=== PATIENT | female | born 1945 | race Caucasian/White ===

== ENCOUNTER 2019-10-16 11:33 | Outpatient (CLI) | payer MEDICARE, MEDICAID, SELFPAY ==
--- NOTE | 2019-10-16 11:46 | XR_ITS ---
WS: [id number] SHOULDER RIGHT TECHNIQUE: 3 views of the right shoulder CLINICAL INFORMATION: chronic right shoulder pain COMPARISON: None. FINDINGS: Mild hypertrophic changes acromioclavicular joint. Normal glenohumeral joint. Acromion is normal in a ppearance. Normal glenoid. No evidence of acute fracture dislocation. Calcified granulomas. Calcified hilar nodes. XR/XR shoulder RT min 2V* [id number] IMPRESSION: No acute right shoulder findings
== END 2019-10-16 11:34 | disposition home or self-care (01) ==
LOC: RADWPI 11:40
PROVIDERS: Family Provider Family Medicine; PCP Family Medicine; Visit Provider Family Medicine
DX: M25.511 Pain in right shoulder (principal); G89.29 Other chronic pain
CPT/HCPCS: 73030

== ENCOUNTER → 2019-11-12 14:59 | Outpatient (BNVA) | payer MEDICARE, MEDICAID, SELFPAY | PROVIDERS: Family Provider Family Medicine; PCP Family Medicine; Visit Provider Family Medicine | DX: I10 Essential (primary) hypertension (principal); E78.5 Hyperlipidemia, unspecified | CPT/HCPCS: 80053; 80061; 82043; 85025 ==

== ENCOUNTER → 2020-01-24 14:21 | Outpatient (BNVA) | payer MEDICARE, MEDICAID, SELFPAY | PROVIDERS: Family Provider Family Medicine; PCP Family Medicine Adult Medicine; Visit Provider Internal Medicine | DX: M81.0 Age-related osteoporosis without current pathological fracture (principal); Z79.899 Other long term (current) drug therapy; D86.9 Sarcoidosis, unspecified; M19.90 Unspecified osteoarthritis, unspecified site; Z86.73 Personal history of transient ischemic attack (TIA), and cerebral infarction without residual deficits | CPT/HCPCS: 36415; 99204 ==

== ENCOUNTER 2020-01-24 15:24 | Outpatient (CLI) | payer MEDICARE, MEDICAID, SELFPAY ==
--- NOTE | 2020-01-24 15:40 | XR_ITS ---
WS: [id number] TECHNIQUE: 2 views of the left hand CLINICAL INFORMATION: hand pain COMPARISON: None. FINDINGS: Osteopenia. Mild narrowing of the radiocarpal joint. Degenerative arthritis at the first CMC and STT. PIP and DIP joint narrowing worse involving the second through fifth digits. Normal metacarpals. No acute fractures. XR/XR hand LT 2V [id number] IMPRESSION: 1. Osteopenia with degenerative arthritis worse at the first CMC and IP joints
--- NOTE | 2020-01-24 15:40 | XR_ITS ---
WS: [id number] TECHNIQUE: 2 views of the right hand CLINICAL INFORMATION: hand pain COMPARISON: None. FINDINGS: Mild narrowing of the radiocarpal joint. Degenerative arthritis worse first CMC. Mild PIP and DIP javier nt narrowing. Normal metacarpals. No acute fractures. XR/XR hand RT 2V [id number] IMPRESSION: 1. Osteopenia. 2. Mild narrowing of the radiocarpal joint. 3. Degenerative arthritis worse at the first CMC and IP joints
--- NOTE | 2020-01-24 15:40 | XR_ITS ---
WS: [id number] LUMBAR SPINE TECHNIQUE: 3 views of the lumbar spine CLINICAL INFORMATION: lower back pain COMPARISON: None. FINDINGS: Suggestion of partially calcified lobulated infrarenal abdominal aortic aneurysm. This is d ifficult to visualize but measures approximately 4 cm in AP dimension. Recommend further evaluation C TA abdomen pelvis. Five [id number] lumbar vertebral bodies. Mild lumbar curve convex left. Vascular calcification. Osteopenia. Mild disc space narrowing L4-5 and L5-S1. Aortic calcification. Moderate facet arthropathy lower lumbar spine. XR/XR lumbar spine 2-3V* [id number] IMPRESSION: 1. Suggestion of lobulated calcified infrarenal abdominal aortic aneurysm. Rec ommend further evaluation with CTA abdomen pelvis. This is difficult to visuali ze but appears to measure approximately 4 cm in AP dimension 2. Mild spondylitic changes lumbar spine. Osteopenia. 3. Disc space narrowing worse at L4-L5 and L5-S1. 4. Moderate facet arthropathy lower lumbar spine.
--- NOTE | 2020-01-24 15:40 | XR_ITS ---
WS: [id number] KNEE RIGHT TECHNIQUE: 2 views of the right knee CLINICAL INFORMATION: knee pain COMPARISON: None. FINDINGS: Normal anatomic alignment. Osteopenia. Mild narrowing in the medial and lateral joint compartments. M oderate narrowing at the patellofemoral articulation. No significant effusion. Vascular calcification . XR/XR knee RT 1-2V [id number] IMPRESSION: Mild to moderate tricompartmental arthritis.
--- NOTE | 2020-01-24 15:40 | XR_ITS ---
WS: [id number] KNEE LEFT TECHNIQUE: 2 views of the left knee CLINICAL INFORMATION: knee pain COMPARISON: None. FINDINGS: Mild degenerative arthritis. No evidence of acute fracture dislocation. No significant effusion. Justin lla is normal. Vascular calcification. XR/XR knee LT 1-2V [id number] IMPRESSION: Mild degenerative arthritis. No acute fractures.
--- NOTE | 2020-01-24 15:40 | XR_ITS ---
WS: [id number] CERVICAL SPINE FLEXION EXTENSION TECHNIQUE: 3 views of the cervical spine: lateral neutral, flexion and extension views. CLINICAL INFORMATION: neck pain COMPARISON: None. FINDINGS: Exaggeration of the normal cervical lordosis. 1.5 mm anterolisthesis C4 on C5. Slight retrolisthesis C5 on C6 and C6 on C7. Normal prevertebral soft tissues. Normal C1-2 articulation. Anterolisthesis C4 on C5 in flexion measures 2 mm. This decreases to nearly neutral in extension. Disc space narrowing worse at C5-C6. XR/XR cervical spine fl/ex [id number] IMPRESSION: 1. Mild spondylitic changes. 2. Mild flexion instability C4-5 described above. 3. Disc space narrowing worse at C5-6.
== END 2020-01-24 15:25 | disposition home or self-care (01) ==
PROVIDERS: Family Provider Family Medicine; PCP Family Medicine Adult Medicine; Visit Provider Internal Medicine
DX: M54.2 Cervicalgia (principal); M54.5 Low back pain; M53.2X2 Spinal instabilities, cervical region; M47.816 Spondylosis without myelopathy or radiculopathy, lumbar region; M85.88 Other specified disorders of bone density and structure, other site; M17.0 Bilateral primary osteoarthritis of knee; M19.042 Primary osteoarthritis, left hand; M19.041 Primary osteoarthritis, right hand; M85.89 Other specified disorders of bone density and structure, multiple sites
CPT/HCPCS: 72040; 72100; 73120; 73560; 80053; 82306; 84100; 85025; 85651; 86431

== ENCOUNTER → 2020-02-25 14:13 | Outpatient (BNVA) | payer OTHER, BC, MEDICAID, SELFPAY | PROVIDERS: Family Provider Family Medicine; PCP Family Medicine Adult Medicine; Visit Provider Internal Medicine | DX: M19.90 Unspecified osteoarthritis, unspecified site (principal); M81.0 Age-related osteoporosis without current pathological fracture; Z79.899 Other long term (current) drug therapy; R70.0 Elevated erythrocyte sedimentation rate; M54.2 Cervicalgia; F17.210 Nicotine dependence, cigarettes, uncomplicated | CPT/HCPCS: 36415; 99214 ==

== ENCOUNTER 2020-02-25 15:01 | Outpatient (CLI) | payer BC, MEDICAID, SELFPAY ==
--- NOTE | 2020-02-25 15:13 | XR_ITS ---
WS: [id number] Exam: XR chest 2V* [id number] Date/Time of Exam: 02/25/2020 3:13 PM Reason For Exam: M81.0 - Age-related osteoporosis without current pathological fracture No priors. The lungs are hyperinflated and clear. Normal cardiomediastinal structures and bony elements. No pleu ral effusions. XR/XR chest 2V* [id number] IMPRESSION: 1. Pulmonary hyperinflation which may indicate obstructive lung disease. No acu te process.
== END 2020-02-25 15:02 | disposition home or self-care (01) ==
LOC: RAD 15:31 → RADWPI 15:55
PROVIDERS: PCP Family Medicine Adult Medicine; Visit Provider Internal Medicine
DX: M81.0 Age-related osteoporosis without current pathological fracture (principal)
CPT/HCPCS: 71046; 81001; 81003; 85025; 85651; 86140

== ENCOUNTER 2020-03-21 15:14 | Outpatient (CLI) | payer MEDICARE, MEDICAID, SELFPAY ==
--- NOTE | 2020-03-21 15:20 | XR_ITS ---
WS: [id number] SCREENING DEXA SCAN [facility] CLINICAL INFORMATION: M81.0 - Age-related osteoporosis without current pathological fracture COMPARISON: None. FINDINGS: The L1-L4 bone mineral density measures 0.962 g/cm2. This corresponds to a T score score of -1.8 and Z score of -0.6. Left femoral neck bone mineral density measures 0.713 g/cm2. This corresponds to a T score of -2.3 an d Z score of -1.1. Right femoral neck bone mineral density measures 0.708 g/cm2. This corresponds to a T score -2.4of an d Z score of -1.1. Mean femoral neck bone mineral density measures 0.711 g/cm2. This corresponds to a T score of -2.4 an d Z score of -1.1. XR/XR DEXA axial skeleton* [id number] IMPRESSION: Osteopenia lumbar spine. Osteopenia approaching osteoporosis in the femoral nec ks. Patient's FRAX calculated 10 year probability for major osteoporotic fracture i s 30.8 % and osteoporotic hip fracture is 13.1%.
== END 2020-03-21 15:15 | disposition home or self-care (01) ==
LOC: RADWPI 15:20
PROVIDERS: PCP Family Medicine Adult Medicine; Visit Provider Internal Medicine
DX: M81.0 Age-related osteoporosis without current pathological fracture (principal); M85.88 Other specified disorders of bone density and structure, other site
CPT/HCPCS: 77080

== ENCOUNTER 2020-05-04 22:36 | Inpatient (IN) | payer MEDICARE, MEDICAID, SELFPAY ==
--- NOTE | 2020-05-04 22:42 | XR_ITS ---
WS: [id number] Exam: XR hip RT 2-3V wo/w pel* [id number] Date/Time of Exam: 05/04/2020 10:50 PM Reason For Exam: fall There is an intertrochanteric fracture of the right hip with coxa vera deformity. The lesser trochant er is fractured. Moderate DJD of the joint compartment. Large amount of stool in the rectosigmoid col on. XR/XR hip RT 2-3V wo/w pel* [id number] IMPRESSION: 1. Intertrochanteric fracture of the right hip with coxa vera deformity.
--- NOTE | 2020-05-04 22:42 | XR_ITS ---
WS: [id number] Exam: XR knee RT 3V* [id number] Date/Time of Exam: 05/04/2020 10:50 PM Reason For Exam: fall Comparison 01/24/2020. No obvious fracture or dislocation noted. Soft tissues are unremarkable. XR/XR knee RT 3V* [id number] IMPRESSION: 1. No acute fracture or dislocation from images presented.
--- NOTE | 2020-05-04 22:42 | XR_ITS ---
WS: [id number] Exam: XR chest 1V portable [id number] Date/Time of Exam: 05/04/2020 10:50 PM Reason For Exam: cp Comparison 02/25/2020. Findings: The lungs are clear and fully expanded. Costophrenic angles are sharp. No infiltrates. Bronchovascula r relief appears normal. Cardiac silhouette is unremarkable. Bony elements are intact. XR/XR chest 1V portable [id number] IMPRESSION: Unremarkable chest radiograph.
--- NOTE | 2020-05-04 22:44 | ED_ITS ---
HPI - Fall General: Chief Complaint: Fall Stated Complaint: FALL Time Seen by Provider: 05/04/20 22:40 Source: patient and EMS Mode of arrival: EMS Limitations: no limitations History of Present Illness: HPI Narrative: 74-year-old female who is here after a ground-level fall. She states she tripped and fell roughly 30 minutes ago. She landed on her right leg and has severe hip and knee pain. She does have deformity to her leg. States the pain is sharp in nature and rates it a 9 out of 10. She is unable to bear any weight. complaint: fall Associated symptoms-after fall: Denies abdominal pain, chest pain or headache(s) Review of Systems Const: Denies: fever(s), chills, body aches or change in appetite Eyes: Denies: blurry vision or eye discomfort ENMT: Denies: throat pain or dental pain Card: Denies: chest pain Resp: Denies: dyspnea GI: Denies: abdominal pain, nausea, vomiting or diarrhea : Denies: dysuria Musc: Reports: joint pain Skin/Breast: Denies: rash Neuro: Denies: headache(s) Psych: Denies: depression Parrish/Lymph: Denies: easy bruising All/Imm: Denies: urticaria PFSH ED PFSH: Medical History Depression with anxiety Dyslipidemia Essential hypertension Fibromyalgia IBS (irritable bowel syndrome) Incontinence Obesity (BMI 30-39.9) Osteoporosis TIA (transient ischemic attack) Surgical History H/O hemorrhoidectomy H/O: hysterectomy History of appendectomy History of cholecystectomy History of tonsillectomy Family History Other CAD (coronary artery disease) Cancer Hypertension Social History Smoking and tobacco status: current every day smoker cigarettes Packs smoked per day: 1.5 Years cigarettes smoked: 60 Second hand smoke exposure: Yes Smoking risk assessment/counseling performed?: Yes Alcohol intake: current Alcohol intake frequency: holidays/special occasions only Alcohol type: beer Desire information about alcohol rehabilitation?: No Counseling given: No Desire information about substance/drug rehabilitation?: No Counseling given: No Lives independently: Yes Household members: none Marital status: Current occupational status: retired History of recent travel: No Current gender identity: Female Physical Exam Const: COMMON NORMALS: no acute distress, patient oriented x3 and healthy appearing HENMT: COMMON NORMALS: normocephalic and atraumatic HEAD & SCALP: normocephalic and atraumatic Eye: COMMON NORMALS: Equal, round and reactive pupils present and EOMs intact bilaterally PUPIL: Yes Equal, round and reactive pupils present Neck/C-Spine: COMMON NORMALS: full ROM and supple Chest: COMMONS NORMALS: normal inspection of the chest and normal palpation of entire chest wall Resp: COMMON NORMALS: normal respiratory effort, No retractions, No use of accessory muscles and clear to auscultation bilaterally AUSCULTATION: clear to auscultation bilaterally Cardio: COMMON NORMALS: regular rate, regular rhythm and No murmurs present (Cardio) RATE: regular rate RHYTHM: regular rhythm GI: COMMON NORMALS: Normal to inspection, nondistended, normoactive bowel sounds present, Soft to palpation, non-tender and no masses PALPATION: Yes Soft to palpation Extremity: NARRATIVE EXTREMITY EXAM: Tenderness over right hip femur and knee. Distal pulses are intact distal sensations are intact as well. Neuro: COMMON NORMALS: patient oriented x3, moves all extremities and no focal motor deficits Psych: COMMON NORMALS: mental status grossly normal, Normal thought process present and cooperative THOUGHT PROCESS: Normal thought process present Skin: COMMON NORMALS: no rashes or lesions noted and no wounds GENERAL SKIN EXAM: no rashes or lesions noted Course Vital Signs: Vital signs: Vital Signs Pulse Rate 71 05/04/20 22:47 Respiratory Rate 22 H 05/04/20 22:58 Blood Pressure 171/81 05/04/20 22:47 Pulse Oximetry 94 05/04/20 22:58 MDM - Fall MDM Narrative: Medical decision making narrative: Patient presents with a right hip fracture from a fall. She has no signs of head injury. I spoke to hospitalist and will admit. I also spoke to Dr. De La Fuente of orthopedics who is consulted. Imaging Data^: xr r hip: Attestation: I personally reviewed and interpreted this imaging study as follows: My impression: Displaced intertrochanteric fracture of the right hip EKG Data^: EKG 1: Attestation: I personally reviewed and interpreted this EKG as follows: EKG interpretation date: 05/04/20 EKG interpretation time: 23:06 Interpretation: nsr hr [address] or t wave abnormalities qrs 88 qtc 413 Discharge Plan Discharge Patient Disposition: Admitted As Inpatient Clinical Impression: Fall Qualifiers: Encounter type: initial encounter Qualified Code(s): W19.XXXA - Unspecified fall, initial encounter Closed right hip fracture Qualifiers: Encounter type: initial encounter Qualified Code(s): S72.001A - Fracture of unspecified part of neck of right femur, initial encounter for closed fracture Condition: Stable Coding Level of Care Code ED Fly Rail Operator for Chg Fwd Exam Comprehensive
[2020-05-04 22:47] VITALS: BP 171/81; PULSE 71; RESP 14; O2SAT 92; BMI 29.9
[2020-05-04 22:58] VITALS: RESP 22; O2SAT 94
[2020-05-04] MEDS: HYDROmorphone 1 mg/mL INJ 1 mL IVP (22:58)
--- NOTE | 2020-05-04 23:01 | ECG_ITS ---
[facility] Test Date: 2020-05-04 Pat Name: Bryce Schmidt Department: Room: Gender: Female Retail Event Assistant: : 1945 Requested By: Fabi Langford Order Number: [id number] Reading MD: SHARMILA HUNTER Measurements Intervals [place] Rate: 66 P: 50 TX: 176 QRS: -12 QRSD: 88 T: 47 QT: 400 QTc: 420 Interpretive Statements SINUS RHYTHM No previous ECG available for comparison Electronically Signed On 05-05-2020 18:35:56 MOBILE CRANE OPERATOR by SHARMILA HUNTER [email or web address]
--- NOTE | 2020-05-04 23:43 | P.HP_ITS ---
Providers/Chief Complaint Primary Care Provider: Jose Rossi MD Chief Complaint: FALL History of Present Illness Bryce Schmidt is a 74 year old female who carries history of TIA which was 2 years ago for which she takes aspirin & atorvastatin, presented today after sustaining a fall at home. Patient is stating that today she fell on her patio after twisting her ankle. She was in excruciating pain, was not able to bear any weight hence EMS was called. She did not endorse any chest pain shortness of breath seizure-like activity or syncopal event. No recent TIA or neurological changes. Diagnostics in the ER revealed right intertrochanteric hip fracture, Dr. Dykes has been consulted. At the time of my evaluation patient was complaining of muscle cramps and pain 10 she had received 2 mg of Dilaudid, I have requested fentanyl 25 mg IV push along tizanidine, there is no vascular compromise, EKG shows sinus rhythm Review of Systems Const: Denies: fever(s), chills or body aches Eyes: Denies: change in vision ENMT: Denies: throat pain Card: Denies: chest pain Resp: Denies: dyspnea GI: Denies: abdominal pain : Denies: flank pain Musc: Reports: extremity pain, joint pain, joint stiffness and muscle cramps; Denies: joint warmth Skin/Breast: Denies: lesions Neuro: Denies: headache(s) or lack of coordination Psych: Denies: anxiety Endo: Denies: polyuria Parrish/Lymph: Denies: easy bruising All/Imm: Denies: urticaria Medications/Allergies Home Medications Medication Instructions Recorded Confirmed Last Taken Type denosumab 60 mg/mL subcutaneous 60 mg SUBCUT .every 6 months ml 10/10/19 04/16/20 Unknown History syringe ascorbate calcium (vitamin C) 500 500 mg PO DAILY 12/26/19 04/16/20 Unknown His tory mg tablet cranberry extract 250 mg capsule 250 mg PO DAILY 12/26/19 04/16/20 Unknown History diphenhydramine 25 1 tab PO Q6H PRN 12/26/19 04/16/20 Unknown History mg-acetaminophen 500 mg tablet vitamin E 200 unit capsule 200 unit PO DAILY 12/26/19 04/16/20 Unknown History cholecalciferol (vitamin D3) 1,250 50,000 unit PO .qweek #14 cap 11/16/20 01/06/21 Unknown Rx mcg (50,000 unit) capsule fenofibrate micronized 200 mg 200 mg PO DAILY #30 cap 02/25/20 04/16/20 Unknown Rx capsule Nexium 40 mg capsule,delayed 40 mg PO DAILY 30 Days #30 cap NS 04/01/20 04/16/20 Unknown Rx release acetaminophen 500 mg tablet 500 mg PO DAILY PRN tab 04/16/20 04/16/20 Unknown History albuterol sulfate 90 mcg/actuation 2 puff INHALATION QID PRN 30 Days 04/16/20 04/16/20 Unknown Rx aerosol inhaler #18 g ibuprofen 200 mg capsule 600 mg PO Q6H PRN cap 04/16/20 04/16/20 Unknown History potassium 99 mg tablet 99 mg PO DAILY tab 04/16/20 04/16/20 Unknown History umeclidinium 62.5 mcg-vilanterol 1 inh INHALATION DAILY 30 Days #60 04/16/20 04/16/20 Unknown Rx 25 mcg/actuation powdr for ea inhalation cholecalciferol (vitamin D3) 1,250 50,000 unit PO .qweek #14 cap 04/17/20 Unknown Rx mcg (50,000 unit) capsule amlodipine 10 mg tablet 10 mg PO DAILY #30 tab 04/21/20 04/21/20 Unknown Rx atorvastatin 80 mg tablet 80 mg PO DAILY #30 tab 04/21/20 04/21/20 Unknown Rx clopidogrel 75 mg tablet 75 mg PO DAILY #90 tab 04/21/20 04/21/20 Unknown Rx fluticasone propionate 50 1 spray INTRANASAL BID #15.8 ml 04/21/20 04/21/20 Unkn own Rx mcg/actuation nasal spray,suspension multivitamin,sy-sfbc-wekkkjpo 1 tab PO DAILY 30 Days #30 tab 04/21/20 04/21/20 Unknown Rx nebivolol 20 mg tablet 20 mg PO DAILY #30 tab 04/21/20 04/21/20 Unknown Rx venlafaxine 75 mg capsule,extended 75 mg PO DAILY #30 cap 04/21/20 04/21/20 Unknown Rx release 24 hr Allergies Allergy/AdvReac Type Severity Reaction Status Date / Time alprazolam [From Xanax] AdvReac Mild i pass Verified 04/16/20 16:18 out clonidine AdvReac Mild memory loss Verified 04/16/20 16:18 codeine AdvReac Mild unknown Verified 04/16/20 16:18 duloxetine [From Cymbalta] AdvReac Mild insomnia Verified 04/16/20 16:18 levetiracetam AdvReac Mild depression Verified 04/16/20 16:18 metformin AdvReac Mild diarrhea Verified 04/16/20 16:18 valsartan [From Diovan] AdvReac Mild unknown Verified 04/16/20 16:18 PFSH Acute PFSH: Medical History Depression with anxiety Dyslipidemia Essential hypertension Fibromyalgia IBS (irritable bowel syndrome) Incontinence Obesity (BMI 30-39.9) Osteoporosis TIA (transient ischemic attack) Surgical History H/O hemorrhoidectomy H/O: hysterectomy History of appendectomy History of cholecystectomy History of tonsillectomy Family History Other CAD (coronary artery disease) Cancer Hypertension Social History Smoking and tobacco status: current every day smoker cigarettes Packs smoked per day: 1.5 Years cigarettes smoked: 60 Second hand smoke exposure: Yes Smoking risk assessment/counseling performed?: Yes Alcohol intake: current Alcohol intake frequency: holidays/special occasions only Alcohol type: beer Desire information about alcohol rehabilitation?: No Counseling given: No Desire information about substance/drug rehabilitation?: No Counseling given: No Lives independently: Yes Household members: none Marital status: Current occupational status: retired History of recent travel: No Current gender identity: Female Vitals/I&O/Wt Last Vital Signs Pulse 71 05/04/20 22:47 Resp 22 H 05/04/20 22:58 BP 171/81 05/04/20 22:47 Pulse Ox 94 05/04/20 22:58 Weight last 48 hrs Weight 81.647 kg Physical Exam Narrative: EXAM NARRATIVE: Elderly female Who appears to be in distress complaining of 10/10 right hip pain S1, S2 sinus rhythm no signs of heart failure No neurological deficit EOMI, PERRLA Awake alert oriented x3 Bilateral breath sounds without adventitious rhonchi or crackles Abdomen soft nontender bowel sound present No extremity no edema gangrene or ulcer No vascular compromise of lower extremity No hematoma noted around right hip area A&P Assessment and plan (1) Fall: Status: Acute Qualifiers: Encounter type: initial encounter Qualified Code(s): W19.XXXA - Unspecified fall, initial encounter (2) Closed right hip fracture: Status: Acute Qualifiers: Encounter type: initial encounter Qualified Code(s): S72.001A - Fracture of unspecified part of neck of right femur, initial encounter for closed fracture Additional A&P Information Right intertrochanteric hip fracture No vascular compromise Analgesia with fentanyl and Dilaudid along bowel regimen N.p.o. D5 half-normal saline maintenance rate to be initiated Dr. De La Fuente has been consulted Patient is attributing her fall to losing her balance and twisting her right ankle no signs of syncope, EKG sinus rhythm History of TIA: No acute neurological deficit, I would only continue aspirin along with atorvastatin discontinue Plavix Perioperative evaluation: Patient has decent functional status at home, I would continue her nebivolol aspirin and atorvastatin, no acute cardiology work-up Considering urgency of right hip fracture repair, RCRI class I risk, patient does not take lisinopril DVT prophylaxis SCDs, will need anticoagulating agent for discharge N.p.o. Full code Attestations Medical Necessity Statement*: Anticipating stay in the hospital course more than 2 midnights currently need management for right hip fracture Time Spent in Patient Care: Greater than 35 minutes (>than 50% of time spent in counselling and/or direct pt care on unit) . 50mins Coding Level of Care Code Acute Sort Supervisor for Chg Fwd Diagnoses Fall W19.XXXA Encounter type: initial encounter Closed right hip fracture S72.001A Encounter type: initial encounter
[2020-05-05] VITALS (32 sets, daily range): BP systolic 100–195; BP diastolic 68–103; PULSE 20–91; RESP 13–85; TEMP 36.6–37.6; O2SAT 90–96
--- NOTE | 2020-05-05 | SCC_ITS ---
Procedure Done: Open reduction internal fixation right hip with intramedullary device 75.5 seconds of fluoroscopic guidance, for a cumulative dose of 9.55 mGy, was provided to Dr. De La Fuente by the radiology department. C-arm images of the RIGHT hip were saved for the patient's permanent record. [facility]
[2020-05-05] MEDS: HYDROmorphone 1 mg/mL INJ 1 mL IVP (00:45)
[2020-05-05 01:03] LABS: Basophils # 0.1 10^3/uL (0.0-0.1); Basophils % 0.3 %; Eosinophils # 0.1 10^3/uL (0.0-0.8); Eosinophils % 0.4 %; Hematocrit 40.3 % (37.0-47.0); Hemoglobin 13.2 g/dL (11.5-15.3); Lymphocytes # 1.8 10^3/uL (0.8-4.8); Lymphocytes % 9.4 %; Mean Corpuscular HGB Conc 32.8 g/dL (30.0-36.0); Mean Corpuscular Hemoglobin 30.4 pg (28.0-34.0); Mean Corpuscular Volume 92.9 fL (81-99); Mean Platelet Volume 9.9 fL (7.4-10.4); Monocytes # 0.8 10^3/uL (0.2-0.9); Monocytes % 4.2 %; Neutrophils # 16.29 10^3/uL (1.8-7.7); Neutrophils % 85.1 %; Nucleated Red Blood Cells % 0 %; Platelet Count 457 10^3/cmm (130-400); Red Blood Count 4.34 10^6/uL (4.1-5.3); Red Cell Distribution Width 13.2 % (12.1-15.1); White Blood Count 19.1 10^3/uL (4.0-10.0)
[2020-05-05 01:09] LABS: INR 1.08 (0.8-1.2)
[2020-05-05 01:17] LABS: Alanine Aminotransferase 18 U/L (0-33); Albumin Level 3.8 g/dL (3.5-5.2); Alkaline Phosphatase 81 IU/L (35-105); Anion Gap 15.5 (5-19); Aspartate Amino Transferase 18 U/L (0-32); Blood Urea Nitrogen 21 mg/dL (8-23); Calcium 9.4 mg/dL (8.5-10.5); Carbon Dioxide 22 mmol/L (22-29); Chloride 101 mmol/L (98-107); Globulin 3.2 g/dL (1.3-4.6); Glucose 172 mg/dL (65-115); Osmolality Calculated 285 mOsm/kg (285-295); Potassium 4.5 mmol/L (3.5-5.1); Sodium 134 mmol/L (136-145); Total Bilirubin 0.3 mg/dL (0.15-1.2)
[2020-05-05] MEDS: dextrose 5%-sod chloride 0.45% 1,000 ML 30 ML IV (02:40)
[2020-05-05] MEDS: HYDROmorphone 1 mg/mL INJ 1 mL 0.5 MG IVP ×3 (05:17→15:17)
[2020-05-05 05:31] LABS: Basophils # 0.1 10^3/uL (0.0-0.1); Basophils % 0.2 %; Hematocrit 39.7 % (37.0-47.0); Hemoglobin 12.9 g/dL (11.5-15.3); Lymphocytes # 1.3 10^3/uL (0.8-4.8); Lymphocytes % 6.4 %; Mean Corpuscular HGB Conc 32.5 g/dL (30.0-36.0); Mean Corpuscular Hemoglobin 30.5 pg (28.0-34.0); Mean Corpuscular Volume 93.9 fL (81-99); Mean Platelet Volume 10.1 fL (7.4-10.4); Monocytes # 0.8 10^3/uL (0.2-0.9); Monocytes % 4.1 %; Neutrophils # 17.84 10^3/uL (1.8-7.7); Neutrophils % 88.8 %; Nucleated Red Blood Cells % 0 %; Platelet Count 407 10^3/cmm (130-400); Red Blood Count 4.23 10^6/uL (4.1-5.3); Red Cell Distribution Width 13.2 % (12.1-15.1); White Blood Count 20.1 10^3/uL (4.0-10.0)
[2020-05-05 06:39] LABS: Anion Gap 19.7 (5-19); Blood Urea Nitrogen 21 mg/dL (8-23); Calcium 9.7 mg/dL (8.5-10.5); Carbon Dioxide 21 mmol/L (22-29); Chloride 104 mmol/L (98-107); Glucose 148 mg/dL (65-115); Osmolality Calculated 296 mOsm/kg (285-295); Potassium 4.7 mmol/L (3.5-5.1); Sodium 140 mmol/L (136-145)
[2020-05-05 06:41] LABS: Creatinine Clr Calc Pharmacy 44.7273
--- NOTE | 2020-05-05 09:27 | PC.CHAP ---
Pastoral Care Encounter/Spiritual Assessment Type of Contact [] Declined supervisor patching visit [] Patient/Family/Request visit [] Outpatient visit [] Follow-up visit [] Physician referral [] Code/Alert [x] Routine visit [] Staff referral [] Actively dying [x] Patient sleeping [] Family support [] [] Out of room [] Palliative care [] [] Receiving care in room [] Pre-surgical visit [] Trauma [] Long length of stay [] ICU visit [] Other: Relational/Emotional Strength [] Patient feels connected with others/family/visitors/staff [] Distress [] Loneliness/isolation [] Abandonment Spirituality of Patient [] Person of Katerina [] Attends Orthodoxy of their Katerina [] Believes in Prayer [] Reads Bible or Latter Day materials [] There are Spiritual issues to be addressed Admitting Office Escort Interventions [] Prayer [] Active listening [] Non-anxious presence [] Spiritual/emotional support [] Crisis/trauma care [] Spiritual counseling [] Bereavement support [] Provided bereavement packet [] Provided Bible/devotional materials [] Provided toy/stuffed animal, coloring book to patient or family member [] Provided Communion [] Anointing/[place] [] Salvation [] Completed spiritual assessment [] Other: Impact on Illness or Injury [] Angry [] Fearful [] Anxious [] Often cries [] Exhaustion [] Unable to work [] Unable to attend congregation [] Unable to walk/stand [] Unable to read [] Unable to drive [] Unable to eat/drink [] Unable to sleep [] Unable to be with family [] Patient intubated [] Other: Summary Time spent with patient
[2020-05-05 10:49] LABS: SARS Covid-2 Antigen Negative (Negative)
--- NOTE | 2020-05-05 11:42 | P.PN_ITS ---
Subjective Subjective: Interval history: Noted overnight. On examination patient lying comfortably in bed. Complaining of extreme pain in the hip. Denies any nausea, vomiting, headache. States that this is the worst pain she has had in her life. Patient is due for OR at around 3 PM with orthopedics. Vitals/I&O/Wt Last Vital Signs Temp 98.7 F 05/05/20 11:35 Pulse 77 05/05/20 11:35 Resp 19 H 05/05/20 11:35 BP 175/79 05/05/20 11:35 Pulse Ox 92 05/05/20 11:35 Weight last 48 hrs Weight 81.647 kg Physical Exam Narrative: EXAM NARRATIVE: Elderly female Who appears to be in distress complaining of 10/10 right hip pain S1, S2 sinus rhythm no signs of heart failure No neurological deficit EOMI, PERRLA Awake alert oriented x3 Bilateral breath sounds without adventitious rhonchi or crackles Abdomen soft nontender bowel sound present No extremity no edema gangrene or ulcer No vascular compromise of lower extremity No hematoma noted around right hip area Urinary Catheter Management^: Klein Latex: Cath Placed During This Visit: yes Reason for Continuing Indwelling Catheter: Perioperative Use in Selected Surgeries Urinary Catheter Date of Insertion: 05/05/20 Urinary Catheter Time of Insertion: 01:30 Data : 05/05/20 04:47 05/05/20 04:47 A&P Assessment and plan (1) Intertrochanteric fracture of right hip: Status: Acute (2) Fall: Status: Acute Qualifiers: Encounter type: initial encounter Qualified Code(s): W19.XXXA - Unspecified fall, initial encounter (3) Leukocytosis: Status: Acute (4) COPD (chronic obstructive pulmonary disease): Status: Acute (5) Essential hypertension: Status: Chronic (6) MARY BETH (acute kidney injury): Status: Acute Additional A&P Information Right intertrochanteric hip fracture: Orthopedics has been consulted and plan for OR today. Dilaudid 0.5 IV every 4 hours, Tylenol 1 g every 8 hours for pain control. Anticoagulation, physical therapy, perioperative antibiotics as per orthopedics. Will continue to monitor hemoglobin postoperatively. Continue D5 half NS at 50 cc/h. Leukocytosis: Most likely secondary to stress response but cannot rule out possible sepsis. Check blood culture, procalcitonin, MRSA swab. Urine analysis negative for any signs of UTI, chest x-ray negative for any signs of consolidations. For now start patient on Zosyn as patient is going to the OR today. If patient continues to remain afebrile we will discontinue antibiotics in next 48 hours. MARY BETH: Most likely secondary dehydration. Continue to monitor renal functions daily. Medical reconciliation done for nephrotoxic drugs. Increase fluid as above to 50 cc/h. COPD: Start patient on DuoNebs every 6 hours. Oxygen supplementation keeping saturation over 92%. Hypertension: Goal blood pressure less than 140/90 mmHg Restart home medications. Continue other chronic home medications. Check iron panel, TSH. DVT prophylaxis SCDs, will need anticoagulating agent for discharge N.p.o. Full code Attestations Medical Necessity Statement*: Requires further hospitalization for management of right intertrochanteric hip fracture post fall, MARY BETH, leukocytosis under evaluation Time Spent in Patient Care: Greater than 35 minutes (>than 50% of time spent in counselling and/or direct pt care on unit) . Coding Level of Care Code Acute Speech Pathology Supervisor for Colton Lee Diagnoses Intertrochanteric fracture of right hip S72.141A Fall W19.XXXA Encounter type: initial encounter Leukocytosis D72.829 COPD (chronic obstructive pulmonary disease) J44.9 Essential hypertension I10 MARY BETH (acute kidney injury) N17.9
[2020-05-05] MEDS: amlodipine 10 mg Tablet PO (11:47)
[2020-05-05] MEDS: piperacillin-tazobactam 3.375 GM in sodium chloride 0.9% (plus) 50 ML IV (11:52)
[2020-05-05 13:07] LABS: Procalcitonin 0.07 ng/mL (0-0.5)
[2020-05-05 13:13] LABS: Thyroid Stimulating Hormone 3.07 uIU/mL (0.27-4.20)
[2020-05-05 13:28] LABS: Iron 50 ug/dL (37-145); Percent Saturation 12.5 % (20-50); Total Iron Binding Capacity 397 mcg/dl; Unsaturated Iron Binding 347 ug/dL (112-347)
[2020-05-05] MEDS: ipratropium-albuterol 3 mL Neb INHALATION (14:47)
--- NOTE | 2020-05-05 16:02 | PM.CONSULT ---
Providers/Reason For Consult Consulting Physican/Specialty*: Radha De La Fuente MD Reason for Consult*: Right intratrochanteric hip fracture Attending Physician: Michael Deleon MD History of Present Illness History of Present Illness Bryce Schmidt is a 74 year old female who fell at home in her backyard. She states she has some problems with dizziness but actually was doing well today. She states she stepped off the corner of a informatics physician liaison in her yard falling hard in the grass with a pop and immediate pain in her right hip. She is unable to bear weight and called EMS. She was transferred here where radiographs revealed a right intertrochanteric hip fracture. She states she uses a walker on occasion but most relies on a cane for gait. She lives alone. Meds/Allergies Home Medications and Allergies Home Medications Medication Instructions Recorded Confirmed Last Taken Type ascorbate calcium (vitamin C) 500 500 mg PO DAILY 12/26/19 05/05/20 05/04/20 History mg tablet cranberry extract 250 mg capsule 250 mg PO DAILY 12/26/19 05/05/20 05/04/20 History vitamin E 200 unit capsule 400 unit PO DAILY 12/26/19 05/05/20 05/04/20 History fenofibrate micronized 200 mg 200 mg PO DAILY #30 cap 02/25/20 05/05/20 05/04/20 Rx capsule Nexium 40 mg capsule,delayed 40 mg PO DAILY 30 Days #30 cap NS 04/01/20 05/05/20 05/04/20 Rx release acetaminophen 500 mg tablet 500 mg PO DAILY PRN tab 04/16/20 05/05/20 Unknown History albuterol sulfate 90 mcg/actuation 2 puff INHALATION QID PRN 30 Days 04/16/20 05/05/20 Unknown Rx aerosol inhaler #18 g ibuprofen 200 mg capsule 600 mg PO Q6H PRN cap 04/16/20 05/05/20 Unknown History potassium 99 mg tablet 99 mg PO DAILY tab 04/16/20 05/05/20 05/04/20 History umeclidinium 62.5 mcg-vilanterol 1 inh INHALATION DAILY 30 Days #60 04/16/20 05/05/20 05/04/20 Rx 25 mcg/actuation powdr for ea inhalation amlodipine 10 mg tablet 10 mg PO DAILY #30 tab 01/03/0105/05/20 05/04/20 Rx atorvastatin 80 mg tablet 80 mg PO DAILY #30 tab 04/21/20 05/05/20 05/04/20 Rx clopidogrel 75 mg tablet 75 mg PO DAILY #90 tab 04/21/20 05/05/20 05/04/20 Rx fluticasone propionate 50 1 spray INTRANASAL BID #15.8 ml 04/21/20 05/05/20 Unknown Rx mcg/actuation nasal spray,suspension multivitamin,[id number] 1 tab PO DAILY 30 Days #30 tab 04/21/20 05/05/20 05/04/20 Rx nebivolol 20 mg tablet 20 mg PO DAILY #30 tab 04/21/20 05/05/20 05/04/20 Rx venlafaxine 75 mg capsule,extended 75 mg PO DAILY #30 cap 04/21/20 05/05/20 05/04/20 Rx release 24 hr cholecalciferol (vitamin D3) 25 mcg PO DAILY 05/05/20 05/05/20 05/04/20 History [Vitamin D3] Allergies Allergy/AdvReac Type Severity Reaction Status Date / Time alprazolam [From Xanax] AdvReac Mild i pass Verified 04/16/20 16:18 out clonidine AdvReac Mild memory loss Verified 04/16/20 16:18 codeine AdvReac Mild unknown Verified 04/16/20 16:18 duloxetine [From Cymbalta] AdvReac Mild insomnia Verified 04/16/20 16:18 levetiracetam AdvReac Mild depression Verified 04/16/20 16:18 metformin AdvReac Mild diarrhea Verified 04/16/20 16:18 valsartan [From Diovan] AdvReac Mild unknown Verified 04/16/20 16:18 Current Medications Current Medications Generic Name Dose Route Start Last Admin Trade Name Freq PRN Reason Stop Dose Admin Albuterol/Ipratropium 3 ml 05/05/20 15:00 05/05/20 14:47 Ipratropium-Albuterol 3 Ml Neb INHALATION 3 ml Q6H.RESPIRATORY ANN Administration Amlodipine Besylate 10 mg 05/05/20 09:00 05/05/20 11:47 Amlodipine 10 Mg Tablet PO 10 mg DAILY ANN Administration Atorvastatin Calcium 80 mg 05/05/20 09:00 05/05/20 09:12 Atorvastatin 40 Mg Tablet PO Not Given DAILY ANN Hydromorphone HCl 0.5 mg 05/05/20 01:23 05/05/20 15:17 Hydromorphone 1 Mg/Ml Inj 1 Ml IVP 0.5 mg Q4H PRN Administration AGITATION Dextrose/Sodium Chloride 1,000 mls @ 50 mls/hr 05/05/20 01:23 05/05/20 02:40 Dextrose 5%-Sod Chloride 0.45% IV 30 mls/hr .Q20H ANN Administration Piperacillin Sod/Tazobactam 50 mls @ 12.5 mls/hr 05/05/20 12:30 05/05/20 11:52 Sod 3.375 gm/ Sodium Chloride IV 12.5 mls/hr Q8H ANN Administration Protocol Acetaminophen 1,000 mg in 100 mls @ 400 mls/hr 05/05/20 12:30 05/05/20 12:30 Ofirmev IV 400 mls/hr Q8H ANN Administration Nebivolol 20 mg 05/05/20 09:00 05/05/20 11:47 Nebivolol 5 Mg Tablet PO 20 mg DAILY ANN Administration Pantoprazole Sodium 40 mg 05/05/20 09:00 05/05/20 09:[address] 40 Mg Tablet PO Not Given DAILY ANN Senna/Docusate Sodium 1 tab 05/05/20 09:00 05/05/20 09:13 Sennosides-Docusate Tablet PO Not Given DAILY ANN PFSH Acute PFSH: Medical History (Updated 05/05/20 @ 16:06 by Siddhartha De La Fuente MD) Depression with anxiety Dyslipidemia Essential hypertension Fibromyalgia GERD (gastroesophageal reflux disease) IBS (irritable bowel syndrome) Incontinence Obesity (BMI 30-39.9) Osteoporosis TIA (transient ischemic attack) Surgical History H/O hemorrhoidectomy H/O: hysterectomy History of appendectomy History of cholecystectomy History of tonsillectomy Family History Other CAD (coronary artery disease) Cancer Hypertension Social History Smoking and tobacco status: current every day smoker cigarettes Packs smoked per day: 1.5 Years cigarettes smoked: 60 Second hand smoke exposure: Yes Smoking risk assessment/counseling performed?: Yes Alcohol intake: current Alcohol intake frequency: holidays/special occasions only Alcohol type: beer Desire information about alcohol rehabilitation?: No Counseling given: No Desire information about substance/drug rehabilitation?: No Counseling given: No Lives independently: Yes Household members: none Marital status: Current occupational status: retired History of recent travel: No Current gender identity: Female Vitals/I&O/Wt Last Vital Signs Temp 98.5 F 05/05/20 15:47 Pulse 83 05/05/20 15:47 Resp 17 05/05/20 15:47 BP 151/88 05/05/20 15:47 Pulse Ox 96 05/05/20 15:47 Weight last 48 hrs Weight 180 lb Physical Exam Narrative: EXAM NARRATIVE: Patient is a pleasant female supine in stretcher in no obvious distress. She answers questions appropriately and is a good historian. She has shortening and external rotation of the right hip. There is exquisite pain with motion of the right hip. Will flex and extend the right toes and ankle. She has a palpable Trevino pedis pulse. Her sensation is intact to light touch. Urinary Catheter Management^: Klein Latex: Cath Placed During This Visit: yes Reason for Continuing Indwelling Catheter: Perioperative Use in Selected Surgeries Urinary Catheter Date of Insertion: 05/05/20 Urinary Catheter Time of Insertion: 01:30 Data Micro: Micro: Microbiology 05/05/20 12:55 Blood Culture - Pr eliminary Blood SPECIMEN [facility] 05/05/20 12:55 Blood Culture - Pr eliminary Blood SPECIMEN [facility] Imaging^: Xray Ortho: My impression: Patient has a intratrochanteric fracture of the right hip consisting of 2 predominant fragments. She has generalized ostial pi?a of her bones. No degenerative changes are seen of the right hip. A&P Assessment and plan (1) Intertrochanteric fracture of right hip: I discussed options with the patient.. I told the patient we could treat this nonoperatively but certainly they would be at risk for medical problems without surgery. Theywould have problems with pain that would require narcotics for pain control. They would require a long period of bedrest spa assistant manager risk for pneumonia and skin breakdown. I discussed surgical intervention with the patient. I told them with open reduction internal fixation they should be able to be mobilized and resume ambulatory status. We can eliminate the problems associated with prolonged bed rest and would have better control of pain. Certainly there would be inherent risk with surgery. These would would include the risk of cardiac complications, stroke, infection, and even . I discussed risk of any orthopedic implant including nonunion, malunion, a component failure. I discussed the possible need for component removal. I discussed risk of deep venous thromboses and pulmonary emboli that are present with any treatment and the importance of DVT prophylaxis. The patient expressed good understanding of alternative treatments, seem to comprehend, and agrees to surgical intervention. The patient lives alone and will need correction placement. Status: Acute Coding Level of Care Code Acute Gardening Supervisor for Colton Lee Diagnoses Intertrochanteric fracture of right hip S72.141A
--- NOTE | 2020-05-05 16:35 | P.ANESASSM_ITS ---
Pre-Anesthetic Assessment Pre-Anesthetic Assessment: Height/Weight: Height 1.65 m Weight 81.647 kg Temp Pulse Resp BP Pulse Ox 98.5 F 83 17 151/88 96 05/05/20 15:47 05/05/20 15:47 05/05/20 15:47 05/05/20 15:47 05/05/20 15:47 Preop Diagnosis: Right intratrochanteric hip fracture Proposed Procedure: Operation Date: 05/05/20 15:00 Proposed Procedures p Trochanteric Femoral Nail(Right) - Siddhartha De La Fuente MD Was Beta Abhilash taken within 24 hours: Yes Last intake: Intake Last Liquid Date 05/04/20 Last Liquid Time 18:00 Last Solid Date 05/04/20 Last Solid Time 18:00 Social: Social History: Tobacco and No alcohol Exam: Pre-Anes Outpt Exam: alert, oriented x 3 and regular rate & rhythm Airway: Submandibular: WNL Cervical ROM: WNL MP: 2 Dentition: False Pulmonary: Pulmonary: COPD CV/HEM: CV/HEM: HTN Metabolic: Metabolic: Morbid obesity Neuropsych: Neuropsych: CVA Anesthetic Plan: ASA status: 3 Anesthesia: General Risk of > 500 ml blood loss (7ml/kg in children): Yes, adequate IV access and fluids planned Meds/Allergies Current Medications: Current Medications Generic Name Dose Route Start Last Admin Trade Name Freq PRN Reason Stop Dose Admin Albuterol/Ipratrop ium 3 ml 05/05/20 15:00 05/05/20 14:47 Ipratropium-Albu terol 3 Ml Neb INHALATION 3 ml Q6H.RESPIRATORY S CH Administration Amlodipine Besylat e 10 mg 05/05/20 09:00 05/05/20 11:47 Amlodipine 10 Mg Tablet PO 10 mg DAILY ANN Administration Atorvastatin Calci um 80 mg 05/05/20 09:00 05/05/20 09:12 Atorvastatin 40 Mg Tablet PO Not Given DAILY ANN Hydromorphone HCl 0.5 mg 05/05/20 01:23 05/05/20 15:17 Hydromorphone 1 Mg/Ml Inj 1 Ml IVP 0.5 mg Q4H PRN Administration AGITATION Dextrose/Sodium Ch loride 1,000 mls @ 50 ml s/hr 05/05/20 01:23 05/05/20 02:40 Dextrose 5%-Sod Chloride 0.45% IV 30 mls/hr .Q20H ANN Administration Piperacillin Sod/T azobactam 50 mls @ 12.5 mls /hr 05/05/20 12:30 05/05/20 11:52 Sod 3.375 gm/ So dium Chloride IV 12.5 mls/hr Q8H ANN Administration Protocol Acetaminophen 1,000 mg in 100 m ls @ 400 mls/hr 05/05/20 12:30 05/05/20 12:30 Ofirmev IV 400 mls/hr Q8H ANN Administration Nebivolol 20 mg 05/05/20 09:00 05/05/20 11:47 Nebivolol 5 Mg T ablet PO 20 mg DAILY ANN Administration Pantoprazole Sodiu m 40 mg 05/05/20 09:00 05/05/20 09:[address] 40 Mg Tablet PO Not Given DAILY ANN Senna/Docusate Sod ium 1 tab 05/05/20 09:00 05/05/20 09:13 Sennosides-Docus ate Tablet PO Not Given DAILY ANN PFSH Anesthesia PFSH: Medical History (Updated 05/05/20 @ 16:06 by Siddhartha De La Fuente MD) Depression with anxiety Dyslipidemia Essential hypertension Fibromyalgia GERD (gastroesophageal reflux disease) IBS (irritable bowel syndrome) Incontinence Obesity (BMI 30-39.9) Osteoporosis TIA (transient ischemic attack) Surgical History H/O hemorrhoidectomy H/O: hysterectomy History of appendectomy History of cholecystectomy History of tonsillectomy Family History Other CAD (coronary artery disease) Cancer Hypertension Social History Smoking and tobacco status: current every day smoker cigarettes Packs smoked per day: 1.5 Years cigarettes smoked: 60 Second hand smoke exposure: Yes Smoking risk assessment/counseling performed?: Yes Alcohol intake: current Alcohol intake frequency: holidays/special occasions only Alcohol type: beer Desire information about alcohol rehabilitation?: No Counseling given: No Desire information about substance/drug rehabilitation?: No Counseling given: No Lives independently: Yes Household members: none Marital status: Current occupational status: retired History of recent travel: No Current gender identity: Female Data Anesthesia CBC & Chem 7: 05/05/20 04:47 05/05/20 04:47 Other Labs: Laboratory Results - last 48 hr 05/05/20 05/05/20 05/05/20 00:48 00:48 00:48 WBC 19.1 H RBC 4.34 Hgb 13.2 Hct 40.3 MCV 92.9 MCH 30.4 MCHC 32.8 RDW 13.2 Plt Count 457 H MPV 9.9 Neut % (Auto) 85.1 Lymph % (Auto) 9.4 [place] % (Auto) 4.2 Eos % (Auto) 0.4 Baso % (Auto) 0.3 Neut # (Auto) 16.29 H Lymph # (Auto) 1.8 [place] # (Auto) 0.8 Eos # (Auto) 0.1 Baso # (Auto) 0.1 Nucleated RBC % (auto) 0 Nucleated RBCs # 0.0 PT 14.30 INR 1.08 Sodium 134 L Potassium 4.5 Chloride 101 Carbon Dioxide 22 Anion Gap 15.5 BUN 21 Creatinine 1.1 H GFR Calculation Not Reportable Glucose 172 H Calculated Osmolality 285 Calcium 9.4 Iron TIBC % Saturation Unsat Iron Binding Total Bilirubin 0.3 AST 18 ALT 18 Alkaline Phosphatase 81 Total Protein 7.0 Albumin 3.8 Globulin 3.2 Procalcitonin TSH SARS-CoV-2 Ag (Rapid) 05/05/20 05/05/20 05/05/20 04:47 04:47 04:47 WBC 20.1 H RBC 4.23 Hgb 12.9 Hct 39.7 MCV 93.9 MCH 30.5 MCHC 32.5 RDW 13.2 Plt Count 407 H MPV 10.1 Neut % (Auto) 88.8 Lymph % (Auto) 6.4 [place] % (Auto) 4.1 Eos % (Auto) 0.0 Baso % (Auto) 0.2 Neut # (Auto) 17.84 H Lymph # (Auto) 1.3 [place] # (Auto) 0.8 Eos # (Auto) 0.0 Baso # (Auto) 0.1 Nucleated RBC % (auto) 0 Nucleated RBCs # 0.0 PT INR Sodium 140 Potassium 4.7 Chloride 104 Carbon Dioxide 21 L Anion Gap 19.7 H BUN 21 Creatinine 1.2 H GFR Calculation Not Reportable Glucose 148 H Calculated Osmolality 296 H Calcium 9.7 Iron 50 TIBC 397 % Saturation 12.5 L Unsat Iron Binding 347 Total Bilirubin AST ALT Alkaline Phosphatase Total Protein Albumin Globulin Procalcitonin 0.07 TSH SARS-CoV-2 Ag (Rapid) 05/05/20 05/05/20 04:47 09:58 WBC RBC Hgb Hct MCV MCH MCHC RDW Plt Count MPV Neut % (Auto) Lymph % (Auto) [place] % (Auto) Eos % (Auto) Baso % (Auto) Neut # (Auto) Lymph # (Auto) [place] # (Auto) Eos # (Auto) Baso # (Auto) Nucleated RBC % (auto) Nucleated RBCs # PT INR Sodium Potassium Chloride Carbon Dioxide Anion Gap BUN Creatinine GFR Calculation Glucose Calculated Osmolality Calcium Iron TIBC % Saturation Unsat Iron Binding Total Bilirubin AST ALT Alkaline Phosphatase Total Protein Albumin Globulin Procalcitonin TSH 3.07 SARS-CoV-2 Ag (Rapid) Negative Micro: Microbiology 05/05/20 12:55 Blood Culture - Preliminary Blood SPECIMEN COLLECTED 05/05/20 12:55 Blood Culture - Preliminary Blood SPECIMEN COLLECTED Cardiac Studies: No Data to Display
--- NOTE | 2020-05-05 16:47 | PC.RESP ---
Smoking Cessation and Pulmonary Rehab information sent to patient.
[2020-05-05] MEDS: sodium chloride 0.9% 1,000 ML 30 ML IV (17:30)
[2020-05-05] MEDS: fentaNYL 50 mcg/mL INJ 2mL IVP ×3 (17:45→20:51)
--- NOTE | 2020-05-05 20:11 | PM.OP ---
Operative Report Date of procedure: May 05, 2020 Pre-op Diagnosis: Right intratrochanteric hip fracture Post-op diagnosis: same Post-op Findings: Same Procedure Done: Open reduction internal fixation right hip with intramedullary device Implants: Vandana gamma nail 10 x 300 mm 105 mm lag screw Pathology: none sent Surgeon: Siddhartha De La Fuente Anesthesia: General Estimated blood loss (mL): 200 Findings: The patient had a varus two-part right intratrochanteric hip fracture. Procedure: The patient was taken to the operating room. They were given 1 g of Ancef. They were positioned on the fracture table with the right lower extremity in gentle traction. A timeout was performed. A 2 cm long incision was made proximal to the greater trochanter scalpel blade. Dissection was carried down to tip the greater trochanter. A guidepin was passed manually from the tip of the trochanter down the shaft. The proximal reamer was utilized to open up the proximal canal. An 10 mm 300 mm Vandana gamma nail was passed down the canal without difficulty. Under visualization of fluoroscopy a guidepin was driven up into the head and neck at 125? angle. It was measured at 105 mm in length and a lag screw similar length was then placed and locked into place with the proximal locking screw. As the screw engaged the lateral cortex of the distal femur and rotational stability was obtained no distal locking screw was placed. Intraoperative imaging was obtained verifying satisfactory position of the hardware and reduction of the fracture. Deep tissues were closed with 0 Vicryl as were subcutaneous tissues. The skin was closed with skin pito. Sterile dressings were applied. The patient was extubated and taken to recovery room in stable condition.
--- NOTE | 2020-05-05 20:22 | XR_ITS ---
WS: [id number] Exam: XR hip RT 2-3V wo/w pel* [id number] Date/Time of Exam: 05/05/2020 8:22 PM Reason For Exam: RT. HIP PAIN Intraoperative C-arm images in the AP and lateral projection are submitted for evaluation. Previously noted intertrochanteric fracture of the right hip has been stabilized with a long intramed ullary checo and femoral neck screw in excellent position for healing. Postoperative changes in the adj acent soft tissues. XR/XR hip RT 2-3V wo/w pel* [id number] IMPRESSION: 1. Internal orthopedic fixation involving an intertrochanteric fracture of the right hip in excellent position for healing.
--- NOTE | 2020-05-05 20:26 | P.ANESPOST_ITS ---
Inpatient post-anesthesia follow up: Airway intact: Yes Vital signs: Temperature 99.7 F Pulse Rate [Left] 71 Pulse Rate 90 Respiratory Rate 14 Blood Pressure [Le ft Arm] 171/81 Blood Pressure 124/83 Pulse Oximetry 94 Oxygen Delivery Me thod Simple Mask Oxygen Flow Rate 8 Fraction of Inspir ed Oxygen Hydration adequate: Yes Nausea and vomiting: No Pain level: 2 William tional Comments: Sedate
[2020-05-05 22:28] LABS: Glucose Point of Care 125 mg/dL (70-110)
[2020-05-05] MEDS: sodium chloride 0.9% 1,000 ML 100 ML IV (22:28)
[2020-05-05] MEDS: chlorhexidine gluconate 0.12% Btl 473 mL 30 ML MUCOUS MEM (22:29)
[2020-05-06] VITALS (13 sets, daily range): BP systolic 125–175; BP diastolic 68–110; PULSE 67–94; RESP 17–22; TEMP 37.2–37.7; O2SAT 91–95
[2020-05-06] MEDS: HYDROmorphone 1 mg/mL INJ 1 mL 0.5 MG IVP (00:30)
[2020-05-06] MEDS: morphine 4 mg/mL SDV 1 mL 2 MG IVP (02:07)
[2020-05-06] MEDS: ipratropium-albuterol 3 mL Neb INHALATION ×4 (02:34→20:51)
[2020-05-06 02:40] LABS: Basophils % 0.2 %; Eosinophils % 0.1 %; Hematocrit 33.8 % (37.0-47.0); Hemoglobin 10.8 g/dL (11.5-15.3); Lymphocytes # 1.4 10^3/uL (0.8-4.8); Lymphocytes % 8.5 %; Mean Corpuscular Hemoglobin 30.3 pg (28.0-34.0); Mean Corpuscular Volume 94.9 fL (81-99); Mean Platelet Volume 10.3 fL (7.4-10.4); Monocytes # 1.1 10^3/uL (0.2-0.9); Monocytes % 6.9 %; Neutrophils # 13.77 10^3/uL (1.8-7.7); Neutrophils % 83.8 %; Nucleated Red Blood Cells % 0 %; Platelet Count 367 10^3/cmm (130-400); Red Blood Count 3.56 10^6/uL (4.1-5.3); Red Cell Distribution Width 13.5 % (12.1-15.1); White Blood Count 16.4 10^3/uL (4.0-10.0)
[2020-05-06 03:00] LABS: Alanine Aminotransferase 16 U/L (0-33); Albumin Level 3.4 g/dL (3.5-5.2); Alkaline Phosphatase 73 IU/L (35-105); Anion Gap 15.3 (5-19); Aspartate Amino Transferase 28 U/L (0-32); Blood Urea Nitrogen 20 mg/dL (8-23); Calcium 8.5 mg/dL (8.5-10.5); Carbon Dioxide 22 mmol/L (22-29); Chloride 107 mmol/L (98-107); Creatinine Clr Calc Pharmacy 53.6728; Globulin 2.9 g/dL (1.3-4.6); Glucose 131 mg/dL (65-115); Osmolality Calculated 294 mOsm/kg (285-295); Potassium 4.3 mmol/L (3.5-5.1); Sodium 140 mmol/L (136-145); Total Bilirubin 0.3 mg/dL (0.15-1.2); Total Protein 6.3 g/dL (6.6-8.7)
[2020-05-06] MEDS: piperacillin-tazobactam 3.375 GM in sodium chloride 0.9% (plus) 50 ML IV ×3 (03:38→21:02)
--- NOTE | 2020-05-06 04:33 | PC.NURSE ---
Shift Summary Patient c/o pain throughout shift. Dilaudid and morphine given per orders. Abduction pillow remained in place. At one point, patient awoke and pulled off her lower dressing, stated that it was pulling. Replaced dressing with what was in place, xeroform, 4x4 and biocclusive. Patient encouraged not to pick and pull at dressing to prevent infection to surgical incision.
[2020-05-06] MEDS: HYDROcodone-acetaminophen 5-325 mg Tablet 1 TAB PO ×4 (06:23→21:01)
[2020-05-06] MEDS: sodium chloride 0.9% 1,000 ML 100 ML IV (06:24)
[2020-05-06 06:25] LABS: Glucose Point of Care 114 mg/dL (70-110)
[2020-05-06] MEDS: cholecalciferol (vitamin D3) 1,000 unit Tablet 1000 UNIT PO (08:24)
[2020-05-06] MEDS: atorvastatin 40 mg Tablet 80 MG PO (08:25)
[2020-05-06] MEDS: sennosides-docusate Tablet 2 TAB PO ×2 (08:26→17:35)
[2020-05-06] MEDS: amlodipine 10 mg Tablet PO (08:26)
[2020-05-06] MEDS: venlafaxine ER (24HR) 75 mg Capsule PO (08:26)
[2020-05-06] MEDS: clopidogrel 75 mg Tablet PO (08:26)
[2020-05-06] MEDS: fluticasone nasal spray 16gm Btl 1 SPRAY INTRANASAL ×2 (08:26→17:35)
[2020-05-06] MEDS: pantoprazole DR 40 mg Tablet PO (08:26)
[2020-05-06] MEDS: ascorbic acid 500 mg Tablet PO (08:26)
[2020-05-06] MEDS: chlorhexidine gluconate 0.12% Btl 473 mL 30 ML MUCOUS MEM ×4 (08:27→21:01)
--- NOTE | 2020-05-06 09:40 | PC.CHAP ---
Pastoral Care Encounter/Spiritual Assessment Type of Contact [] Declined feather edger visit [] Patient/Family/Request visit [] Outpatient visit [] Follow-up visit [] Physician referral [] Code/Alert [x] Routine visit [] Staff referral [] Actively dying [] Patient sleeping [] Family support [] [] Out of room [] Palliative care [] [] Receiving care in room [] Pre-surgical visit [] Trauma [] Long length of stay [] ICU visit [] Other: Relational/Emotional Strength [x]x Patient feels connected with others/family/visitors/staff [] Distress [] Loneliness/isolation [] Abandonment Spirituality of Patient x[x] Person of Katerina [] Attends Hindu of their Katerina [x] Believes in Prayer [] Reads Bible or Jain materials [] There are Spiritual issues to be addressed Ammonia Refrigeration Technician Interventions [x] Prayer [] Active listening [] Non-anxious presence [] Spiritual/emotional support [] Crisis/trauma care [] Spiritual counseling [] Bereavement support [] Provided bereavement packet [x] Provided Bible/devotional materials [] Provided toy/stuffed animal, coloring book to patient or family member [] Provided Communion [] Anointing/[place] [] Salvation [x] Completed spiritual assessment [] Other: Impact on Illness or Injury [] Angry [] Fearful [] Anxious [] Often cries [] Exhaustion [] Unable to work [] Unable to attend islam [] Unable to walk/stand [] Unable to read [] Unable to drive [] Unable to eat/drink [] Unable to sleep [] Unable to be with family [] Patient intubated [] Other: Summary patient feeling much better little pain Time spent with patient 15 min
--- NOTE | 2020-05-06 12:47 | P.PN_ITS ---
Subjective Subjective: Interval history: Pain well controlled. Slow with therapy this morning. Vitals/I&O/Wt Last Vital Signs Temp 99.2 F 05/06/20 07:39 Pulse 80 05/06/20 08:19 Resp 18 05/06/20 08:19 BP 153/68 05/06/20 07:39 Pulse Ox 91 05/06/20 08:19 05/05/20 05/06/20 05/06/20 22:59 06:59 14:59 Intake Total 1220 / 1320 843.333 / 2163.333 120 / 120 Output Total 40 / 40 450 / 490 Balance 1180 / 1280 393.333 / 1673.333 120 / 120 Weight last 48 hrs Weight 180 lb Physical Exam Narrative: EXAM NARRATIVE: Right hip incisions clean. Minimal swelling right thigh. Urinary Catheter Management^: Klein Latex: Cath Placed During This Visit: yes, but has since been removed by the nurse Reason for Continuing Indwelling Catheter: Decision to DC Catheter Urinary Catheter Date of Insertion: 05/05/20 Urinary Catheter Time of Insertion: 01:30 Date Urinary Catheter Removed: 05/06/20 Time Urinary Catheter Discontinued: 06:15 Data : 05/06/20 01:50 05/06/20 01:50 Micro: Microbiology 05/05/20 12:55 Blood Culture - Preliminary Blood SPECIMEN COLLECTED 05/05/20 12:55 Blood Culture - Preliminary Blood SPECIMEN COLLECTED A&P Assessment and plan (1) Intertrochanteric fracture of right hip: Status: Acute (2) Postoperative state: Continue with physical therapy. Patient without much support at home and will need custodial. Status: Acute Attestations Medical Necessity Statement*: Needs continued therapy and likely skilled placement. Coding Level of Care Code Acute Roofing Foreman for Colton Lee Diagnoses Intertrochanteric fracture of right hip S72.141A Postoperative state Z98.890
[2020-05-06 14:15] LABS: Bilirubin Urine Neg (Negative); Blood Urine Neg (Negative); Glucose Urine UA Norm (Normal); Ketones Urine Negative (Negative); Leukocyte Esterase Urine Negative (Negative); Nitrate Urine Negative (Negative); Protein Urine Neg (Negative); Specific Gravity, Urine 1.015 (1.005-1.030); Urine Appearance Clear (CLEAR); Urine Color Yellow (Yellow); Urobilinogen Urine Norm (Negative); pH Urine 5 (5-7)
[2020-05-06 14:17] LABS: Add Urine Culture? No; Bacteria Urine 1+ /hpf; Squamous Epithelial Cell Urine 15-25 /hpf (0-5); WBC Urine 0-4 /hpf (0-5)
--- NOTE | 2020-05-06 15:17 | PM.PN ---
Subjective Subjective: Interval history: No acute events overnight. Denies any nausea vomiting vomiting, headache, dizziness. On examination states pain is a lot better. Worked appropriate in physical therapy today and sat in the chair as well. Diet is appropriate. Vitals/I&O/Wt Last Vital Signs Temp 99.2 F 05/06/20 07:39 Pulse 83 05/06/20 14:05 Resp 18 05/06/20 14:05 BP 153/68 05/06/20 07:39 Pulse Ox 92 05/06/20 14:05 05/06/20 05/06/20 05/06/20 06:59 14:59 22:59 Intake Total 943.333 / 2263.333 170 / 170 Output Total 450 / 490 400 / 400 Balance 493.333 / 1773.333 -230 / -230 Weight last 48 hrs Weight 81.647 kg Physical Exam Narrative: EXAM NARRATIVE: Elderly female Who appears to be in distress complaining of 10/10 right hip pain S1, S2 sinus rhythm no signs of heart failure No neurological deficit EOMI, PERRLA Awake alert oriented x3 Bilateral breath sounds without adventitious rhonchi or crackles Abdomen soft nontender bowel sound present Extremities have bilateral nonpitting edema, pulses bilaterally palpable with clear surgical clean bandage. Urinary Catheter Management^: Klein Latex: Cath Placed During This Visit: yes, but has since been removed by the nurse Reason for Continuing Indwelling Catheter: Decision to DC Catheter Urinary Catheter Date of Insertion: 05/05/20 Urinary Catheter Time of Insertion: 01:30 Date Urinary Catheter Removed: 05/06/20 Time Urinary Catheter Discontinued: 06:15 Data : 05/06/20 01:50 05/06/20 01:50 Micro: Microbiology 05/05/20 12:55 Blood Culture - Preliminary Blood NEGATIVE TO DATE 05/05/20 12:55 Blood Culture - Preliminary Blood NEGATIVE TO DATE A&P Assessment and plan (1) Intertrochanteric fracture of right hip: Status: Acute (2) Fall: Status: Acute Qualifiers: Encounter type: initial encounter Qualified Code(s): W19.XXXA - Unspecified fall, initial encounter (3) Leukocytosis: Status: Acute (4) COPD (chronic obstructive pulmonary disease): Status: Acute (5) Essential hypertension: Status: Chronic (6) MARY BETH (acute kidney injury): Status: Acute Additional A&P Information Right intertrochanteric hip fracture: Postop day 1 Oral [place] 1 tab every 4 hours. Continue physical therapy. Start on Lovenox 40 mg daily. Will continue to monitor hemoglobin postoperatively. Patient is taking oral diet well so we will stop IV fluids. Leukocytosis: Most likely secondary to stress response but cannot rule out possible sepsis. Procalcitonin negative, MRSA swab, blood cultures preliminary negative. Urinalysis negative for any signs of infection at present. Continue Zosyn for 24 more hours and if patient remains afebrile and leukocytosis improving will discontinue. MARY BETH: Resolved. Most likely secondary dehydration. Continue to monitor renal functions daily. Medical reconciliation done for nephrotoxic drugs. COPD: Start patient on DuoNebs every 6 hours. Oxygen supplementation keeping saturation over 92%. Hypertension: Goal blood pressure less than 140/90 mmHg Restart home medications. Continue other chronic home medications. Iron panel associated with mild iron deficiency anemia. Will start on oral iron supplementation. DVT: Lovenox 40 mg daily. N.p.o. Full code Discharge planning: Most likely patient will be needing SNF as an outpatient for rehabitation of postoperative care. Coordination working on the same. Awaiting prior authorization. Attestations Medical Necessity Statement*: Requires further hospitalization for postoperative care of right intertrochanteric hip fracture. Time Spent in Patient Care: Greater than 35 minutes (>than 50% of time spent in counselling and/or direct pt care on unit). Coding Level of Care Code Acute Credit Risk Modeler for Colton Lee Diagnoses Intertrochanteric fracture of right hip S72.141A Fall W19.XXXA Encounter type: initial encounter Leukocytosis D72.829 COPD (chronic obstructive pulmonary disease) J44.9 Essential hypertension I10 MARY BETH (acute kidney injury) N17.9
[2020-05-06] MEDS: enoxaparin 40 mg/0.4 mL Syringe SUBCUT (15:50)
[2020-05-06] MEDS: ferrous gluconate 324 mg Tablet PO (17:35)
--- NOTE | 2020-05-06 18:27 | PC.NURSE ---
SHIFT SUMMARY PATIENT HAS DONE WELL TODAY. PAIN CONTROLLED WITH ORAL PAIN MEDICATIONS. GOOD URINE OUTPUT AFTER MACE CATHETER REMOVAL. LOWER DRESSING CAME OFF. THIS NURSE APPLIED SMALL COVADERM OVER SURGICAL INCISION. PATIENT REQUIRES LOTS OF ASSISTANCE WITH TRANSFERRING. CONTINUE TO MONITOR.
[2020-05-06 21:18] LABS: Glucose Point of Care 131 mg/dL (70-110)
[2020-05-07] VITALS (10 sets, daily range): BP systolic 138; BP diastolic 65; PULSE 70–91; RESP 16–18; TEMP 36.7; O2SAT 85–94
[2020-05-07 03:04] LABS: Basophils % 0.3 %; Eosinophils # 0.1 10^3/uL (0.0-0.8); Eosinophils % 1.1 %; Hematocrit 30.5 % (37.0-47.0); Hemoglobin 9.8 g/dL (11.5-15.3); Lymphocytes % 16.8 %; Mean Corpuscular HGB Conc 32.1 g/dL (30.0-36.0); Mean Corpuscular Hemoglobin 30.1 pg (28.0-34.0); Mean Corpuscular Volume 93.6 fL (81-99); Mean Platelet Volume 10.1 fL (7.4-10.4); Monocytes % 8.2 %; Neutrophils # 8.51 10^3/uL (1.8-7.7); Neutrophils % 73.2 %; Nucleated Red Blood Cells % 0 %; Platelet Count 292 10^3/cmm (130-400); Red Blood Count 3.26 10^6/uL (4.1-5.3); Red Cell Distribution Width 13.5 % (12.1-15.1); White Blood Count 11.6 10^3/uL (4.0-10.0)
[2020-05-07] MEDS: ipratropium-albuterol 3 mL Neb INHALATION ×2 (03:09→08:30)
[2020-05-07 03:30] LABS: Alanine Aminotransferase 13 U/L (0-33); Albumin Level 3.2 g/dL (3.5-5.2); Alkaline Phosphatase 68 IU/L (35-105); Anion Gap 14.4 (5-19); Aspartate Amino Transferase 28 U/L (0-32); Blood Urea Nitrogen 15 mg/dL (8-23); Calcium 9.1 mg/dL (8.5-10.5); Carbon Dioxide 22 mmol/L (22-29); Chloride 107 mmol/L (98-107); Creatinine Clr Calc Pharmacy 67.0909; Globulin 2.9 g/dL (1.3-4.6); Glucose 133 mg/dL (65-115); Osmolality Calculated 293 mOsm/kg (285-295); Potassium 3.4 mmol/L (3.5-5.1); Sodium 140 mmol/L (136-145); Total Bilirubin 0.2 mg/dL (0.15-1.2); Total Protein 6.1 g/dL (6.6-8.7)
[2020-05-07] MEDS: morphine 4 mg/mL SDV 1 mL 2 MG IVP (03:35)
[2020-05-07] MEDS: piperacillin-tazobactam 3.375 GM in sodium chloride 0.9% (plus) 50 ML IV ×3 (04:53→20:44)
[2020-05-07] MEDS: HYDROcodone-acetaminophen 5-325 mg Tablet 1 TAB PO ×3 (06:09→17:39)
--- NOTE | 2020-05-07 08:02 | P.PN_ITS ---
Subjective Subjective: Interval history: States pain is controlled with pain medications. Slow progress with therapy. Vitals/I&O/Wt Last Vital Signs Temp 98.9 F 05/06/20 15:37 Pulse 91 05/07/20 05:30 Resp 16 05/07/20 03:35 BP 125/79 05/06/20 15:37 Pulse Ox 94 05/07/20 03:09 05/06/20 05/07/20 05/07/20 22:59 06:59 14:59 Intake Total 290 / 460 50 / 510 Output Total 700 / 1100 400 / 1500 Balance -410 / -640 -350 / -990 Physical Exam Narrative: EXAM NARRATIVE: Right hip dressing clean and dry. Larger leg but minimal swelling thigh. Urinary Catheter Management^: Klein Latex: Cath Placed During This Visit: yes, but has since been removed by the nurse Reason for Continuing Indwelling Catheter: Decision to DC Catheter Urinary Catheter Date of Insertion: 05/05/20 Urinary Catheter Time of Insertion: 01:30 Date Urinary Catheter Removed: 05/06/20 Time Urinary Catheter Discontinued: 06:15 Data : 05/07/20 02:46 05/07/20 02:46 Micro: Microbiology 05/05/20 12:55 Blood Culture - Preliminary Blood NEGATIVE TO DATE 05/05/20 12:55 Blood Culture - Preliminary Blood NEGATIVE TO DATE A&P Assessment and plan (1) Intertrochanteric fracture of right hip: Status: Acute (2) Postoperative state: Patient slow to progress with therapy. Will need fci. Status: Acute Attestations Medical Necessity Statement*: Awaiting SNF placement. Okay for discharge per Ortho Coding Level of Care Code Acute Radiology Supervisor for Colton Lee Diagnoses Intertrochanteric fracture of right hip S72.141A Postoperative state Z98.890
[2020-05-07] MEDS: amlodipine 10 mg Tablet PO (08:25)
[2020-05-07] MEDS: tizanidine 4 mg Tablet PO (08:25)
[2020-05-07] MEDS: ferrous gluconate 324 mg Tablet PO ×2 (08:25→17:40)
[2020-05-07] MEDS: cholecalciferol (vitamin D3) 1,000 unit Tablet 1000 UNIT PO (08:25)
[2020-05-07] MEDS: sennosides-docusate Tablet 2 TAB PO ×2 (08:25→17:39)
[2020-05-07] MEDS: clopidogrel 75 mg Tablet PO (08:25)
[2020-05-07] MEDS: fluticasone nasal spray 16gm Btl 1 SPRAY INTRANASAL ×2 (08:25→17:39)
[2020-05-07] MEDS: atorvastatin 40 mg Tablet 80 MG PO (08:25)
[2020-05-07] MEDS: pantoprazole DR 40 mg Tablet PO (08:26)
[2020-05-07] MEDS: chlorhexidine gluconate 0.12% Btl 473 mL 30 ML MUCOUS MEM ×4 (08:32→20:44)
[2020-05-07] MEDS: venlafaxine ER (24HR) 75 mg Capsule PO ×2 (08:33→08:38)
[2020-05-07] MEDS: ondansetron 2 mg/ML SDV 2 mL 4 MG IVP ×2 (09:51→17:44)
--- NOTE | 2020-05-07 10:11 | P.PN_ITS ---
Subjective Subjective: Interval history: Documents overnight. Postoperative day 2. Denies any nausea, vomiting, headache. States had a restless night because was being woken up again again with nursing staff. Today morning on examination sitting up in chair. She worked appropriately with physical therapy. As per physical therapy she has been doing better since yesterday. Complaining of mild nausea because of pain. States she is having muscle spasms. Appetite is normal. Has remained afebrile and hemodynamically stable in last 24 hours. Saturating well on room air. Vitals/I&O/Wt Last Vital Signs Temp 98.9 F 05/06/20 15:37 Pulse 91 05/07/20 08:36 Resp 16 05/07/20 08:34 BP 125/79 05/06/20 15:37 Pulse Ox 94 05/07/20 08:34 05/06/20 05/07/20 05/07/20 22:59 06:59 14:59 Intake Total 290 / 460 50 / 510 530 / 530 Output Total 700 / 1100 400 / 1500 Balance -410 / -640 -350 / -990 530 / 530 Physical Exam Narrative: EXAM NARRATIVE: Elderly female Who appears to be in distress complaining of 10/10 right hip pain S1, S2 sinus rhythm no signs of heart failure No neurological deficit EOMI, PERRLA Awake alert oriented x3 Bilateral breath sounds without adventitious rhonchi or crackles Abdomen soft nontender bowel sound present Extremities have bilateral nonpitting edema, pulses bilaterally palpable with clear surgical clean bandage. Urinary Catheter Management^: Klein Latex: Cath Placed During This Visit: yes, but has since been removed by the nurse Reason for Continuing Indwelling Catheter: Decision to DC Catheter Urinary Catheter Date of Insertion: 05/05/20 Urinary Catheter Time of Insertion: 01:30 Date Urinary Catheter Removed: 05/06/20 Time Urinary Catheter Discontinued: 06:15 Data : 05/07/20 02:46 05/07/20 02:46 Micro: Microbiology 05/05/20 12:55 Blood Culture - Preliminary Blood NEGATIVE TO DATE 05/05/20 12:55 Blood Culture - Preliminary Blood NEGATIVE TO DATE A&P Assessment and plan (1) Intertrochanteric fracture of right hip: Status: Acute (2) Fall: Status: Acute Qualifiers: Encounter type: initial encounter Qualified Code(s): W19.XXXA - Unspeci fied fall, initial encounter (3) Leukocytosis: Status: Acute (4) COPD (chronic obstructive pulmonary disease): Status: Acute (5) Essential hypertension: Status: Chronic (6) MARY BETH (acute kidney injury): Status: Acute Additional A&P Information Right intertrochanteric hip fracture: Postop day2. Pain well controlled. Continue with oral [place] 1 tab every 4 hours. Continue with tizanidine as needed at home dose for muscle spasms. Continue physical therapy. Continue with Lovenox 40 mg daily. Will continue to monitor hemoglobin postoperatively. Hemoglobin 9.8 today most likely stabilizing postoperatively. Will repeat hemoglobin in the evening to confirm. Leukocytosis: Resolving. Has remained afebrile. Most likely secondary to stress response but cannot rule out possible sepsis. Procalcitonin negative, MRSA swab, blood cultures preliminary negative. Urinalysis negative for any signs of infection at present. Continue Zosyn for 24 more hours and if patient remains afebrile and rufina kocytosis improving will discontinue. MARY BETH: Resolved. Most likely secondary dehydration. Continue to monitor renal functions daily. Medical reconciliation done for nephrotoxic drugs. COPD: Continue with DuoNebs as needed. Oxygen supplementation keeping saturation over 92%. Hypertension: Goal blood pressure less than 140/90 mmHg Continue with home medications. Continue other chronic home medications. Anemia: Labs continue consistent with iron deficiency anemia. Continue with oral supplementation. Repeat hemoglobin in evening discussed. No active signs of bleeding. For now continue with Lovenox for DVT prophylaxis. DVT: Lovenox 40 mg daily. Cardiac diet. Full code Discharge planning: Plan to discharge to SNF for further rehabitation postoperative care. Awaiting prior authorization. Attestations Medical Necessity Statement*: Requires further hospitalization for postoperative care for right intertrochanteric hip fracture while safe discharge planning is sought. Time Spent in Patient Care: Greater than 35 minutes (>than 50% of time spent in counselling and/or direct pt care on unit) . Coding Level of Care Code Acute Pharmaceutical Sales Specialist for Colton Lee Diagnoses Intertrochanteric fracture of right hip S72.141A Fall W19.XXXA Encounter type: initial encounter Leukocytosis D72.829 COPD (chronic obstructive pulmonary disease) J44.9 Essential hypertension I10 MARY BETH (acute kidney injury) N17.9
[2020-05-07] MEDS: ascorbic acid 500 mg Tablet PO (12:02)
[2020-05-07] MEDS: enoxaparin 40 mg/0.4 mL Syringe SUBCUT (14:47)
[2020-05-07 19:44] LABS: Hematocrit 29.5 % (37.0-47.0); Hemoglobin 9.5 g/dL (11.5-15.3)
[2020-05-08] VITALS (9 sets, daily range): BP systolic 129–165; BP diastolic 70–85; PULSE 67–87; RESP 16–20; TEMP 36.6–36.9; O2SAT 93–98
[2020-05-08] MEDS: tizanidine 4 mg Tablet PO (00:26)
[2020-05-08] MEDS: HYDROcodone-acetaminophen 5-325 mg Tablet 1 TAB PO ×3 (00:26→13:16)
[2020-05-08 02:38] LABS: Basophils % 0.3 %; Eosinophils # 0.2 10^3/uL (0.0-0.8); Eosinophils % 2.3 %; Hematocrit 28.3 % (37.0-47.0); Hemoglobin 8.9 g/dL (11.5-15.3); Lymphocytes # 1.8 10^3/uL (0.8-4.8); Lymphocytes % 17.1 %; Mean Corpuscular HGB Conc 31.4 g/dL (30.0-36.0); Mean Corpuscular Hemoglobin 29.7 pg (28.0-34.0); Mean Corpuscular Volume 94.3 fL (81-99); Mean Platelet Volume 10.4 fL (7.4-10.4); Monocytes # 0.9 10^3/uL (0.2-0.9); Monocytes % 8.3 %; Neutrophils # 7.36 10^3/uL (1.8-7.7); Neutrophils % 71.5 %; Nucleated Red Blood Cells % 0 %; Platelet Count 272 10^3/cmm (130-400); Red Cell Distribution Width 13.6 % (12.1-15.1); White Blood Count 10.3 10^3/uL (4.0-10.0)
[2020-05-08 03:07] LABS: Alanine Aminotransferase 11 U/L (0-33); Albumin Level 2.9 g/dL (3.5-5.2); Alkaline Phosphatase 67 IU/L (35-105); Anion Gap 12.5 (5-19); Aspartate Amino Transferase 21 U/L (0-32); Blood Urea Nitrogen 19 mg/dL (8-23); Carbon Dioxide 23 mmol/L (22-29); Chloride 107 mmol/L (98-107); Glucose 107 mg/dL (65-115); Osmolality Calculated 291 mOsm/kg (285-295); Potassium 3.5 mmol/L (3.5-5.1); Sodium 139 mmol/L (136-145); Total Bilirubin 0.3 mg/dL (0.15-1.2); Total Protein 5.9 g/dL (6.6-8.7)
[2020-05-08] MEDS: fluticasone nasal spray 16gm Btl 1 SPRAY INTRANASAL ×2 (08:13→17:16)
[2020-05-08] MEDS: piperacillin-tazobactam 3.375 GM in sodium chloride 0.9% (plus) 50 ML IV (08:14)
[2020-05-08] MEDS: venlafaxine ER (24HR) 75 mg Capsule PO (08:14)
[2020-05-08] MEDS: cholecalciferol (vitamin D3) 1,000 unit Tablet 1000 UNIT PO (08:14)
[2020-05-08] MEDS: pantoprazole DR 40 mg Tablet PO (08:15)
[2020-05-08] MEDS: ferrous gluconate 324 mg Tablet PO ×2 (08:15→17:15)
[2020-05-08] MEDS: clopidogrel 75 mg Tablet PO (08:15)
[2020-05-08] MEDS: atorvastatin 40 mg Tablet 80 MG PO (08:15)
[2020-05-08] MEDS: amlodipine 10 mg Tablet PO (08:15)
[2020-05-08] MEDS: ascorbic acid 500 mg Tablet PO (08:15)
[2020-05-08] MEDS: sennosides-docusate Tablet 2 TAB PO ×2 (08:15→17:15)
[2020-05-08] MEDS: chlorhexidine gluconate 0.12% Btl 473 mL 30 ML MUCOUS MEM ×3 (08:16→17:15)
--- NOTE | 2020-05-08 10:15 | PC.SOCIAL ---
IMM Update Pg. 2 of IMM updated and reviewed with patient who verbalized understanding. Copy provided.
--- NOTE | 2020-05-08 12:02 | PM.DCS ---
Discharge Providers Date of Admission: 05/05/20 01:23 Date of Discharge: May 08, 2020 Attending Provider at Admission: Roel Del Rio MD Attending Provider at Discharge: Michael Deleon MD Diagnoses at Discharge Discharge Diagnosis (1) Intertrochanteric fracture of right hip: Status: Acute (2) Fall: Status: Acute Qualifiers: Encounter type: initial encounter Qualified Code(s): W19.XXXA - Unspecified fall, initial encounter (3) Leukocytosis: Status: Acute (4) COPD (chronic obstructive pulmonary disease): Status: Acute (5) Essential hypertension: Status: Chronic (6) MARY BETH (acute kidney injury): Status: Acute Reason for Visit Reason for Visit: FALL Hospital Course Hospital Course Bryce Schmidt is a 74 year old female who carries history of TIA which was 2 years ago for which she takes aspirin & atorvastatin, presented today after sustaining a fall at home. Patient is stating that today she fell on her patio after twisting her ankle. She was in excruciating pain, was not able to bear any weight hence EMS was called. She did not endorse any chest pain shortness of breath seizure-like activity or syncopal event. No recent TIA or neurological changes. Patient came to the hospital for management of intertrochanteric fracture. Orthopedics was consulted. On admission patient was found to have leukocytosis for which she was started on broad-spectrum antibiotics at first and sepsis work-up was done which came out negative. Patient underwent ORIF on May 05 which she tolerated well. Postoperative time was noncomplicated. She was appropriately with physical therapy. Because of the need of physical therapy and rehabitation patient was advised to be discharged to SNF which she agreed. Patient is been discharged hemodynamically stable condition on oral Augmentin levofloxacin for 3 more days to finish a course of 5 days to SNF for further rehabitation. Physical Exam Narrative: EXAM NARRATIVE: Elderly female Who appears to be in distress complaining of 10/10 right hip pain S1, S2 sinus rhythm no signs of heart failure No neurological deficit EOMI, PERRLA Awake alert oriented x3 Bilateral breath sounds without adventitious rhonchi or crackles Abdomen soft nontender bowel sound present Extremities have bilateral nonpitting edema, pulses bilaterally palpable with clear surgical clean bandage. Urinary Catheter Management^: Klein Latex: Cath Placed During This Visit: yes, but has since been removed by the nurse Reason for Continuing Indwelling Catheter: Decision to DC Catheter Urinary Catheter Date of Insertion: 05/05/20 Urinary Catheter Time of Insertion: 01:30 Date Urinary Catheter Removed: 05/06/20 Time Urinary Catheter Discontinued: 06:15 Discharge Data Data Completed and Pending: Completed Studies During Hospitalization Category Date Time Status XR chest 1V mer[place] ble [id number] Stat Exams 05/04/20 22:42 Completed XR hip RT 2-3V wo /w pel* [id number] Rout ine Exams 05/05/20 20:22 Completed XR hip RT 2-3V wo /w pel* [id number] Stat Exams 05/04/20 22:42 Completed XR knee RT 3V* 73 [id number] Stat Exams 05/04/20 22:42 Completed Pending at discharge Category Date Time Status Blood Culture Sta t Lab 05/05/20 12:55 Results Miscellaneous Josephine t Routine Lab 05/08/20 03:45 Received Labs from last 24 hours 05/08/20 05/08/20 05/08/20 03:45 01:48 01:48 WBC 10.3 H RBC 3.00 L Hgb 8.9 L Hct 28.3 L MCV 94.3 MCH 29.7 MCHC 31.4 RDW 13.6 Plt Count 272 MPV 10.4 Neut % (Auto) 71.5 Lymph % (Auto) 17.1 [place] % (Auto) 8.3 Eos % (Auto) 2.3 Baso % (Auto) 0.3 Neut # (Auto) 7.36 Lymph # (Auto) 1.8 [place] # (Auto) 0.9 Eos # (Auto) 0.2 Baso # (Auto) 0.0 Nucleated RBC % (a uto) 0 Nucleated RBCs # 0.0 Sodium 139 Potassium 3.5 Chloride 107 Carbon Dioxide 23 Anion Gap 12.5 BUN 19 Creatinine 0.9 GFR Calculation Not Reportable Glucose 107 Calculated Osmolal ity 291 Calcium 9.0 Total Bilirubin 0.3 AST 21 ALT 11 Alkaline Phosphata se 67 Total Protein 5.9 L Albumin 2.9 L Globulin 3.0 Misc Test Referenc e Pending 05/07/20 19:21 WBC RBC Hgb 9.5 L Hct 29.5 L MCV MCH MCHC RDW Plt Count MPV Neut % (Auto) Lymph % (Auto) [place] % (Auto) Eos % (Auto) Baso % (Auto) Neut # (Auto) Lymph # (Auto) [place] # (Auto) Eos # (Auto) Baso # (Auto) Nucleated RBC % (a uto) Nucleated RBCs # Sodium Potassium Chloride Carbon Dioxide Anion Gap BUN Creatinine GFR Calculation Glucose Calculated Osmolal ity Calcium Total Bilirubin AST ALT Alkaline Phosphata se Total Protein Albumin Globulin Misc Test Referenc e Vitals: Last Vital Signs Temp 98.1 F 05/08/20 11:45 Pulse 70 05/08/20 11:45 Resp 18 05/08/20 11:45 BP 131/70 05/08/20 11:45 Pulse Ox 93 05/08/20 11:45 Discharge Plan Discharge Patient Disposition: Xfer SNF Condition: Stable Prescriptions: New hydrocodone-acetaminophen 5-325 mg Tablet 1 tab PO Q4H PRN (Reason: Moderate Pain) Qty: 30 RF: 0 enoxaparin 40 mg/0.4 mL syringe 40 mg SUBCUT DAILY Qty: 4 RF: 0 Augmentin 875-125 mg tablet 1 tab PO BID 3 Days Qty: 6 RF: 0 levofloxacin 500 mg tablet 500 mg PO DAILY 3 Days RF: 0 Continued cranberry extract 250 mg capsule 250 mg PO DAILY RF: 0 vitamin E 200 unit capsule 400 unit PO DAILY RF: 0 ascorbate calcium (vitamin C) 500 mg tablet 500 mg PO DAILY RF: 0 potassium 99 mg tablet 99 mg PO DAILY RF: 0 acetaminophen [Tylenol Extra Strength] 500 mg tablet 500 mg PO DAILY PRN (Reason: Pain) RF: 0 Anoro Ellipta 62.5-25 mcg/actuation blister with device 1 inh inhalation DAILY 30 Days Qty: 60 RF: 3 albuterol sulfate 90 mcg/actuation HFA aerosol inhaler 2 puff inhalation QID PRN (Reason: shortness of breath or wheezing) 30 Days Qty: 18 RF: 3 venlafaxine 75 mg capsule,extended release 24hr 75 mg PO DAILY Qty: 30 RF: 4 Bystolic 20 mg tablet 20 mg PO DAILY Qty: 30 RF: 2 Complete Multivitamin Tablet 1 tab PO DAILY 30 Days Qty: 30 RF: 11 fluticasone propionate [Flonase Allergy Relief] 50 mcg/actuation spray,suspension 1 spray INTRANASAL BID Qty: 15.8 RF: 5 atorvastatin 80 mg tablet 80 mg PO DAILY Qty: 30 RF: 2 amlodipine 10 mg tablet 10 mg PO DAILY Qty: 30 RF: 2 clopidogrel [Plavix] 75 mg tablet 75 mg PO DAILY Qty: 90 RF: 2 fenofibrate micronized 200 mg capsule 200 mg PO DAILY Qty: 30 RF: 5 esomeprazole magnesium [Nexium] 40 mg capsule,delayed release(DR/EC) 40 mg PO DAILY 30 Days Qty: 30 RF: 1 Vitamin D3 25 mcg (1,000 unit) Capsule 25 mcg PO DAILY RF: 0 Discontinued ibuprofen 200 mg capsule 600 mg PO Q6H PRN (Reason: Pain) RF: 0 Discharge Orders: Discharge Order (Routine); Ordered 05/08/20 Ordered By: Michael Deleon Referrals: Jose Rossi MD [Physician] - 07/30/20 10:30 am Siddhartha De La Fuente MD [Physician] - 7-10 days ([facility] will call you with an appointment to follow up with Dr. De La Fuente in 7-10 days. If you don't hear from them please call [phone].) Discharge Diet: Usual diet Discharge Activity: Resume usual activity and Increase activity as tolerated Activity Restrictions/Additional Instructions: Change dressing as needed for drainage May discontinue pito on 06/16/2020 Okay to sponge bathe and showers while pito in place, may bathe once pito discontinued Full weightbearing on operative hip Discharge Attestations Time Spent in Discharge Care*: greater than 30 min Specific Discharge Activities: educating patient, discussing with pcp/other providers, discussing with leather case finisher/social workers/dc planners, documenting/other paperwork and evaluating patient/reviewing data Status at Discharge: Cognitive status at discharge: cognitively intact, Behavioral status at discharge: cooperative, Functional status at discharge: uses cane/walker Overall status at discharge: patient is progressing back to baseline Quality Metrics Clinical Quality Measures During this hospital stay, did patient experience: None Coding Level of Care Code Acute Carpenters Helper for [facility] Diagnoses Intertrochanteric fracture of right hip S72.141A Fall W19.XXXA Encounter type: initial encounter Leukocytosis D72.829 COPD (chronic obstructive pulmonary disease) J44.9 Essential hypertension I10 MARY BETH (acute kidney injury) N17.9
--- NOTE | 2020-05-08 12:33 | PM.PN ---
Subjective Subjective: Interval history: Doing better. Less pain. better with therapy Vitals/I&O/Wt Last Vital Signs Temp 98.1 F 05/08/20 11:45 Pulse 70 05/08/20 11:45 Resp 18 05/08/20 11:45 BP 131/70 05/08/20 11:45 Pulse Ox 93 05/08/20 11:45 05/07/20 05/08/20 05/08/20 22:59 06:59 14:59 Intake Total 530 / 1540 450 / 1990 480 / 480 Output Total 350 / 350 Balance 530 / 1540 100 / 1640 480 / 480 Physical Exam Narrative: EXAM NARRATIVE: Right hip dressing clean and dry. Minimal swelling thigh but larger leg Urinary Catheter Management^: Klein Latex: Cath Placed During This Visit: yes, but has since been removed by the nurse Reason for Continuing Indwelling Catheter: Decision to DC Catheter Urinary Catheter Date of Insertion: 05/05/20 Urinary Catheter Time of Insertion: 01:30 Date Urinary Catheter Removed: 05/06/20 Time Urinary Catheter Discontinued: 06:15 Data : 05/08/20 01:48 05/08/20 01:48 A&P Assessment and plan (1) Intertrochanteric fracture of right hip: Status: Acute (2) Postoperative state: Awaiting SNF bed. Pain script on chart. FU plans done. Status: Acute Attestations Medical Necessity Statement*: OK for discharge per ortho Coding Level of Care Code Acute Cardiology Rn for Colton Lee Diagnoses Intertrochanteric fracture of right hip S72.141A Postoperative state Z98.890
--- NOTE | 2020-05-08 13:51 | PC.NURSE ---
Discharge summary Patient's IV was removed from left AC space. Tip of catheter intact and patient tolerated well. Report called to Dustin QUINONES at [facility]. coordinator of rehabilitation services to set up ride.
[2020-05-08] MEDS: acetaminophen 500 mg Tablet PO (15:07)
[2020-05-08] MEDS: enoxaparin 40 mg/0.4 mL Syringe SUBCUT (15:07)
== END 2020-05-08 18:28 | disposition skilled nursing facility (03) | DRG 481 ==
LOC: ER 23:42 → MEDSURG 05-05 00:16
PROVIDERS: Orthopaedic Surgery; Admitting Provider Internal Medicine; Emergency Provider Emergency Medicine; Visit Provider Student in an Organized Health Care Education/Training Program
PROC: 0QS606Z Reposition Right Upper Femur with Intramedullary Internal Fixation Device, Open Approach (ICD-10-PCS; CPT 27245; principal; 2020-05-05 15:00)
DX: S72.141A Displaced intertrochanteric fracture of right femur, initial encounter for closed fracture (principal); N17.9 Acute kidney failure, unspecified; W01.0XXA Fall on same level from slipping, tripping and stumbling without subsequent striking against object, initial encounter; Z86.73 Personal history of transient ischemic attack (TIA), and cerebral infarction without residual deficits; Z79.82 Long term (current) use of aspirin; F41.8 Other specified anxiety disorders; E78.5 Hyperlipidemia, unspecified; I10 Essential (primary) hypertension; M79.7 Fibromyalgia; K58.9 Irritable bowel syndrome, unspecified; E66.9 Obesity, unspecified; Z68.30 Body mass index [BMI] 30.0-30.9, adult; M81.0 Age-related osteoporosis without current pathological fracture; F17.210 Nicotine dependence, cigarettes, uncomplicated; J44.9 Chronic obstructive pulmonary disease, unspecified; E86.0 Dehydration; K21.9 Gastro-esophageal reflux disease without esophagitis; D50.9 Iron deficiency anemia, unspecified; Z79.51 Long term (current) use of inhaled steroids; Z79.02 Long term (current) use of antithrombotics/antiplatelets
CPT/HCPCS: 12345; 36415; 36416; 51702; 71045; 73502; 73562; 76000; 80048; 80053; 81001; 82962; 83540; 83550; 84145; 84443; 85014; 85018; 85025; 85610; 87040; 87426; 87641; 93005; 94640; 96372; 97116; 97161; 97167; 97530; 97535; 99282; C1713; J0131; J0690; J1170; J1650; J2250; J2270; J2405; J2543; J2704; J3010; J3490; J7030; J7799

== ENCOUNTER → 2020-06-10 14:46 | Outpatient (BNVA) | payer BC, MEDICAID, SELFPAY | PROVIDERS: PCP Family Medicine Adult Medicine; Visit Provider Orthopaedic Surgery | DX: S72.141D Displaced intertrochanteric fracture of right femur, subsequent encounter for closed fracture with routine healing (principal); Z98.890 Other specified postprocedural states; W01.0XXD Fall on same level from slipping, tripping and stumbling without subsequent striking against object, subsequent encounter | CPT/HCPCS: 73502 ==

== ENCOUNTER → 2020-11-13 14:45 | Outpatient (BNVA) | payer MEDICARE, MEDICAID, SELFPAY | PROVIDERS: PCP Family Medicine Adult Medicine; Visit Provider Family Medicine Adult Medicine | DX: R30.0 Dysuria (principal); R73.9 Hyperglycemia, unspecified; I10 Essential (primary) hypertension; K58.9 Irritable bowel syndrome, unspecified; E66.9 Obesity, unspecified; M81.0 Age-related osteoporosis without current pathological fracture; J44.9 Chronic obstructive pulmonary disease, unspecified; R94.4 Abnormal results of kidney function studies | CPT/HCPCS: 80053; 81000; 83036; 85025 ==

== ENCOUNTER → 2021-03-16 15:04 | Outpatient (BNVA) | payer MEDICARE, MEDICAID, SELFPAY | PROVIDERS: PCP Family Medicine Adult Medicine; Referring Provider Family Medicine Adult Medicine; Visit Provider Orthopaedic Surgery | DX: M25.561 Pain in right knee (principal); M17.11 Unilateral primary osteoarthritis, right knee | CPT/HCPCS: 73560; 73565 ==

== ENCOUNTER → 2021-05-05 15:31 | Outpatient (BNVA) | payer MEDICARE, MEDICAID, SELFPAY | PROVIDERS: PCP Family Medicine Adult Medicine; Visit Provider Family Medicine Adult Medicine | DX: N18.2 Chronic kidney disease, stage 2 (mild) (principal); E78.5 Hyperlipidemia, unspecified; I10 Essential (primary) hypertension | CPT/HCPCS: 80053; 80061; 83721; 85025 ==

== ENCOUNTER 2021-05-18 19:58 | Observation (INO) | payer MEDICARE, MEDICAID, SELFPAY ==
[2021-05-18 20:16] VITALS: BP 165/115; RESP 18; TEMP 36.7; O2SAT 93; BMI 29.9
--- NOTE | 2021-05-18 20:28 | CTR_ITS ---
PROCEDURE INFORMATION: Exam: CT Head Without Contrast Exam date and time: 05/18/2021 8:28 PM Age: 75 years old Clinical indication: Altered mental status/memory loss; Prior surgery; Surgery date: 6+ months; Surgery type: Craniotomy; Patient HX: C/O ams/forgetfullness TECHNIQUE: Imaging protocol: Computed tomography of the head without contrast. Radiation optimization: All CT scans at this facility use at least one of these dose optimization techniques: automated exposure control; mA and/or kV adjustment per patient size (includes targeted exams where dose is matched to clinical indication); or iterative reconstruction. COMPARISON: CR XR knees AP WB w RT lmt ORTH 03/16/2021 3:13 PM RADIATION DOSE METRICS: Total DLP (mGy-cm): 741.67 FINDINGS: Brain: No hemorrhage. Moderate diffuse cerebral atrophy and sequela of chronic small vessel ischemic disease. Old lacunar infarcts within the basal ganglia and ninfa. Coil embolization material within the left supraclinoid region. No mass effect. Cerebral ventricles: No ventriculomegaly. Paranasal sinuses: Visualized sinuses are unremarkable. No fluid levels. Mastoid air cells: Visualized mastoid air cells are well aerated. Bones/joints: Small metallic plates noted within the left frontal calvarium. No acute fracture. Soft tissues: Unremarkable. CT/CT head wo con* [id number] IMPRESSION: 1. No acute intracranial abnormality. 2. Moderate diffuse cerebral atrophy and sequela of chronic small vessel ischemic disease. Old lacunar infarcts within the basal ganglia and ninfa.
--- NOTE | 2021-05-18 20:28 | XRR_ITS ---
PROCEDURE INFORMATION: Exam: XR Chest Exam date and time: 05/18/2021 8:28 PM Age: 75 years old Clinical indication: Shortness of breath; Patient HX: AMS; Additional info: Eval pna TECHNIQUE: Imaging protocol: XR of the chest. Views: 1 view. COMPARISON: CR XR knees AP WB w RT lmt ORTH 03/16/2021 3:13 PM FINDINGS: Lungs: There is hazy airspace opacities at the lung bases, which may represent atelectasis or pneumonia in the adequate clinical setting. A tiny granuloma is seen in the right upper lobe. Pleural spaces: Unremarkable. No pleural effusion. No pneumothorax. Heart/Mediastinum: Stable cardiomediastinal silhouette. Stable cardiomediastinal silhouette. Bones/joints: Unremarkable. XR/XR chest 1V portable [id number] IMPRESSION: Bibasilar atelectasis versus pneumonia. Clinical correlation is recommended.
--- NOTE | 2021-05-18 20:29 | ECG_ITS ---
[facility] Test Date: 2021-05-18 Pat Name: Bryce Stone Department: Room: Gender: Female Drafting Clerk: : 1945 Requested By: Tamra Bhatia Order Number: [id number] Del MD: Yulisa Lam M.D. Measurements Intervals [place] Rate: 69 P: 25 GA: 193 QRS: -26 QRSD: 85 T: 60 QT: 374 QTc: 401 Interpretive Statements SINUS RHYTHM BORDERLINE LEFT AXIS DEVIATION [QRS AXIS < -20] NONSPECIFIC ST & T-WAVE ABNORMALITY Compared to ECG 05/04/2020 23:06:29 T-wave abnormality now present Electronically Signed On 05-19-2021 5:06:28 DIRECTOR SPEECH AND HEARING by Yulisa Lam M.D. [id number]
--- NOTE | 2021-05-18 20:40 | ED_ITS ---
HPI - Altered Mental Status General: Chief Complaint: Altered Mental Status Stated Complaint: AMS Time Seen by Provider: 05/18/21 20:20 [facility] PFSH: Medical History (Updated 05/05/21 @ 15:26 by Jose Rossi MD) Chronic right shoulder pain Chronic tension headaches CKD (chronic kidney disease) stage 2, GFR 60-89 ml/min COPD (chronic obstructive pulmonary disease) Depression with anxiety Dizziness and giddiness Dyslipidemia Dysuria Essential hypertension Fall Fibromyalgia GERD (gastroesophageal reflux disease) HTN (hypertension), benign IBS (irritable bowel syndrome) Incontinence Obesity (BMI 30-39.9) Osteoporosis TIA (transient ischemic attack) Surgical History H/O hemorrhoidectomy H/O: hysterectomy History of appendectomy History of cholecystectomy History of repair of hip fracture History of tonsillectomy Family History Other CAD (coronary artery disease) Cancer Hypertension Social History Smoking and tobacco status: current every day smoker cigarettes Packs smoked per day: 1.5 Years cigarettes smoked: 60 Second hand smoke exposure: Yes Smoking risk assessment/counseling performed?: Yes Alcohol intake: current Alcohol intake frequency: holidays/special occasions only Alcohol type: beer Desire information about alcohol rehabilitation?: No Counseling given: No Desire information about substance/drug rehabilitation?: No Counseling given: No Lives independently: Yes Household members: none Marital status: Current occupational status: retired History of recent travel: No Current gender identity: Female Course Vital Signs: Vital signs: Vital Signs Temperature 98.1 F 05/18/21 20:16 Respiratory Rate 18 05/18/21 20:16 Blood Pressure 165/115 05/18/21 20:16 Pulse Oximetry 93 05/18/21 20:16 Discharge Plan Discharge Condition: Stable Prescriptions: No Action vitamin E 200 unit capsule 400 unit PO DAILY 0RF ascorbate calcium (vitamin C) 500 mg tablet 500 mg PO DAILY 0RF potassium 99 mg tablet 99 mg PO DAILY 0RF (DME) DME: Walker Unit See Rx Instructions .Route Qty: 1 0RF Rx Instructions: Walker with seat and wheels amlodipine 10 mg tablet 5 mg PO DAILY Qty: 90 3RF denosumab 60 mg/mL syringe 60 mg SUBCUT ONCE 180 Days Qty: 1 2RF Rx Instructions: One injection every 6 months for 3 injections, bring to office for each injection. 340 B amitriptyline 25 mg tablet 25 mg PO DAILY Qty: 30 3RF Rx Instructions: 1/2 or 1 tablet 60 minutes before bed time. albuterol sulfate 90 mcg/actuation HFA aerosol inhaler 2 inh inhalation Q6H Qty: 18 2RF atorvastatin 80 mg tablet 80 mg PO DAILY Qty: 90 3RF clopidogrel [Plavix] 75 mg tablet 75 mg PO DAILY Qty: 90 2RF fenofibrate micronized 200 mg capsule 200 mg PO DAILY Qty: 90 3RF Rx Instructions: take 1 capsule, by mouth, daily. meclizine 12.5 mg tablet 12.5 mg PO TID PRN (Reason: dizziness) Qty: 60 1RF venlafaxine 75 mg capsule,extended release 24hr 75 mg PO DAILY Qty: 90 3RF Anoro Ellipta 62.5-25 mcg/actuation blister with device 1 inh inhalation DAILY 30 Days Qty: 60 5RF Rx Instructions: 340 B meds fluticasone propionate 50 mcg/actuation spray,suspension See Rx Instructions .ROUTE .COMPLEX Qty: 16 2RF Dose Instruction: SHAKE LIQUID AND USE 1 SPRAY IN EACH NOSTRIL TWICE DAILY Rx Instructions: SHAKE LIQUID AND USE 1 SPRAY IN EACH NOSTRIL TWICE DAILY Bystolic 20 mg tablet 20 mg PO DAILY Qty: 90 3RF Rx Instructions: 340 B meds esomeprazole magnesium [Nexium] 40 mg capsule,delayed release(DR/EC) See Rx Instructions .ROUTE .COMPLEX 90 Days Qty: 90 1RF Dose Instruction: TAKE 1 CAPSULE BY MOUTH DAILY Rx Instructions: TAKE 1 CAPSULE BY MOUTH DAILY Vitamin D3 25 mcg (1,000 unit) Capsule 25 mcg PO DAILY 0RF Referrals: Jose Rossi MD [Primary Care Provider] - Coding Level of Care Code ED Medical Billing Assistant for Colton Lee
--- NOTE | 2021-05-18 20:49 | W.ED.GENADLT ---
HPI - General Adult General: Chief complaint: Altered Mental Status Stated complaint: AMS Time Seen by Provider: 05/18/21 20:20 History of Present Illness: Patient is a 75-year-old female with a history of cerebral aneurysm s/p clipping and craniotomy, hypertension, chronic headache, CKD, COPD who presents the emergency room for evaluation of new onset of altered mental status. Per patient's son, patient lives at home by herself at baseline is fully ambulatory. Over the last 2 days, patient has become increasingly more confused. Earlier today, patient is on checked on the patient noticed the patient has not fed her dog, has not been taking her medicine, was covered with feces and urine. Patient son called EMS and patient was brought to the emergency room. Patient son tells me that he is not able to take care of his mother at home since he is currently disabled himself. On arrival, patient does not remember exactly what happened. Patient reports right knee pain patient reports falling 2 days ago and landing on her right knee. Patient denies hitting her head. Patient not on any anticoagulation. No complaints of chest, short of breath, rotation or lightheadedness or abdominal complaints, complaints, no new hematochezia currently. Onset: unknown Duration:ongoing Location: home Severity:moderate/severe Associated symptoms: Deny chest pain, dyspnea, nausea, rash, palpitations or vomiting Review of Systems Const: Denies: fever(s) or chills Eyes: Denies: change in vision ENMT: Denies: mouth pain Card: Denies: chest pain or palpitations Resp: Denies: dyspnea or non-productive cough GI: Denies: abdominal pain, nausea, vomiting or diarrhea : Denies: dysuria Musc: Reports: other (+ R knee pain); Denies: extremity pain Skin/Breast: Denies: rash or new lesions Neuro: Reports: other (+altered mental status); Denies: weakness in extremities Psych: Reports: other (Normal mood) Parrish/Lymph: Denies: easy bruising PFS ED PFSH: Medical History Chronic right shoulder pain Chronic tension headaches CKD (chronic kidney disease) stage 2, GFR 60-89 ml/min COPD (chronic obstructive pulmonary disease) Depression with anxiety Dizziness and giddiness Dyslipidemia Dysuria Essential hypertension Fall Fibromyalgia GERD (gastroesophageal reflux disease) HTN (hypertension), benign IBS (irritable bowel syndrome) Incontinence Obesity (BMI 30-39.9) Osteoporosis TIA (transient ischemic attack) Surgical History H/O hemorrhoidectomy H/O: hysterectomy History of appendectomy History of cholecystectomy History of repair of hip fracture History of tonsillectomy Family History Other CAD (coronary artery disease) Cancer Hypertension Social History Smoking and tobacco status: current every day smoker cigarettes Packs smoked per day: 1.5 Years cigarettes smoked: 60 Second hand smoke exposure: Yes Smoking risk assessment/counseling performed?: Yes Alcohol intake: current Alcohol intake frequency: holidays/special occasions only Alcohol type: beer Desire information about alcohol rehabilitation?: No Counseling given: No Desire information about substance/drug rehabilitation?: No Counseling given: No Lives independently: Yes Household members: none Marital status: Current occupational status: retired History of recent travel: No Current gender identity: Female Physical Exam Const: COMMON NORMALS: alert HENMT: COMMON NORMALS: atraumatic HEAD & SCALP: atraumatic MOUTH: moist mucous membranes not abnormal Eye: COMMON NORMALS: EOMs intact bilaterally and conjunctivae normal CONJUNCTIVA: Yes conjunctivae normal Neck/C-Spine: COMMON NORMALS: full ROM and supple Resp: COMMON NORMALS: normal respiratory effort and clear to auscultation bilaterally AUSCULTATION: clear to auscultation bilaterally Cardio: COMMON NORMALS: regular rate RATE: regular rate GI: COMMON NORMALS: Soft to palpation and non-tender PALPATION: Yes Soft to palpation Extremity: COMMON NORMALS: full ROM Neuro: SENSORIUM/ORIENTATION: Yes alert MOTOR EXAM: No Abnormal motor strength present OTHER: Moving all extremities, sensations intact in the extremities, cranial nerves II -XII grossly intact, patient is able to follow commands, GCS 14, AAO x2. Psych: COMMON NORMALS: speech normal SPEECH: Yes normal speech MOOD & AFFECT: Yes euthymic mood Course Vital Signs: Vital signs: Vital Signs Temperature 98.1 F 05/18/21 20:16 Respiratory Rate 18 05/18/21 20:16 Blood Pressure 165/115 05/18/21 20:16 Pulse Oximetry 93 05/18/21 20:16 [facility] - General Adult Medical Decision Making Patient is 75-year-old female with a history of cerebral aneurysms, CKD, hypertension, hyperlipidemia, COPD who presents emergency room for acute onset of altered mental status. On exam, patient is afebrile, no other focal findings today. Patient's neurological exam is grossly normal however exam is limited by by cognitive status. CT imaging is negative for any acute findings. WBC of 11.6. Pending urine at this time. X-rays consistent with possible atelectasis versus pneumonia. Given the fact that patient is afebrile, has no respiratory complaints with similar WBC compared prior, this is unlikely to be pneumonia. I have discussed case with patient's son Farrukh who tells me that he is currently disabled and unable to take care of her mother. Farrukh recommended keeping his mother in the hospital for 1 night so that there can be a discussion on placement tomorrow morning. Disposition: Admission for placement and evaluation for altered mental status. Lab Data : 05/18/21 20:47 05/18/21 20:47 Radiology Impressions Chest X-Ray 05/18/21 20:28 IMPRESSION: Bibasilar atelectasis versus pneumonia. Clinical correlation is recommended. Head CT 05/18/21 20:28 IMPRESSION: 1. No acute intracranial abnormality. 2. Moderate diffuse cerebral atrophy and sequela of chronic small vessel ischemic disease. Old lacunar infarcts within the basal ganglia and ninfa. Knee X-Ray 05/18/21 21:00 IMPRESSION: No acute injury. Laboratory Results WBC 11.6 10^3/uL (4.0-10.0) H 05/18/21 20:47 RBC 4.68 10^6/uL (4.1-5.3) 05/18/21 20:47 Hgb 14.6 g/dL (11.5-15.3) 05/18/21 20:47 Hct 42.8 % (37.0-47.0) 05/18/21 20:47 MCV 91.5 fl (81-99) 05/18/21 20:47 MCH 31.2 pg (28.0-34.0) 05/18/21 20:47 MCHC 34.1 g/dL (30.0-36.0) 05/18/21 20:47 RDW 12.8 % (12.1-15.1) 05/18/21 20:47 Plt Count 329 10^3/cmm (130-400) 05/18/21 20:47 MPV 9.9 fL (7.4-10.4) 05/18/21 20:47 Neut % (Auto) 66.1 % 05/18/21 20:47 Lymph % (Auto) 23.9 % 05/18/21 20:47 [place] % (Auto) 7.8 % 05/18/21 20:47 Eos % (Auto) 1.5 % 05/18/21 20:47 Baso % (Auto) 0.4 % 05/18/21 20:47 Neut # (Auto) 7.66 10^3/uL (1.8-7.7) 05/18/21 20:47 Lymph # (Auto) 2.8 10^3/uL (0.8-4.8) 05/18/21 20:47 [place] # (Auto) 0.9 10^3/uL (0.2-0.9) 05/18/21 20:47 Eos # (Auto) 0.2 10^3/uL (0.0-0.8) 05/18/21 20:47 Baso # (Auto) 0.1 10^3/uL (0.0-0.1) 05/18/21 20:47 Nucleated RBC % (auto) 0 % 05/18/21 20:47 Nucleated RBCs # 0.0 /100WBC 05/18/21 20:47 Sodium 140 mmol/L (136-145) 05/18/21 20:47 Potassium 3.8 mmol/L (3.5-5.1) 05/18/21 20:47 Chloride 103 mmol/L (98-107) 05/18/21 20:47 Carbon Dioxide 21 mmol/L (22-29) L 05/18/21 20:47 Anion Gap 19.8 (5-19) H 05/18/21 20:47 BUN 13 mg/dL (8-23) 05/18/21 20:47 Creatinine 0.9 mg/dL (0.5-0.9) 05/18/21 20:47 GFR Calculation Not Reportable 05/18/21 20:47 Glucose 82 mg/dL (65-115) 05/18/21 20:47 Calculated Osmolality 289 mOsm/kg (285-295) 05/18/21 20:47 Calcium 10.1 mg/dL (8.5-10.5) 05/18/21 20:47 Total Bilirubin 0.3 mg/dL (0.15-1.2) 05/18/21 20:47 AST 15 U/L (0-32) 05/18/21 20:47 ALT 16 U/L (0-33) 05/18/21 20:47 Alkaline Phosphatase 131 IU/L (35-105) H 05/18/21 20:47 Troponin T Baseline 10 ng/L (0-10) 05/18/21 20:47 Total Protein 6.8 g/dL (6.6-8.7) 05/18/21 20:47 Albumin 3.9 g/dL (3.5-5.2) 05/18/21 20:47 Globulin 2.9 g/dL (1.3-4.6) 05/18/21 20:47 Lipase 22 U/L (13-60) 05/18/21 20:47 TSH 2.83 uIU/mL (0.27-4.20) 05/18/21 20:47 Salicylates < 0.3 mg/dL (3-10) L 05/18/21 20:47 Acetaminophen < 5.0 ug/mL (10-30) L 05/18/21 20:47 Imaging Data Other Imaging: Radiologist's impression: [address] [address] XRay Report Signed Patient: Bryce Schmidt Unit #: [id number] : 1945 Age/Sex: 75 / F ADM Date: 05/18/21 Loc: ER Room/Bed: Attending Dr: Ordering Provider/Ordering MD: Tamra Bhatia MD Date of Service: 05/18/21 Procedure(s): XR knee RT 3V* [id number] Accession Number(s): [id number] Report Number: [id number] PROCEDURE INFORMATION: Exam: XR Right Knee Exam date and time: 05/18/2021 9:00 PM Age: 75 years old Clinical indication: Pain; Knee; Right; Additional info: Fall TECHNIQUE: Imaging protocol: XR Right knee. Views: 3 views. COMPARISON: CR XR knees AP WB w RT lmt ORTH 03/16/2021 3:13 PM FINDINGS: Bones/joints: Right femur intramedullary checo noted. No fracture or dislocation. Joint spaces are well maintained. Soft tissues: Normal. XR/XR knee RT 3V* [id number] IMPRESSION: No acute injury. ? Dictated By: Lakhwinder Singleton Signed By: Lakhwinder Singleton Signed Date/Time: 05/18/212199 DD/ [email or web address] [address] [address] Scan Report Signed Patient: Bryce Schmidt Unit #: [id number] : 1945 Age/Sex: 75 / F ADM Date: 05/18/21 Loc: ER Room/Bed: Attending Dr: Ordering Provider/Ordering MD: Tamra Bhatia MD Date of Service: 05/18/21 Procedure(s): CT head wo con* [id number] Accession Number(s): [id number] Report Number: [id number] PROCEDURE INFORMATION: Exam: CT Head Without Contrast Exam date and time: 05/18/2021 8:28 PM Age: 75 years old Clinical indication: Altered mental status/memory loss; Prior surgery; Surgery date: 6+ months; Surgery type: Craniotomy; Patient HX: C/O ams/forgetfullness TECHNIQUE: Imaging protocol: Computed tomography of the head without contrast. Radiation optimization: All CT scans at this facility use at least one of these dose optimization techniques: automated exposure control; mA and/or kV adjustment per patient size (includes targeted exams where dose is matched to clinical indication); or iterative reconstruction. COMPARISON: CR XR knees AP WB w RT lmt ORTH 03/16/2021 3:13 PM RADIATION DOSE METRICS: Total DLP (mGy-cm): 741.67 FINDINGS: Brain: No hemorrhage. Moderate diffuse cerebral atrophy and sequela of chronic small vessel ischemic disease. Old lacunar infarcts within the basal ganglia and ninfa. Coil embolization material within the left supraclinoid region. No mass effect. Cerebral ventricles: No ventriculomegaly. Paranasal sinuses: Visualized sinuses are unremarkable. No fluid levels. Mastoid air cells: Visualized mastoid air cells are well aerated. Bones/joints: Small metallic plates noted within the left frontal calvarium. No acute fracture. Soft tissues: Unremarkable. CT/CT head wo con* [id number] IMPRESSION: 1. No acute intracranial abnormality. 2. Moderate diffuse cerebral atrophy and sequela of chronic small vessel ischemic disease. Old lacunar infarcts within the basal ganglia and ninfa. ? Dictated By: Braeden Cuenca DO Signed By: Braeden Cuenca DO Signed Date/Time: 05/18/212141 DD/ [address] [address] XRay Report Signed Patient: Bryce Schmidt Unit #: [id number] : 1945 Age/Sex: 75 / F ADM Date: 05/18/21 Loc: ER Room/Bed: Attending Dr: Ordering Provider/Ordering MD: Tamra Bhatia MD Date of Service: 05/18/21 Procedure(s): XR chest 1V portable [id number] Accession Number(s): [id number] Report Number: [id number] PROCEDURE INFORMATION: Exam: XR Chest Exam date and time: 05/18/2021 8:28 PM Age: 75 years old Clinical indication: Shortness of breath; Patient HX: AMS; Additional info: Eval pna TECHNIQUE: Imaging protocol: XR of the chest. Views: 1 view. COMPARISON: CR XR knees AP WB w RT lmt ORTH 03/16/2021 3:13 PM FINDINGS: Lungs: There is hazy airspace opacities at the lung bases, which may represent atelectasis or pneumonia in the adequate clinical setting. A tiny granuloma is seen in the right upper lobe. Pleural spaces: Unremarkable. No pleural effusion. No pneumothorax. Heart/Mediastinum: Stable cardiomediastinal silhouette. Stable cardiomediastinal silhouette. Bones/joints: Unremarkable. XR/XR chest 1V portable [id number] IMPRESSION: Bibasilar atelectasis versus pneumonia. Clinical correlation is recommended. ? Dictated By: Lakhwinder Singleton Signed By: Lakhwinder Singleton Signed Date/Time: 05/18/212158 DD/ 27 [facility] [address] [place] [address] XRay Report Signed Patient: Bryce Schmidt Unit #: [id number] : 1945 Age/Sex: 75 / F ADM Date: 03/16/21 Loc: ORTHO Room/Bed: Attending Dr: Siddhartha De La Fuente MD Ordering Provider/Ordering MD: Siddhartha De La Fuente MD Date of Service: 03/16/21 Procedure(s): XR knees AP WB w RT lmt ORTH Accession Number(s): [id number] Report Number: [id number] WS: [id number] Exam: XR knees AP WB w RT lmt ORTH Date/Time of Exam: 03/16/2021 3:04 PM Reason For Exam: M25.561 - Pain in right knee No fracture or dislocation. 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 Probable effusion in the suprapatellar bursa. Intramedullary checo is partially visualized in the lower femur. AP view the left knee shows mild degenerative changes. XR/XR knees AP WB w RT lmt ORTH IMPRESSION: 1. Mild tricompartmental DJD. No fracture. 2. Probable effusion in the suprapatellar bursa. ? Dictated By: Basilio Oliva DO Signed By: Basilio Oliva DO Signed Date/Time: 03/16/21 1520 DD/ 1516 Discharge Plan Discharge Patient Disposition: Admitted As Inpatient Clinical Impression: Altered mental status Condition: Stable Coding Level of Care Code ED Process Description Writer for Chg Fwd Exam Comprehensive
[2021-05-18 20:57] LABS: Basophils # 0.1 10^3/uL (0.0-0.1); Basophils % 0.4 %; Eosinophils # 0.2 10^3/uL (0.0-0.8); Eosinophils % 1.5 %; Hematocrit 42.8 % (37.0-47.0); Hemoglobin 14.6 g/dL (11.5-15.3); Lymphocytes # 2.8 10^3/uL (0.8-4.8); Lymphocytes % 23.9 %; Mean Corpuscular HGB Conc 34.1 g/dL (30.0-36.0); Mean Corpuscular Hemoglobin 31.2 pg (28.0-34.0); Mean Corpuscular Volume 91.5 fl (81-99); Mean Platelet Volume 9.9 fL (7.4-10.4); Monocytes # 0.9 10^3/uL (0.2-0.9); Monocytes % 7.8 %; Neutrophils # 7.66 10^3/uL (1.8-7.7); Neutrophils % 66.1 %; Nucleated Red Blood Cells % 0 %; Platelet Count 329 10^3/cmm (130-400); Red Blood Count 4.68 10^6/uL (4.1-5.3); Red Cell Distribution Width 12.8 % (12.1-15.1); White Blood Count 11.6 10^3/uL (4.0-10.0)
--- NOTE | 2021-05-18 21:00 | XRR_ITS ---
PROCEDURE INFORMATION: Exam: XR Right Knee Exam date and time: 05/18/2021 9:00 PM Age: 75 years old Clinical indication: Pain; Knee; Right; Additional info: Fall TECHNIQUE: Imaging protocol: XR Right knee. Views: 3 views. COMPARISON: CR XR knees AP WB w RT lmt ORTH 03/16/2021 3:13 PM FINDINGS: Bones/joints: Right femur intramedullary checo noted. No fracture or dislocation. Joint spaces are well maintained. Soft tissues: Normal. XR/XR knee RT 3V* [id number] IMPRESSION: No acute injury.
--- NOTE | 2021-05-18 21:05 | CTR_ITS ---
PROCEDURE INFORMATION: Exam: CT Angiography Head With Contrast, Arteriography Exam date and time: 05/18/2021 9:05 PM Age: 75 years old Clinical indication: Memory loss; Type not specified; Prior surgery; Surgery date: 6+ months; Surgery type: Craniotomy, aneurysm; Patient HX: C/O forgetfullness; Additional info: Eval for aneuryms given HX of aneurysm TECHNIQUE: Imaging protocol: Computed tomography angiography of the head with contrast. Exam focused on the arteries. 3D rendering (Not supervised by radiologist): MIP and/or 3D reconstructed images were created by the technologist. Radiation optimization: All CT scans at this facility use at least one of these dose optimization techniques: automated exposure control; mA and/or kV adjustment per patient size (includes targeted exams where dose is matched to clinical indication); or iterative reconstruction. Contrast material: OMNI 350; Contrast volume: 95 ml; Contrast route: INTRAVENOUS (IV); COMPARISON: CT head wo con* [id number] 05/18/2021 9:08 PM RADIATION DOSE METRICS: Total DLP (mGy-cm): 1839.15 FINDINGS: ANTERIOR CIRCULATION: Right internal carotid artery: Unremarkable. Intracranial segment is patent with no significant stenosis. No aneurysm. Right middle cerebral artery: Unremarkable. No occlusion or significant stenosis. No aneurysm. Right anterior cerebral artery: Hypoplastic A1 segment of the right anterior cerebral artery. The A2 segment is mainly perfused through the patent anterior communicating artery. No aneurysm. Left internal carotid artery: Aneurysm clip noted in the left supraclinoid region. Left middle cerebral artery: Unremarkable. No occlusion or significant stenosis. No aneurysm. Left anterior cerebral artery: Unremarkable. No occlusion or significant stenosis. No aneurysm. POSTERIOR CIRCULATION: Right vertebral artery: Unremarkable. No occlusion or significant stenosis. No aneurysm. Left vertebral artery: Unremarkable. No occlusion or significant stenosis. No aneurysm. Basilar artery: Unremarkable. No occlusion or significant stenosis. No aneurysm. Right posterior cerebral artery: Unremarkable. No occlusion or significant stenosis. No aneurysm. Left posterior cerebral artery: Unremarkable. No occlusion or significant stenosis. No aneurysm. Brain: No hemorrhage, mass effect or midline shift. No acute, major vascular distribution infarction identified. There is a patchy area of encephalomalacia in the anterior left temporal lobe. Old lacunar infarcts are again noted in the basal ganglia and ninfa. There is foci of decreased attenuation in the periventricular and subcortical white matter, likely representing chronic small vessel ischemic changes. Mild cerebral volume loss is present. No intra-axial or extra-axial fluid collection seen. Cerebral ventricles: No ventriculomegaly. Bones/joints: Left pterional craniotomy changes noted. Mastoid air cells: Visualized mastoid air cells are well aerated. Soft tissues: Unremarkable. Paranasal sinuses: Visualized sinuses are unremarkable. No fluid levels. PROCEDURE INFORMATION: Exam: CT Angiography Neck With Contrast Exam date and time: 05/18/2021 9:05 PM Age: 75 years old Clinical indication: Memory loss; Type not specified; Prior surgery; Surgery date: 6+ months; Surgery type: Craniotomy, aneurysm; Patient HX: C/O forgetfullness; Additional info: Eval for aneuryms given HX of aneurysm TECHNIQUE: Imaging protocol: Computed tomography angiography of the neck with contrast. 3D rendering (Not supervised by radiologist): MIP and/or 3D reconstructed images were created by the technologist. Radiation optimization: All CT scans at this facility use at least one of these dose optimization techniques: automated exposure control; mA and/or kV adjustment per patient size (includes targeted exams where dose is matched to clinical indication); or iterative reconstruction. Contrast material: OMNI 350; Contrast volume: 95 ml; Contrast route: INTRAVENOUS (IV); COMPARISON: CT head wo con* [id number] 05/18/2021 9:08 PM RADIATION DOSE METRICS: Total DLP (mGy-cm): 1839.15 FINDINGS: Right common carotid artery: No stenosis. No dissection or occlusion. Right internal carotid artery: No stenosis of the extracranial segment. No dissection or occlusion. Right external carotid artery: No occlusion or stenosis of the origin. Left common carotid artery: No stenosis. No dissection or occlusion. Left internal carotid artery: No stenosis of the extracranial segment. No dissection or occlusion. Left external carotid artery: No occlusion or stenosis of the origin. Right vertebral artery: No stenosis. No dissection or occlusion. Left vertebral artery: No stenosis. No dissection or occlusion. Soft tissues: Normal. No significant soft tissue swelling. Bones/joints: Degenerative changes of the spine seen. Lungs: Centrilobular emphysema is present. Tiny calcified granuloma noted in the right lung apex. CT/CT angio headneck* [id number] IMPRESSION: 1. No large vessel stenosis or occlusion. 2. No acute intracranial abnormality. IMPRESSION: No stenosis or occlusion. REFERENCES: NASCET CRITERIA. The degree of internal carotid artery stenosis is based on NASCET criteria. Normal is no stenosis. Mild is less than 50% stenosis. Moderate is 50-69% stenosis. Severe is 70% to 99% stenosis. Total occlusion is no detectable patent lumen.
[2021-05-18 21:27] LABS: Troponin(5th) Baseline 10 ng/L (0-10)
[2021-05-18 21:37] LABS: Alanine Aminotransferase 16 U/L (0-33); Albumin Level 3.9 g/dL (3.5-5.2); Alkaline Phosphatase 131 IU/L (35-105); Anion Gap 19.8 (5-19); Aspartate Amino Transferase 15 U/L (0-32); Blood Urea Nitrogen 13 mg/dL (8-23); Calcium 10.1 mg/dL (8.5-10.5); Carbon Dioxide 21 mmol/L (22-29); Chloride 103 mmol/L (98-107); Globulin 2.9 g/dL (1.3-4.6); Glucose 82 mg/dL (65-115); Lipase 22 U/L (13-60); Osmolality Calculated 289 mOsm/kg (285-295); Potassium 3.8 mmol/L (3.5-5.1); Sodium 140 mmol/L (136-145); Thyroid Stimulating Hormone 2.83 uIU/mL (0.27-4.20); Total Bilirubin 0.3 mg/dL (0.15-1.2); Total Protein 6.8 g/dL (6.6-8.7)
[2021-05-18 21:39] LABS: Acetaminophen < 5.0 ug/mL (10-30); Salicylate < 0.3 mg/dL (3-10)
[2021-05-18] MEDS: acetaminophen 500 mg Tablet PO (21:45)
[2021-05-18] MEDS: sodium chloride 0.9% 500 ML IV (21:45)
[2021-05-18] MEDS: iohexol 350 mg/mL 100 mL Btl IV (22:23)
[2021-05-18 22:26] LABS: Free T4 Free Thyroxine 1.24 ng/dL (0.82-1.77)
--- NOTE | 2021-05-18 22:29 | ECG_ITS ---
[facility] Date: 2021-05-18 Pat Name: Bryce Schmidt Department: Room: Gender: Female Lump Receiver: : 1945 Requested By: Tamra Bhatia Order Number: [id number] Del MD: Terrance Salter M.D. Measurements Intervals [place] Rate: 60 P: 24 OH: 190 QRS: -18 QRSD: 97 T: 35 QT: 399 QTc: 400 Interpretive Statements SINUS RHYTHM NONSPECIFIC ST & T-WAVE ABNORMALITY Compared to ECG 05/18/2021 20:33:52 No significant changes Electronically Signed On 05-19-2021 20:57:31 INSURANCE ADJUSTOR by Terrance Salter M.D. [id number]
--- NOTE | 2021-05-18 23:03 | P.HP_ITS ---
Providers/Chief Complaint Primary Care Provider: Jose Rossi MD Chief Complaint: AMS History of Present Illness Bryce Schmidt is a 75 year old female with a past medical history of TIA on Plavix, CKD stage II, anxiety and depression, GERD, hypertension, COPD, osteoarthritis, history of cerebral aneurysm, who presents to [facility] due to altered mental status. Currently patient is alert to person, not to place, not to time, she does not know who the president is nor does she know her address, son at bedside tells me that she is normally alert oriented x3, she is quite independent, lives by herself, he tells me that today he discovered his mom at home, she was confused, she had notified her dogs, she was found in her feces and urine. Patient has received both COVID vaccines, no recent fevers or cough. She has followed up with Dr. Rossi on 05/05/2021. Her only comp right knee pain from a fall Complaint is right knee pain. No facial droop, no slurring of her words, no focal neurologic deficits Review of Systems General: Reports: ROS unobtainable due to mental status Medications/Allergies Home Medications Medication Instructions Recorded Confirmed Last Taken Type ascorbate calcium (vitamin C) 500 500 mg PO DAILY 12/26/19 05/05/21 05/04/20 History mg tablet vitamin E 200 unit capsule 400 unit PO DAILY 12/26/19 05/05/21 05/04/20 History potassium 99 mg tablet 99 mg PO DAILY tab 04/16/20 05/05/21 05/04/20 History cholecalciferol (vitamin D3) 25 25 mcg PO DAILY 05/05/20 05/05/21 05/04/20 History mcg (1,000 unit) capsule (Vitamin D3) DME: Walker #1 ea 08/07/20 05/05/21 Unknown Rx umeclidinium 62.5 mcg-vilanterol 1 inh INHALATION DAILY 30 Days #60 02/06/21 05/05/21 Unknown Rx 25 mcg/actuation powdr for ea inhalation (Anoro Ellipta) amlodipine 10 mg tablet 5 mg PO DAILY #90 tab 02/17/21 05/05/21 Unknown Rx albuterol sulfate 90 mcg/actuation 2 inh INHALATION Q6H #18 g 05/05/21 05/05/21 Unknown Rx aerosol inhaler amitriptyline 25 mg tablet 25 mg PO DAILY #30 tab 05/05/21 05/05/21 Unknown Rx atorvastatin 80 mg tablet 80 mg PO DAILY #90 tab 05/05/21 05/05/21 Unknown Rx clopidogrel 75 mg tablet (Plavix) 75 mg PO DAILY #90 tab 05/05/21 05/05/21 Unknown Rx denosumab 60 mg/mL subcutaneous 60 mg SUBCUT ONCE 180 Days #1 ml 05/05/21 05/05/21 Unknown Rx syringe fenofibrate micronized 200 mg 200 mg PO DAILY #90 cap 05/05/21 05/05/21 Unknown Rx capsule meclizine 12.5 mg tablet 12.5 mg PO TID PRN #60 tab 05/05/21 05/05/21 Unknown Rx venlafaxine 75 mg capsule,extended 75 mg PO DAILY #90 cap 05/05/21 05/05/21 Unknown Rx release 24 hr fluticasone propionate 50 See Rx Instructions .ROUTE 05/07/21 Unknown Rx mcg/actuation nasal .COMPLEX #16 g spray,suspension Bystolic 20 mg tablet (nebivolol) 20 mg PO DAILY #90 tab NS 05/12/21 Unknown Rx Nexium 40 mg capsule,delayed See Rx Instructions .ROUTE 05/12/21 Unknown Rx release (esomeprazole magnesium) .COMPLEX 90 Days #90 cap NS Allergies Allergy/AdvReac Type Severity Reaction Status Date / Time alprazolam [From Xanax] AdvReac Mild i pass Verified 05/05/21 14:31 out clonidine AdvReac Mild memory loss Verified 05/05/21 14:31 codeine AdvReac Mild unknown Verified 05/05/21 14:31 duloxetine [From Cymbalta] AdvReac Mild insomnia Verified 05/05/21 14:31 levetiracetam AdvReac Mild depression Verified 05/05/21 14:31 metformin AdvReac Mild diarrhea Verified 05/05/21 14:31 valsartan [From Diovan] AdvReac Mild unknown Verified 05/05/21 14:31 PFSH Acute PFSH: Medical History Chronic right shoulder pain Chronic tension headaches CKD (chronic kidney disease) stage 2, GFR 60-89 ml/min COPD (chronic obstructive pulmonary disease) Depression with anxiety Dizziness and giddiness Dyslipidemia Dysuria Essential hypertension Fall Fibromyalgia GERD (gastroesophageal reflux disease) HTN (hypertension), benign IBS (irritable bowel syndrome) Incontinence Obesity (BMI 30-39.9) Osteoporosis TIA (transient ischemic attack) Surgical History H/O hemorrhoidectomy H/O: hysterectomy History of appendectomy History of cholecystectomy History of repair of hip fracture History of tonsillectomy Family History Other CAD (coronary artery disease) Cancer Hypertension Social History Smoking and tobacco status: current every day smoker cigarettes Packs smoked per day: 1.5 Years cigarettes smoked: 60 Second hand smoke exposure: Yes Smoking risk assessment/counseling performed?: Yes Alcohol intake: current Alcohol intake frequency: holidays/special occasions only Alcohol type: beer Desire information about alcohol rehabilitation?: No Counseling given: No Desire information about substance/drug rehabilitation?: No Counseling given: No Lives independently: Yes Household members: none Marital status: Current occupational status: retired History of recent travel: No Current gender identity: Female Vitals/I&O/Wt Last Vital Signs Temp 98.1 F 05/18/21 20:16 Resp 18 05/18/21 20:16 BP 165/115 05/18/21 20:16 Pulse Ox 93 05/18/21 20:16 Weight last 48 hrs Weight 81.647 kg Physical Exam Const: COMMON NORMALS: no acute distress EXAM LIMITATIONS: altered mental status ORIENTATION/CONSCIOUSNESS: Yes awake, Yes oriented to person and Yes confused; not oriented to place and not oriented to time HENMT: COMMON NORMALS: normocephalic HEAD & SCALP: normocephalic Eye: COMMON NORMALS: Equal, round and reactive pupils present and EOMs intact bilaterally Neck/C-Spine: COMMON NORMALS: full ROM and no lymphadenopathy Lymph: LYMPHATIC: no lymphadenopathy noted Resp: COMMON NORMALS: normal respiratory effort, No retractions, No use of accessory muscles and clear to auscultation bilaterally AUSCULTATION: clear to auscultation bilaterally Cardio: COMMON NORMALS: regular rate, regular rhythm, S1 normal heart sound present and S2 normal heart sound present RATE: regular rate RHYTHM: regular rhythm HEART SOUNDS: S1 normal heart sound present and S2 normal heart sound present GI: COMMON NORMALS: Normal to inspection, nondistended, normoactive bowel sounds present, Soft to palpation, non-tender, No hepatosplenomegaly present, no masses and no bruits PALPATION: Yes Soft to palpation and Yes No hepatosplenomegaly present Extremity: COMMON NORMALS: capillary refill normal, no clubbing, cyanosis or edema, no calf tenderness and no pedal edema Neuro: COMMON NORMALS: CN's II-XII intact bilaterally, moves all extremities and no focal motor deficits Data : 05/18/21 20:47 05/18/21 20:47 A&P Assessment and plan (1) Altered mental status: Status: Acute (2) UTI (urinary tract infection): Status: Acute (3) CKD (chronic kidney disease) stage 2, GFR 60-89 ml/min: Status: Acute (4) Depression with anxiety: Status: Acute (5) HTN (hypertension), benign: Status: Acute (6) Osteoarthritis: Status: Acute (7) COPD (chronic obstructive pulmonary disease): Status: Acute (8) Obesity (BMI 30-39.9): Status: Acute (9) Dyslipidemia: Status: Chronic (10) TIA (transient ischemic attack): Status: Acute Plan Altered mental status - Secondary to UTI -We will continue Rocephin Urinary tract infection -Renal ultrasound, Rocephin Hypertension, continue home meds History of TIA, CT head no acute stroke, CTA head and neck within normal limits Hyperlipidemia, continue meds COPD not in exacerbation PT OT Speech therapy eval Full code Attestations Medical Necessity Statement*: Patient requires hospital, inpatient, greater than 2 midnights, UTI Coding Level of Care Code Acute Automobile Rental Representative for Chg Fwd Diagnoses Altered mental status R41.82 UTI (urinary tract infection) N39.0 CKD (chronic kidney disease) stage 2, GFR 60-89 ml/min N18.2 Depression with anxiety F41.8 HTN (hypertension), benign I10 Osteoarthritis M19.90 COPD (chronic obstructive pulmonary disease) J44.9 Obesity (BMI 30-39.9) E66.9 Dyslipidemia E78.5 TIA (transient ischemic attack) G45.9
[2021-05-18 23:07] LABS: Add Urine Microscopic? YES; Bilirubin Urine Neg (Negative); Blood Urine Neg (Negative); Glucose Urine UA Norm (Normal); Ketones Urine Negative (Negative); Leukocyte Esterase Urine 1+ (Negative); Nitrate Urine Positive (Negative); Protein Urine 2+ (Negative); Specific Gravity, Urine 1.015 (1.005-1.030); Urine Appearance Clear (CLEAR); Urine Color Yellow (Yellow); Urobilinogen Urine Norm (Negative); pH Urine 6 (5-7)
[2021-05-18 23:10] LABS: Add Urine Culture? No; Bacteria Urine 4+ /hpf; RBC Urine 0-4 /hpf (0-2); Squamous Epithelial Cell Urine 25-40 /hpf (0-5); WBC Urine 55-80 /hpf (0-5)
[2021-05-18 23:21] LABS: C Reactive Protein 13.2 mg/L (0.0-4.9)
[2021-05-18 23:23] LABS: Troponin 5 2HR 14.41 ng/L (0-10); Troponin 5 2HR Delta 4.41 ABS# (0-10)
[2021-05-18 23:24] VITALS: BP 190/96; PULSE 64; RESP 18; TEMP 36.7; O2SAT 94
[2021-05-18 23:27] LABS: Procalcitonin 0.05 ng/mL (0-0.5)
[2021-05-19] VITALS (11 sets, daily range): BP systolic 146–196; BP diastolic 74–94; PULSE 63–82; RESP 16–18; TEMP 36.8–37.2; O2SAT 90–97
--- NOTE | 2021-05-19 01:24 | US_ITS ---
WS: [id number] RENAL ULTRASOUND HISTORY: uti COMPARISON: None available. TECHNIQUE: 2-D and color Doppler imaging of the kidney submitted. Right kidney: 11.8 cm x 7.6 cm x 4.7 cm. Normal size kidney. Cortical cyst upper pole measures 4.1 x 3.9 x 3.6 cm. No solid mass identified. E chogenicity of the kidney is normal. Left kidney: 9.1 cm x 5.8 cm x 3.7 cm. Normal size kidney. Minimally complex cyst from the superior pole measures 4.7 x 4.2 x 4.1 cm. LEFT k idney is difficult to visualize in its entirety. The cortex is lobulated. Focal areas of cortical thi nning but no hydronephrosis or solid mass identified. Aorta: Dilated abdominal aorta. Fusiform aneurysm with a maximum diameter of 4.4 cm. Aneurysm extends over a length of 4.8 cm. Urinary Bladder: Minimally distended. US/US renal BI* [id number] IMPRESSION: 1. Bilateral renal cysts as above described above. 2. No hydronephrosis. 3. No solid mass identified. LEFT kidney evaluation is limited. 4. Abdominal aortic aneurysm with a maximum diameter 4.4 cm.
[2021-05-19] MEDS: enoxaparin 40 mg/0.4 mL Syringe SUBCUT (02:28)
[2021-05-19] MEDS: pantoprazole 40 mg SDV IVP (02:28)
[2021-05-19] MEDS: cefTRIAXone 1,000 MG in sodium chloride 0.9% (plus) 100 ML 100 MG IV (02:29)
[2021-05-19] MEDS: sodium chloride 0.9% 1,000 ML 100 ML IV (02:29)
[2021-05-19 04:38] LABS: Basophils % 0.4 %; Eosinophils # 0.3 10^3/uL (0.0-0.8); Eosinophils % 2.7 %; Hematocrit 37.2 % (37.0-47.0); Hemoglobin 12.8 g/dL (11.5-15.3); Lymphocytes # 3.3 10^3/uL (0.8-4.8); Lymphocytes % 33.1 %; Mean Corpuscular HGB Conc 34.4 g/dL (30.0-36.0); Mean Corpuscular Hemoglobin 31.5 pg (28.0-34.0); Mean Corpuscular Volume 91.6 fl (81-99); Mean Platelet Volume 9.9 fL (7.4-10.4); Monocytes # 0.9 10^3/uL (0.2-0.9); Monocytes % 8.7 %; Neutrophils # 5.46 10^3/uL (1.8-7.7); Neutrophils % 54.8 %; Nucleated Red Blood Cells % 0 %; Platelet Count 278 10^3/cmm (130-400); Red Blood Count 4.06 10^6/uL (4.1-5.3); Red Cell Distribution Width 12.9 % (12.1-15.1)
[2021-05-19 04:59] LABS: Alanine Aminotransferase 14 U/L (0-33); Albumin Level 3.7 g/dL (3.5-5.2); Alkaline Phosphatase 117 IU/L (35-105); Anion Gap 14.7 (5-19); Aspartate Amino Transferase 15 U/L (0-32); Blood Urea Nitrogen 10 mg/dL (8-23); Calcium 8.5 mg/dL (8.5-10.5); Carbon Dioxide 23 mmol/L (22-29); Chloride 105 mmol/L (98-107); Glucose 96 mg/dL (65-115); Magnesium 1.5 mg/dL (1.7-2.3); Osmolality Calculated 287 mOsm/kg (285-295); Phosphorus 3.8 mg/dL (2.5-4.5); Potassium 3.7 mmol/L (3.5-5.1); Sodium 139 mmol/L (136-145); Total Bilirubin 0.3 mg/dL (0.15-1.2); Total Protein 5.7 g/dL (6.6-8.7)
[2021-05-19] MEDS: dextrose 5%-sod chloride 0.9% 1,000 ML 75 ML IV ×2 (05:19→17:36)
--- NOTE | 2021-05-19 08:53 | PC.PHAR ---
pt states she takes care of her own medications-pt states she is unsure of all the names of the medications she takes pt verified the otc meds-medications entered are meds that show ext med history has filled recently and what the pt was able to verify-notes are made in the pharmacy comments
[2021-05-19] MEDS: clopidogrel 75 mg Tablet PO (09:13)
[2021-05-19] MEDS: cholecalciferol (vitamin D3) 1,000 unit Tablet 1000 UNIT PO (09:13)
[2021-05-19] MEDS: atorvastatin 40 mg Tablet 80 MG PO (09:13)
[2021-05-19] MEDS: docusate sodium 100 mg Capsule PO ×2 (09:13→17:37)
[2021-05-19] MEDS: magnesium sulfate premix 2 GM/50 ML PIGGYBACK IV (09:13)
[2021-05-19] MEDS: pantoprazole DR 40 mg Tablet PO (09:13)
[2021-05-19] MEDS: amlodipine 10 mg Tablet 5 MG PO (09:14)
[2021-05-19 09:43] LABS: Vitamin B12 952 pg/mL (232-1245)
--- NOTE | 2021-05-19 09:55 | PC.CHAP ---
Pastoral Care Encounter/Spiritual Assessment Type of Contact [] Declined printing mechanist visit [] Patient/Family/Request visit [] Outpatient visit [] Follow-up visit [] Physician referral [] Code/Alert [x] Routine visit [] Staff referral [] Actively dying [] Patient sleeping [] Family support [] [] Out of room [] Palliative care [] [] Receiving care in room [] Pre-surgical visit [] Trauma [] Long length of stay [] ICU visit [] Other: Relational/Emotional Strength [x] Patient feels connected with others/family/visitors/staff [] Distress [] Loneliness/isolation [] Abandonment Spirituality of Patient [x] Person of Katerina [] Attends Orthodox of their Katerina [x] Believes in Prayer [] Reads Bible or Presybeterian materials [] There are Spiritual issues to be addressed Public Address System Operator Interventions [x] Prayer [x] Active listening [x] Non-anxious presence [x] Spiritual/emotional support [] Crisis/trauma care [] Spiritual counseling [] Bereavement support [] Provided bereavement packet [] Provided Bible/devotional materials [] Provided toy/stuffed animal, coloring book to patient or family member [] Provided Communion [] Anointing/[place] [] Salvation [x] Completed spiritual assessment [] Other: Impact on Illness or Injury [] Angry [] Fearful [] Anxious [] Often cries [] Exhaustion [] Unable to work [] Unable to attend advent [] Unable to walk/stand [] Unable to read [] Unable to drive [] Unable to eat/drink [] Unable to sleep [] Unable to be with family [] Patient intubated [] Other: Summary Pt complained her knee is hurting today and the pain meds are not making it go away. Pts son was present in room. She is the mother of three children. Her son lives in [facility] and her daughters live on the [place] [facility]. Pt lived on the [place] [facility] until two and a half years ago when she came to live with her son. After two years, she decided she needed a place of her own so moved to the area. Son describes his mother as independent and somewhat stubborn. :) He also describes her as a loner who get nervous around crowds so her grandchildren tend to make her nervous. Pt did attend [employer] before moving to [place] and printing mechanist could tell by the way she described it, she really enjoyed it. She has not attended [employer] since moving to [place]. Time spent with patient 15m
--- NOTE | 2021-05-19 10:50 | PM.PN ---
Subjective Subjective: History and physical was reviewed. Patient without any complaints. Confusion is still evident. Nurse has noted no focal weakness. Medications: Reviewed: Yes Vitals/I&O/Wt Last Vital Signs Temp 98.9 F 05/19/21 01:00 Pulse 63 05/19/21 07:01 Resp 16 05/19/21 06:22 BP 176/79 05/19/21 07:01 Pulse Ox 93 05/19/21 07:01 05/18/21 05/19/21 05/19/21 22:59 06:59 14:59 Intake Total 281.667 / 281.667 645 / 645 Balance 281.667 / 281.667 645 / 645 Weight last 48 hrs Weight 81.647 kg Physical Exam Narrative: General exam is a white female, no obvious distress Neurologic no focal findings, however unable to tell me the year, month. Is able to tell me birthdate, son's name Neck is supple no lymphadenopathy or thyromegaly Cardiovascular regular rate and rhythm, no murmur Lungs clear Abdomen is soft nontender positive bowel sounds Extremities no cyanosis clubbing or edema Skin no rash Data : 05/19/21 04:15 05/19/21 04:15 Micro: Microbiology 05/18/21 22:40 Legionella Urinary Antigen - Final Urine,Clean Catch Bacterial Antigens - Final 05/19/21 04:15 Blood Culture - Preliminary Blood SPECIMEN COLLECTED A&P Assessment and plan (1) Altered mental status: Confusion has not yet lifted Thought to be secondary to UTI Patent shunt with history of CVA/TIA in the past. CTA was negative for flow-limiting lesions. CT head no acute findings. I am not certain her confusion is secondary to UTI. Could consider effective tricyclic that was started on May 05 as well. If confusion does not improve throughout the day, MRI will be obtained of the head. TSH was checked and normal. Check B12. With acute illness, Covid PCR should be obtained as well. Status: Acute (2) UTI (urinary tract infection): Continue Rocephin Ensure urine culture was done. Initial urine demonstrated some squamous epithelial cells. Renal ultrasound was obtained. No obstruction. Status: Acute (3) TIA (transient ischemic attack): Patient with past history of TIA and CVA. Currently on Plavix. Continue currently. Continue statin Status: Acute Plan Hypomagnesemia, supplement. Multiple other medical problems as outlined in her past medical history. Full code Lovenox will suffice for DVT prophylaxis Attestations Medical Necessity Statement*: Needs continued hospital stay for evaluation of altered mental status which persist as well as treatment of UTI. Coding Level of Care Code Acute Welder Fitter Helper for [place]anderg Fwd Diagnoses Altered mental status R41.82 UTI (urinary tract infection) N39.0 TIA (transient ischemic attack) G45.9
[2021-05-19 15:39] LABS: Adenovirus Not Detected (NOT DETECT); Chlamydia Pneumoniae Not Detected (NOT DETECT); Coronavirus 229E,HKU1,NL63,OC4 Not Detected (NOT DETECT); Human Metapneumovirus Not Detected (NOT DETECT); Human Rhinovirus/Enterovirus Not Detected (NOT DETECT); Influenza A Not Detected (NOT DETECT); Influenza A H1 Not Detected (NOT DETECT); Influenza A H1-2009 Not Detected (NOT DETECT); Influenza A H3 Not Detected (NOT DETECT); Influenza B Not Detected (NOT DETECT); Mycoplasma Pneumoniae Not Detected (NOT DETECT); Parainfluenza Virus Type 1 Not Detected (NOT DETECT); Parainfluenza Virus Type 2 Not Detected (NOT DETECT); Parainfluenza Virus Type 3 Not Detected (NOT DETECT); Parainfluenza Virus Type 4 Not Detected (NOT DETECT); Respiratory Syncytial Virus A Not Detected (NOT DETECT); Respiratory Syncytial Virus B Not Detected (NOT DETECT); SARS-COV-2 Not Detected (NOT DETECT)
[2021-05-20] VITALS: BP 142/88; PULSE 80; RESP 17; TEMP 36.7; O2SAT 96
[2021-05-20] MEDS: cefTRIAXone 1,000 MG in sodium chloride 0.9% (plus) 100 ML 100 MG IV (02:19)
[2021-05-20] MEDS: enoxaparin 40 mg/0.4 mL Syringe SUBCUT (02:22)
[2021-05-20 04:00] VITALS: BP 138/82; PULSE 77; RESP 17; TEMP 36.7; O2SAT 95
[2021-05-20 05:52] LABS: Basophils % 0.4 %; Eosinophils # 0.3 10^3/uL (0.0-0.8); Eosinophils % 2.5 %; Hematocrit 39.6 % (37.0-47.0); Lymphocytes # 2.8 10^3/uL (0.8-4.8); Lymphocytes % 24.3 %; Mean Corpuscular HGB Conc 32.8 g/dL (30.0-36.0); Mean Corpuscular Hemoglobin 30.7 pg (28.0-34.0); Mean Corpuscular Volume 93.4 fl (81-99); Mean Platelet Volume 10.5 fL (7.4-10.4); Monocytes # 0.9 10^3/uL (0.2-0.9); Monocytes % 8.2 %; Neutrophils # 7.33 10^3/uL (1.8-7.7); Neutrophils % 64.2 %; Nucleated Red Blood Cells % 0 %; Platelet Count 279 10^3/cmm (130-400); Red Blood Count 4.24 10^6/uL (4.1-5.3); Red Cell Distribution Width 12.8 % (12.1-15.1); White Blood Count 11.4 10^3/uL (4.0-10.0)
[2021-05-20] MEDS: acetaminophen 325 mg Tablet 650 MG PO (05:55)
[2021-05-20] MEDS: dextrose 5%-sod chloride 0.9% 1,000 ML 75 ML IV (05:59)
[2021-05-20 06:00] VITALS: PULSE 83
[2021-05-20 06:08] LABS: Alanine Aminotransferase 13 U/L (0-33); Albumin Level 3.6 g/dL (3.5-5.2); Alkaline Phosphatase 118 IU/L (35-105); Anion Gap 17.3 (5-19); Aspartate Amino Transferase 15 U/L (0-32); Blood Urea Nitrogen 7 mg/dL (8-23); Calcium 9.4 mg/dL (8.5-10.5); Carbon Dioxide 20 mmol/L (22-29); Chloride 106 mmol/L (98-107); Globulin 2.8 g/dL (1.3-4.6); Glucose 111 mg/dL (65-115); Magnesium 1.6 mg/dL (1.7-2.3); Osmolality Calculated 289 mOsm/kg (285-295); Potassium 3.3 mmol/L (3.5-5.1); Sodium 140 mmol/L (136-145); Total Bilirubin 0.3 mg/dL (0.15-1.2); Total Protein 6.4 g/dL (6.6-8.7)
[2021-05-20 07:49] VITALS: O2SAT 91
[2021-05-20 08:00] VITALS: PULSE 85; RESP 18; TEMP 36.3; O2SAT 94
--- NOTE | 2021-05-20 08:10 | PC.NURSE ---
Patient stated that the blood preasure cuff was hurting and she pulled it off. she refused to let me try it again
--- NOTE | 2021-05-20 10:14 | PC.CHAP ---
Pastoral Care Encounter/Spiritual Assessment Type of Contact [] Declined clinic scheduler visit [] Patient/Family/Request visit [] Outpatient visit [] Follow-up visit [] Physician referral [] Code/Alert [] Routine visit [] Staff referral [] Actively dying [] Patient sleeping [] Family support [] [] Out of room [] Palliative care [] [] Receiving care in room [] Pre-surgical visit [] Trauma [] Long length of stay [] ICU visit [] Other: Relational/Emotional Strength [] Patient feels connected with others/family/visitors/staff [] Distress [] Loneliness/isolation [] Abandonment Spirituality of Patient [] Person of Katerina [] Attends Sabianism of their Katerina [] Believes in Prayer [] Reads Bible or Sikh materials [] There are Spiritual issues to be addressed Software Engineering Specialist Interventions [] Prayer [] Active listening [] Non-anxious presence [] Spiritual/emotional support [] Crisis/trauma care [] Spiritual counseling [] Bereavement support [] Provided bereavement packet [] Provided Bible/devotional materials [] Provided toy/stuffed animal, coloring book to patient or family member [] Provided Communion [] Anointing/[place] [] Salvation [] Completed spiritual assessment [] Other: Impact on Illness or Injury [] Angry [] Fearful [] Anxious [] Often cries [] Exhaustion [] Unable to work [] Unable to attend sabianism [] Unable to walk/stand [] Unable to read [] Unable to drive [] Unable to eat/drink [] Unable to sleep [] Unable to be with family [] Patient intubated [] Other: Summary Time spent with patient Pastoral Care Encounter/Spiritual Assessment Type of Contact [] Declined clinic scheduler visit [] Patient/Family/Request visit [] Outpatient visit [] Follow-up visit [] Physician referral [] Code/Alert [x] Routine visit [] Staff referral [] Actively dying [x] Patient sleeping [] Family support [] [] Out of room [] Palliative care [] [] Receiving care in room [] Pre-surgical visit [] Trauma [] Long length of stay [] ICU visit [] Other: Relational/Emotional Strength [] Patient feels connected with others/family/visitors/staff [] Distress [] Loneliness/isolation [] Abandonment Spirituality of Patient [] Person of Kaetrina [] Attends Sabianism of their Katerina [] Believes in Prayer [] Reads Bible or Sikh materials [] There are Spiritual issues to be addressed Software Engineering Specialist Interventions [] Prayer [] Active listening [] Non-anxious presence [] Spiritual/emotional support [] Crisis/trauma care [] Spiritual counseling [] Bereavement support [] Provided bereavement packet [] Provided Bible/devotional materials [] Provided toy/stuffed animal, coloring book to patient or family member [] Provided Communion [] Anointing/[place] [] Salvation [] Completed spiritual assessment [] Other: Impact on Illness or Injury [] Angry [] Fearful [] Anxious [] Often cries [] Exhaustion [] Unable to work [] Unable to attend sabianism [] Unable to walk/stand [] Unable to read [] Unable to drive [] Unable to eat/drink [] Unable to sleep [] Unable to be with family [] Patient intubated [] Other: Summary Time spent with patient
--- NOTE | 2021-05-20 11:40 | P.DS_ITS ---
Discharge Providers Date of Admission: 05/19/21 01:24 Date of Discharge: May 20, 2021 Attending Provider at Admission: Juan Lipscomb MD Attending Provider at Discharge: Socrates Cheek MD Primary Care Provider: Jose Rossi MD Diagnoses at Discharge Discharge Diagnosis (1) Altered mental status: Status: Acute (2) UTI (urinary tract infection): Status: Acute (3) TIA (transient ischemic attack): Status: Acute Reason for Visit Reason for Visit: AMS Hospital Course Hospital Course Bryce is a 75-year-old white female who presented to the hospital with confusion. Concern of UTI was present on admission, thought to contribute to her confusion. In talking with her family she may have some baseline mild confusion. She was given IV Rocephin. Other medications which could contribute to disorientation such as meclizine and amitriptyline were discontinued. By May 20, she was able to carry on a conversation appropriately. She knew the month and year. She was able to tell me the names of her family members, and her intention to go home. I talked with her son, who reported that they will be keeping a close eye on her at discharge and would like home health if possible. He also reports she is weak at times and home physical therapy will be useful. This will be arranged, and she will discharge today. He and the patient were both instructed to return for any worsening. Other studies well-done in the hospital included a CT head, showing no acute changes, head and neck CTA demonstrating no flow-limiting plaque, and normal TSH and B12. Physical Exam Narrative: General exam no distress Neck is supple Cardiovascular regular rate and rhythm without murmur Lungs clear Abdomen is soft Extremities no cyanosis clubbing or edema Neuro, no focal deficits. Currently not confused. Discharge Data Studies Completed and Pending Completed Studies During Hospitalization Category Date Time Status CT head wo con* [id number] Urgent Cat Scan 05/18/21 20:28 Completed CTA head neck [CT angio headneck* [id number]] Urgent Cat Scan 05/18/21 21:05 Completed XR chest 1V portable [id number] Urgent Exams 05/18/21 20:28 Completed XR knee RT 3V* [id number] Urgent Exams 05/18/21 21:00 Completed US renal BI* [id number] Urgent Ultrasound 05/19/21 01:24 Completed Pending at discharge Category Date Time Status Blood Culture Stat Lab 05/18/21 16:50 Results Magnesium AM LABS Lab 05/21/21 04:00 Ordered Sputum Culture and Gram Stain Stat Lab 05/18/21 23:02 Uncollected Urine Culture Routine Lab 05/19/21 08:24 Ordered Radiology Impressions Chest X-Ray 05/18/21 20:28 IMPRESSION: Bibasilar atelectasis versus pneumonia. Clinical correlation is recommended. Head CT 05/18/21 20:28 IMPRESSION: 1. No acute intracranial abnormality. 2. Moderate diffuse cerebral atrophy and sequela of chronic small vessel ischemic disease. Old lacunar infarcts within the basal ganglia and ninfa. Knee X-Ray 05/18/21 21:00 IMPRESSION: No acute injury. Head/Neck CTA 05/18/21 21:05 IMPRESSION: 1. No large vessel stenosis or occlusion. 2. No acute intracranial abnormality. IMPRESSION: No stenosis or occlusion. REFERENCES: NASCET CRITERIA. The degree of internal carotid artery stenosis is based on NASCET criteria. Normal is no stenosis. Mild is less than 50% stenosis. Moderate is 50-69% stenosis. Severe is 70% to 99% stenosis. Total occlusion is no detectable patent lumen. Renal Ultrasound 05/19/21 01:24 IMPRESSION: 1. Bilateral renal cysts as above described above. 2. No hydronephrosis. 3. No solid mass identified. LEFT kidney evaluation is limited. 4. Abdominal aortic aneurysm with a maximum diameter 4.4 cm. Laboratory Results WBC 11.4 10^3/uL (4.0-10.0) H 05/20/21 04:42 RBC 4.24 10^6/uL (4.1-5.3) 05/20/21 04:42 Hgb 13.0 g/dL (11.5-15.3) 05/20/21 04:42 Hct 39.6 % (37.0-47.0) 05/20/21 04:42 MCV 93.4 fl (81-99) 05/20/21 04:42 MCH 30.7 pg (28.0-34.0) 05/20/21 04:42 MCHC 32.8 g/dL (30.0-36.0) 05/20/21 04:42 RDW 12.8 % (12.1-15.1) 05/20/21 04:42 Plt Count 279 10^3/cmm (130-400) 05/20/21 04:42 MPV 10.5 fL (7.4-10.4) H 05/20/21 04:42 Neut % (Auto) 64.2 % 05/20/21 04:42 Lymph % (Auto) 24.3 % 05/20/21 04:42 [place] % (Auto) 8.2 % 05/20/21 04:42 Eos % (Auto) 2.5 % 05/20/21 04:42 Baso % (Auto) 0.4 % 05/20/21 04:42 Neut # (Auto) 7.33 10^3/uL (1.8-7.7) 05/20/21 04:42 Lymph # (Auto) 2.8 10^3/uL (0.8-4.8) 05/20/21 04:42 [place] # (Auto) 0.9 10^3/uL (0.2-0.9) 05/20/21 04:42 Eos # (Auto) 0.3 10^3/uL (0.0-0.8) 05/20/21 04:42 Baso # (Auto) 0.0 10^3/uL (0.0-0.1) 05/20/21 04:42 Nucleated RBC % (auto) 0 % 05/20/21 04:42 Nucleated RBCs # 0.0 /100WBC 05/20/21 04:42 Sodium 140 mmol/L (136-145) 05/20/21 04:42 Potassium 3.3 mmol/L (3.5-5.1) L 05/20/21 04:42 Chloride 106 mmol/L (98-107) 05/20/21 04:42 Carbon Dioxide 20 mmol/L (22-29) L 05/20/21 04:42 Anion Gap 17.3 (5-19) 05/20/21 04:42 BUN 7 mg/dL (8-23) L 05/20/21 04:42 Creatinine 0.7 mg/dL (0.5-0.9) 05/20/21 04:42 GFR Calculation Not Reportable 05/20/21 04:42 Glucose 111 mg/dL (65-115) 05/20/21 04:42 Calculated Osmolality 289 mOsm/kg (285-295) 05/20/21 04:42 Calcium 9.4 mg/dL (8.5-10.5) 05/20/21 04:42 Phosphorus 3.8 mg/dL (2.5-4.5) 05/19/21 04:15 Magnesium 1.6 mg/dL (1.7-2.3) L 05/20/21 04:42 Total Bilirubin 0.3 mg/dL (0.15-1.2) 05/20/21 04:42 AST 15 U/L (0-32) 05/20/21 04:42 ALT 13 U/L (0-33) 05/20/21 04:42 Alkaline Phosphatase 118 IU/L (35-105) H 05/20/21 04:42 Troponin T Baseline 10 ng/L (0-10) 05/18/21 20:47 Troponin T 120 Minute 14.41 ng/L (0-10) H 05/18/21 22:40 Delta Troponin T 4.41 ABS# (0-10) 05/18/21 22:40 C-Reactive Protein 13.2 mg/L (0.0-4.9) H 05/18/21 22:40 Total Protein 6.4 g/dL (6.6-8.7) L 05/20/21 04:42 Albumin 3.6 g/dL (3.5-5.2) 05/20/21 04:42 Globulin 2.8 g/dL (1.3-4.6) 05/20/21 04:42 Lipase 22 U/L (13-60) 05/18/21 20:47 Vitamin B12 952 pg/mL (232-1245) 05/19/21 04:15 Procalcitonin 0.05 ng/mL (0-0.5) 05/18/21 22:40 TSH 2.83 uIU/mL (0.27-4.20) 05/18/21 20:47 Free T4 1.24 ng/dL (0.82-1.77) 05/18/21 20:47 Urine Color Yellow (Yellow) 05/18/21 22:40 Urine Appearance Clear (CLEAR) 05/18/21 22:40 Urine pH 6 (5-7) 05/18/21 22:40 Ur Specific [place] 1.015 (1.005-1.030) 05/18/21 22:40 Urine Protein 2+ (Negative) H 05/18/21 22:40 Urine Glucose (UA) Norm (Normal) 05/18/21 22:40 Urine Ketones Negative (Negative) 05/18/21 22:40 Urine Blood Neg (Negative) 05/18/21 22:40 Urine Nitrate Positive (Negative) H 05/18/21 22:40 Urine Bilirubin Neg (Negative) 05/18/21 22:40 Urine Urobilinogen Norm mg/dL (Negative) 05/18/21 22:40 Ur Leukocyte Esterase 1+ (Negative) H 05/18/21 22:40 Urine RBC 0-4 /hpf (0-2) H 05/18/21 22:40 Urine WBC 55-80 /hpf (0-5) H 05/18/21 22:40 Ur Squamous Epith Cells 25-40 /hpf (0-5) H 05/18/21 22:40 Amorphous Sediment Not Reportable 05/18/21 22:40 Urine Bacteria 4+ /hpf (NONE) H 05/18/21 22:40 Salicylates < 0.3 mg/dL (3-10) L 05/18/21 20:47 Acetaminophen < 5.0 ug/mL (10-30) L 05/18/21 20:47 Coronavirus 229E (PCR) Not detected (NOT DETECT) 05/19/21 12:50 SARS-CoV-2 (PCR) Not detected (NOT DETECT) 05/19/21 12:50 Vitals Last Vital Signs Temp 97.4 F L 05/20/21 08:00 Pulse 85 05/20/21 08:00 Resp 18 05/20/21 08:00 BP 138/82 05/20/21 04:00 Pulse Ox 94 05/20/21 08:00 Discharge Plan Discharge Patient Disposition: Home Health Service Condition: Stable Prescriptions: New amlodipine 10 mg Tablet 5 mg PO DAILY Qty: 30 0RF cefdinir 300 mg capsule 300 mg PO BID 5 Days Qty: 10 0RF Continued vitamin E 200 unit capsule 400 unit PO DAILY 0RF ascorbate calcium (vitamin C) 500 mg tablet 500 mg PO DAILY 0RF (DME) DME: Walker Unit See Rx Instructions .Route Qty: 1 0RF Rx Instructions: Walker with seat and wheels denosumab 60 mg/mL syringe 60 mg SUBCUT ONCE 180 Days Qty: 1 2RF Rx Instructions: One injection every 6 months for 3 injections, bring to office for each injection. (pt states not had ext med history shows last filled 05/06/21) 340 B atorvastatin 80 mg tablet 80 mg PO DAILY Qty: 90 3RF clopidogrel [Plavix] 75 mg tablet 75 mg PO DAILY Qty: 90 2RF fenofibrate micronized 200 mg capsule 200 mg PO DAILY Qty: 90 3RF venlafaxine 75 mg capsule,extended release 24hr 75 mg PO DAILY Qty: 90 3RF Anoro Ellipta 62.5-25 mcg/actuation blister with device 1 inh inhalation DAILY 30 Days Qty: 60 5RF Rx Instructions: 340 B meds Bystolic 20 mg tablet 20 mg PO DAILY Qty: 90 3RF Rx Instructions: 340 B meds cholecalciferol (vitamin D3) [Vitamin D3] 25 mcg (1,000 unit) Capsule 25 mcg PO DAILY 0RF albuterol sulfate 90 mcg/actuation HFA aerosol inhaler 2 puff INHALATION Q6H PRN (Reason: Shortness Of Breath) 0RF multivitamin Tablet 1 tab PO DAILY 0RF Flonase 50 mcg/actuation [place],Suspension 1 spray INTRANASAL BID 0RF Rx Instructions: administer into each nostril potassium gluconate 595 mg (99 mg) Tablet 595 mg PO DAILY 0RF Nexium 40 mg capsule,delayed release(DR/EC) 40 mg PO DAILY 0RF Discontinued amitriptyline 25 mg tablet 25 mg PO DAILY Qty: 30 3RF meclizine 12.5 mg tablet 12.5 mg PO TID PRN (Reason: dizziness) Qty: 60 1RF amlodipine 10 mg tablet 10 mg PO DAILY 0RF Discharge Orders: Discharge Order (Routine); Ordered 05/20/21 Ordered By: Socrates Cheek Referrals: Jose Rossi MD [Primary Care Provider] - 4-7 days Discharge Diet: Cardiac Discharge Activity: Increase activity as tolerated Patient Instructions: Opioid Safety Activity Restrictions/Additional Instructions: Take all medicine as prescribed. Stop meclizine, amitriptyline Follow-up with your primary care provider 3 to 5 days Home health on discharge Make sure magnesium is given prior to discharge. Discharge Attestations Time Spent in Discharge Care*: greater than 30 min Status at Discharge: Cognitive status at discharge: cognitively intact , Behavioral status at discharge: cooperative , Quality Metrics Clinical Quality Measures [ No reported AMI, CVA or VTE this stay] Coding Level of Care Code Acute Chg FW DC note Diagnoses Altered mental status R41.82 UTI (urinary tract infection) N39.0 TIA (transient ischemic attack) G45.9
[2021-05-20] MEDS: cholecalciferol (vitamin D3) 1,000 unit Tablet 1000 UNIT PO (11:41)
[2021-05-20] MEDS: pantoprazole DR 40 mg Tablet PO (11:41)
[2021-05-20] MEDS: clopidogrel 75 mg Tablet PO (11:41)
[2021-05-20] MEDS: atorvastatin 40 mg Tablet 80 MG PO (11:41)
[2021-05-20] MEDS: amlodipine 10 mg Tablet 5 MG PO (11:42)
[2021-05-20] MEDS: venlafaxine ER (24HR) 75 mg Capsule PO (11:43)
[2021-05-20] MEDS: docusate sodium 100 mg Capsule PO (11:43)
[2021-05-20] MEDS: magnesium sulfate premix 2 GM/50 ML PIGGYBACK IV (11:45)
[2021-05-20 12:00] VITALS: BP 180/89; PULSE 81; RESP 18; TEMP 36.3; O2SAT 96
== END 2021-05-20 15:00 | disposition home health service (06) ==
LOC: ER 05-19 05:22 → ER IP 05-19 05:46 → MEDSURG 05-19 07:19 → ER IP 05-27 10:16 → MEDSURG 05-27 10:16
PROVIDERS: Admitting Provider Family Medicine; Emergency Provider Emergency Medicine; PCP Family Medicine Adult Medicine; Visit Provider Internal Medicine
DX: N39.0 Urinary tract infection, site not specified (principal); G45.9 Transient cerebral ischemic attack, unspecified; E83.42 Hypomagnesemia; Z79.02 Long term (current) use of antithrombotics/antiplatelets; I12.9 Hypertensive chronic kidney disease with stage 1 through stage 4 chronic kidney disease, or unspecified chronic kidney disease; N18.2 Chronic kidney disease, stage 2 (mild); F41.9 Anxiety disorder, unspecified; F32.9 Major depressive disorder, single episode, unspecified; K21.9 Gastro-esophageal reflux disease without esophagitis; J44.9 Chronic obstructive pulmonary disease, unspecified; M19.90 Unspecified osteoarthritis, unspecified site; M79.7 Fibromyalgia; M81.0 Age-related osteoporosis without current pathological fracture; F17.210 Nicotine dependence, cigarettes, uncomplicated; Z82.49 Family history of ischemic heart disease and other diseases of the circulatory system
CPT/HCPCS: 36415; 70450; 70496; 70498; 71045; 73562; 76770; 80053; 80307; 81001; 82607; 83690; 83735; 84100; 84145; 84439; 84443; 84484; 85025; 86140; 86403; 87040; 87449; 87635; 92523; 92610; 93005; 94664; 96365; 96367; 96372; 97161; 97165; 97530; 99285; C9113; G0378; J0696; J1650; J3475; J7030; J7040; Q9967

== ENCOUNTER 2021-06-02 16:44 | Inpatient (IN) | payer MEDICARE, MEDICAID, SELFPAY ==
[2021-06-02] VITALS (23 sets, daily range): BP systolic 130–195; BP diastolic 68–113; PULSE 79–91; RESP 17–40; TEMP 36.8–37.2; O2SAT 84–98; BMI 23.3
--- NOTE | 2021-06-02 16:51 | XRR_ITS ---
PROCEDURE INFORMATION: Exam: XR Chest Exam date and time: 06/02/2021 4:51 PM Age: 75 years old Clinical indication: Shortness of breath; Additional info: Dyspnea/cough TECHNIQUE: Imaging protocol: XR of the chest. Views: 1 view. COMPARISON: CR (CHEST, ) 05/18/2021 9:16 PM FINDINGS: Lungs: Interval development of right upper lobe, left lingular, and bilateral lower lobe airspace disease suspicious for pneumonia. Stable calcified granuloma in the the right upper lobe. Pleural spaces: No pleural effusion. No pneumothorax. Heart/Mediastinum: Stable mild enlargement of the cardiac silhouette. Mediastinal contours are unremarkable. Vasculature: Stable vascular calcifications in the aorta. Stable tortuosity of the aorta. Bones/joints: Unremarkable for age. XR/XR chest 1V portable [id number] IMPRESSION: 1. Interval development of right upper lobe, left lingular, and bilateral lower lobe airspace disease suspicious for pneumonia. Recommend followup chest imaging to insure resolution of these findings. 2. Incidental/nonacute findings are listed in the report.
--- NOTE | 2021-06-02 16:51 | ECG_ITS ---
[facility] Test Date: 2021-06-02 Pat Name: Bryce Schmidt Department: Room: Gender: Female [employer] Kil[employer] Operator: : [id number] Requested By: Chinmay Mccall Order Number: [id number] Del MD: Yulisa Lam M.D. Measurements Intervals [place] Rate: 80 P: 25 HI: 156 QRS: -8 QRSD: 96 T: 40 QT: 400 QTc: 464 Interpretive Statements SINUS RHYTHM POSSIBLE LEFT ATRIAL ENLARGEMENT [-0.1mV P-WAVE IN V1/V2] Compared to ECG 05/18/2021 22:10:59 T-wave abnormality no longer present Electronically Signed On 06-02-2021 20:41:26 PLATE GRAIN[employer] APPRENTICE by Yulisa Lam M.D. [email or web address]
--- NOTE | 2021-06-02 17:03 | ED_ITS ---
HPI - SOB/Dyspnea General: Chief Complaint: Shortness of Breath/Dyspnea Stated Complaint: POSSIBLE UTI Time Seen by Provider: 06/02/21 16:51 History of Present Illness: HPI Narrative: 75-year-old female was recently dismissed from the hospitalFor altered mental status UTI and TIA. She not been seen for the last couple of days by her family and they found her today in bed she had not been getting up or getting around EMS was called she was found to be at 85% overhears on room air. She is encephalopathic on arrival here mumbles a few thing tells that she is good to the bathroom but otherwise is not able to give any significant history on 6 L by nasal cannula as she is still satting only 86%. To switching to a mask she can desat in the low 90s. She was then switched to BiPAP. On BiPAP she is satting in the upper 90s. EMS reports that she was short of breath and also noted of a cough prior to arrival here. EMS reported right-sided weakness however on arrival here she has no deficits MD elicited complaint: shortness of breath and cough Onset (ago): unknown Timing: constant Severity: severe Exacerbating factors: nothing Relieving factors: nothing Associated symptoms: Reports cough Treatment prior to arrival: oxygen and bronchodilator Review of Systems General: Reports: ROS unobtainable due to medical condition and ROS unobtainable due to mental status [facility] ED PFSH: Medical History Chronic right shoulder pain Chronic tension headaches CKD (chronic kidney disease) stage 2, GFR 60-89 ml/min COPD (chronic obstructive pulmonary disease) Depression with anxiety Dizziness and giddiness Dyslipidemia Dysuria Essential hypertension Fall Fibromyalgia GERD (gastroesophageal reflux disease) HTN (hypertension), benign IBS (irritable bowel syndrome) Incontinence Obesity (BMI 30-39.9) Osteoporosis TIA (transient ischemic attack) Surgical History H/O hemorrhoidectomy H/O: hysterectomy History of appendectomy History of cholecystectomy History of repair of hip fracture History of tonsillectomy Family History Other CAD (coronary artery disease) Cancer Hypertension Social History (Reviewed 06/03/21 @ 05:15 by PATY Shen Smoking and tobacco status: current every day smoker cigarettes Packs smoked per day: 1.5 Years cigarettes smoked: 60 Second hand smoke exposure: Yes Smoking risk assessment/counseling performed?: Yes Alcohol intake: current Alcohol intake frequency: holidays/special occasions only Alcohol type: beer Desire information about alcohol rehabilitation?: No Counseling given: No Desire information about substance/drug rehabilitation?: No Counseling given: No Lives independently: Yes Household members: none Marital status: Current occupational status: retired History of recent travel: No Current gender identity: Female Physical Exam HENMT: COMMON NORMALS: normocephalic and atraumatic HEAD & SCALP: normocephalic and atraumatic Resp: EFFORT & INSPECTION: Yes tachypneic, Yes labored and Yes uses accessory muscles AUSCULTATION: rales Cardio: COMMON NORMALS: regular rhythm and No murmurs present (Cardio) RHYTHM: regular rhythm GI: COMMON NORMALS: Soft to palpation and No hepatosplenomegaly present AUSCULTATION: Yes normoactive bowel sounds PALPATION: Yes Soft to palpation, No Tenderness to palpation present (GI), No Guarding due to palpation present (GI) and Yes No hepatosplenomegaly present Extremity: COMMON NORMALS: normal to inspection, capillary refill normal, no clubbing, cyanosis or edema, no calf tenderness and no pedal edema Neuro: OTHER: No focal neurologic deficits Skin: COMMON NORMALS: no rashes or lesions noted GENERAL SKIN EXAM: no rashes or lesions noted Course Vital Signs: Vital signs: Vital Signs Temperature 98.5 F 06/03/21 00:00 Pulse Rate 84 06/03/21 03:43 Respiratory Rate 29 H 06/03/21 02:31 Blood Pressure 159/108 06/03/21 02:31 Pulse Oximetry 95 06/03/21 03:43 MDM - SOB/Dyspnea Medical Decision Making Multilobar pneumonia with acute respiratory failure. She is improved with BiPAP start triple antibiotic therapy because of her recent hospitalization. Screen for COVID. Patient was reported to have had right-sided weakness symptoms however these resolved on arrival here she has no neuro deficits. Discussed with hospitalist orders written Lab Data : 06/03/21 03:46 06/03/21 03:46 Labs/Radiology: Radiology Impressions Chest X-Ray 06/02/21 16:51 IMPRESSION: 1. Interval development of right upper lobe, left lingular, and bilateral lower lobe airspace disease suspicious for pneumonia. Recommend followup chest imaging to insure resolution of these findings. 2. Incidental/nonacute findings are listed in the report. Chest CTA 06/02/21 20:52 IMPRESSION: 1. Negative for pulmonary embolism. 2. Widespread nonspecific ground-glass airspace disease throughout the lungs. Features of advanced emphysema. COMMENTS: Consistent with the [place] [employer]'s Incidental Findings Committee white paper (J Am Masha Radiol 2018): Any incidental renal lesion less than 1 cm or classified as too small to characterize, or any incidental cystic renal lesion characterized as simple-appearing, is likely benign. No follow-up imaging is recommended for these lesions per consensus recommendations based on imaging criteria. Laboratory Results WBC 9.1 10^3/uL (4.0-10.0) 06/02/21 17:05 RBC 4.43 10^6/uL (4.1-5.3) 06/02/21 17:05 Hgb 13.7 g/dL (11.5-15.3) 06/02/21 17:05 Hct 38.8 % (37.0-47.0) 06/02/21 17:05 MCV 87.6 fl (81-99) 06/02/21 17:05 MCH 30.9 pg (28.0-34.0) 06/02/21 17:05 MCHC 35.3 g/dL (30.0-36.0) 06/02/21 17:05 RDW 12.7 % (12.1-15.1) 06/02/21 17:05 Plt Count 281 10^3/cmm (130-400) 06/02/21 17:05 MPV 9.8 fL (7.4-10.4) 06/02/21 17:05 Neut % (Auto) 83.4 % 06/02/21 17:05 Lymph % (Auto) 9.9 % 06/02/21 17:05 [place] % (Auto) 5.5 % 06/02/21 17:05 Eos % (Auto) 0.0 % 06/02/21 17:05 Baso % (Auto) 0.2 % 06/02/21 17:05 Neut # (Auto) 7.59 10^3/uL (1.8-7.7) 06/02/21 17:05 Lymph # (Auto) 0.9 10^3/uL (0.8-4.8) 06/02/21 17:05 [place] # (Auto) 0.5 10^3/uL (0.2-0.9) 06/02/21 17:05 Eos # (Auto) 0.0 10^3/uL (0.0-0.8) 06/02/21 17:05 Baso # (Auto) 0.0 10^3/uL (0.0-0.1) 06/02/21 17:05 Nucleated RBC % (auto) 0 % 06/02/21 17:05 Nucleated RBCs # 0.0 /100WBC 06/02/21 17:05 D-Dimer 1.64 ug/mIFEU (0-0.59) H 06/02/21 17:05 Specimen Type Arterial 06/02/21 17:06 Sample Site Brachial, left 06/02/21 17:06 ABG pH 7.46 (7.35-7.45) H 06/02/21 17:06 ABG pCO2 35.7 mmHg (35-45) 06/02/21 17:06 ABG pO2 85.3 mmHg (80.0-100.0) 06/02/21 17:06 ABG HCO3 25.3 mmol/L (22-26) 06/02/21 17:06 ABG O2 Saturation 97.2 06/02/21 17:06 ABG Base Excess 1.7 mmol/L (-2.0-2.0) 06/02/21 17:06 [place]andel Test Pos 06/02/21 17:06 A-a O2 Gradient 48.0 mmHg (5-10) H 06/02/21 17:06 Hematocrit 42.5 % (37-47) 06/02/21 17:06 Hgb O2 Saturation 96.1 % (95-100) 06/02/21 17:06 Carboxyhemoglobin 0.9 %THgb (0.4-20.1) 06/02/21 17:06 Methemoglobin 0.2 % (0.4-1.5) L 06/02/21 17:06 Total Hemoglobin 13.9 g/dL (12-16) 06/02/21 17:06 Sodium 138.0 mmol/L (131-143) 06/02/21 17:06 Potassium 3.6 mmol/L (3.5-5.0) 06/02/21 17:06 Glucose 139.0 mg/dL (70-115) H 06/02/21 17:06 Ionized Calcium Not Reportable 06/02/21 17:06 O2 Delivery Device Bipap 06/02/21 17:06 FiO2 70.0 % 06/02/21 17:06 Wheel Truer ID [place] 06/02/21 17:06 Sodium 135 mmol/L (136-145) L 06/02/21 17:05 Potassium 3.8 mmol/L (3.5-5.1) 06/02/21 17:05 Chloride 98 mmol/L (98-107) 06/02/21 17:05 Carbon Dioxide 22 mmol/L (22-29) 06/02/21 17:05 Anion Gap 18.8 (5-19) 06/02/21 17:05 BUN 20 mg/dL (8-23) 06/02/21 17:05 Creatinine 0.7 mg/dL (0.5-0.9) 06/02/21 17:05 GFR Calculation Not Reportable 06/02/21 17:05 Glucose 133 mg/dL (65-115) H 06/02/21 17:05 Calculated Osmolality 285 mOsm/kg (285-295) 06/02/21 17:05 Lactic Acid 2.0 mmol/L (0.5-2.2) 06/02/21 17:05 Calcium 9.2 mg/dL (8.5-10.5) 06/02/21 17:05 Total Bilirubin 0.6 mg/dL (0.15-1.2) 06/02/21 17:05 AST 59 U/L (0-32) H 06/02/21 17:05 ALT 15 U/L (0-33) 06/02/21 17:05 Alkaline Phosphatase 119 IU/L (35-105) H 06/02/21 17:05 Creatine Kinase 165 U/L (26-192) 06/02/21 17:05 NT-Pro-B Natriuret Pep 1113 pg/mL (0-125) H 06/02/21 17:05 Total Protein 7.3 g/dL (6.6-8.7) 06/02/21 17:05 Albumin 3.3 g/dL (3.5-5.2) L 06/02/21 17:05 Globulin 4.0 g/dL (1.3-4.6) 06/02/21 17:05 Procalcitonin 0.07 ng/mL (0-0.5) 06/02/21 17:05 Serum Ketones Negative (Negative) 06/02/21 17:05 Discharge Plan Discharge Patient Disposition: Admitted As Inpatient Admit Provider: Roel Del Rio Clinical Impression: Hospital-acquired pneumonia, CKD (chronic kidney disease) stage 2, GFR 60-89 ml/min, UTI (urinary tract infection), COPD (chronic obstructive pulmonary disease), TIA (transient ischemic attack) Condition: Stable Coding Level of Care Code ED R D Engineer for Chg Fwd Exam Detailed
[2021-06-02 17:16] LABS: Basophils % 0.2 %; Hematocrit 38.8 % (37.0-47.0); Hemoglobin 13.7 g/dL (11.5-15.3); Lymphocytes # 0.9 10^3/uL (0.8-4.8); Lymphocytes % 9.9 %; Mean Corpuscular HGB Conc 35.3 g/dL (30.0-36.0); Mean Corpuscular Hemoglobin 30.9 pg (28.0-34.0); Mean Corpuscular Volume 87.6 fl (81-99); Mean Platelet Volume 9.8 fL (7.4-10.4); Monocytes # 0.5 10^3/uL (0.2-0.9); Monocytes % 5.5 %; Neutrophils # 7.59 10^3/uL (1.8-7.7); Neutrophils % 83.4 %; Nucleated Red Blood Cells % 0 %; Platelet Count 281 10^3/cmm (130-400); Red Blood Count 4.43 10^6/uL (4.1-5.3); Red Cell Distribution Width 12.7 % (12.1-15.1); White Blood Count 9.1 10^3/uL (4.0-10.0)
[2021-06-02 17:18] LABS: ABG PCO2 35.7 mmHg (35-45); ABG PH Result 7.46 (7.35-7.45); Arterial Blood Gas Hematocrit 42.5 % (37-47); Base Excess ABG 1.7 mmol/L (-2.0-2.0); Blood Gas Allen Test Pos; Blood Gas Sample Type Arterial; Carboxyhemoglobin 0.9 %THgb (0.4-20.1); HCO3 ABG 25.3 mmol/L (22-26); HGB O2 Sat 96.1 % (95-100); Methemoglobin 0.2 % (0.4-1.5); Oxygen Saturation ABG 97.2; PO2 ABG 85.3 mmHg (80.0-100.0); Potassium Level - ABG 3.6 mmol/L (3.5-5.0); Total Hemoglobin 13.9 g/dL (12-16)
[2021-06-02 17:19] LABS: Blood Gas Operator Identificat MONRO; Blood Gas Sample Site Brachial, left; Oxygen Device BIPAP
[2021-06-02 17:28] LABS: Ketone (Acetest) Serum Negative (Negative)
[2021-06-02] MEDS: piperacillin-tazobactam 3.375 GM in sodium chloride 0.9% (plus) 50 ML IV (17:35)
[2021-06-02 17:45] LABS: Alanine Aminotransferase 15 U/L (0-33); Albumin Level 3.3 g/dL (3.5-5.2); Alkaline Phosphatase 119 IU/L (35-105); Blood Urea Nitrogen 20 mg/dL (8-23); Calcium 9.2 mg/dL (8.5-10.5); Carbon Dioxide 22 mmol/L (22-29); Chloride 98 mmol/L (98-107); Creatine Phosphokinase 165 U/L (26-192); Glucose 133 mg/dL (65-115); Osmolality Calculated 285 mOsm/kg (285-295); Sodium 135 mmol/L (136-145); Total Bilirubin 0.6 mg/dL (0.15-1.2); Total Protein 7.3 g/dL (6.6-8.7)
[2021-06-02 17:50] LABS: Anion Gap 18.8 (5-19); Aspartate Amino Transferase 59 U/L (0-32); Potassium 3.8 mmol/L (3.5-5.1)
[2021-06-02] MEDS: ondansetron 2 mg/ML SDV 2 mL 4 MG IVP (17:50)
[2021-06-02] MEDS: lactated ringers 1,000 ML 999 ML IV ×2 (17:53→19:34)
[2021-06-02] MEDS: vancomycin 1,000 MG in sodium chloride 0.9% 250 ML 250 MG IV (17:53)
--- NOTE | 2021-06-02 17:53 | PM.HP ---
Providers/Chief Complaint Primary Care Provider: Jose Rossi MD Chief Complaint: POSSIBLE UTI History of Present Illness Bryce Schmidt is a 75 year old female who was recently discharged from the hospital after management of confusion related to UTI and possible TIA, presenting to the hospital after another episode of confusion. Patient is stating that she is not sure for how long she was confused for however her son found her today and called EMS. When EMS arrived she was hypoxic in low 80s, she was put on supplemental oxygen and required BiPAP in the ER. In the ER she was diagnosed with bilateral pneumonia, I have requested Covid PCR and CTA chest. She is hypertensive, does not meet sepsis criteria, she was not confused at all at the time of my interview, she was on BiPAP settings 12/6 FiO2 45%. Blood pressure 188/94 mmHg. She was given vancomycin, Zosyn and Levaquin for hospital-acquired pneumonia regimen. 1 L LR given with the antibiotics. Left a voicemail to her son awaiting callback Patient is denying chest pain, recent diarrhea, weakness of her arms or legs, she does have central cooling in her home, denying use of fire wood. She was able to move all of her extremities, no strokelike features. She asked for a nurse to use bedside commode Review of Systems Const: Reports: chills and body aches Eyes: Denies: change in vision ENMT: Denies: throat pain Card: Reports: dyspnea on exertion and orthopnea; Denies: chest pain Resp: Reports: dyspnea GI: Denies: abdominal pain : Reports: urinary frequency; Denies: flank pain Musc: Denies: neck pain Skin/Breast: Denies: rash Neuro: Denies: headache(s) Psych: Denies: anxiety Endo: Denies: polyuria Parrish/Lymph: Denies: easy bruising All/Imm: Denies: urticaria Medications/Allergies Home Medications Medication Instructions Recorded Confirmed Last Taken Type ascorbate calcium (vitamin C) 500 500 mg PO DAILY 12/26/19 06/02/21 05/04/20 History mg tablet vitamin E 200 unit capsule 400 unit PO DAILY 12/26/19 06/02/21 05/04/20 History cholecalciferol (vitamin D3) 25 25 mcg PO DAILY 05/05/20 06/02/21 05/04/20 History mcg (1,000 unit) capsule (Vitamin D3) DME: Giovanni #1 ea 08/07/20 06/02/21 Unknown Rx umeclidinium 62.5 mcg-vilanterol 1 inh INHALATION DAILY 30 Days #60 02/06/21 06/02/21 Unknown Rx 25 mcg/actuation powdr for ea inhalation (Anoro Ellipta) atorvastatin 80 mg tablet 80 mg PO DAILY #90 tab 05/05/21 06/02/21 Unknown Rx clopidogrel 75 mg tablet (Plavix) 75 mg PO DAILY #90 tab 05/05/21 06/02/21 Unknown Rx fenofibrate micronized 200 mg 200 mg PO DAILY #90 cap 05/05/21 06/02/21 Unknown Rx capsule venlafaxine 75 mg capsule,extended 75 mg PO DAILY #90 cap 05/05/21 06/02/21 Unknown Rx release 24 hr Bystolic 20 mg tablet (nebivolol) 20 mg PO DAILY #90 tab NS 05/12/21 06/02/21 Unknown Rx albuterol sulfate 90 mcg/actuation 2 puff INHALATION Q6H PRN 05/19/21 06/02/21 Unknown History aerosol inhaler esomeprazole magnesium 40 mg 40 mg PO DAILY 05/19/21 06/02/21 Unknown History capsule,delayed release (Nexium) fluticasone propionate 50 1 spray INTRANASAL BID 05/19/21 06/02/21 Unknown History mcg/actuation nasal spray,suspension multivitamin 1 tab PO DAILY 05/19/21 06/02/21 Unknown History potassium gluconate 595 mg (99 mg) 595 mg PO DAILY 05/19/21 06/02/21 Unknown History tablet amlodipine 10 mg tablet 5 mg PO DAILY #30 tab 05/20/21 06/02/21 Unknown Rx denosumab 60 mg/mL subcutaneous 60 mg SUBCUT Q180D 06/02/21 06/02/21 Unknown History syringe Allergies Allergy/AdvReac Type Severity Reaction Status Date / Time alprazolam [From Xanax] AdvReac Mild i pass Verified 05/19/21 08:24 out clonidine AdvReac Mild memory loss Verified 05/19/21 08:24 codeine AdvReac Mild unknown Verified 05/19/21 08:24 duloxetine [From Cymbalta] AdvReac Mild insomnia Verified 05/19/21 08:24 levetiracetam AdvReac Mild depression Verified 05/19/21 08:24 metformin AdvReac Mild diarrhea Verified 05/19/21 08:24 valsartan [From Diovan] AdvReac Mild unknown Verified 05/19/21 08:24 PFSH Acute PFSH: Medical History Chronic right shoulder pain Chronic tension headaches CKD (chronic kidney disease) stage 2, GFR 60-89 ml/min COPD (chronic obstructive pulmonary disease) Depression with anxiety Dizziness and giddiness Dyslipidemia Dysuria Essential hypertension Fall Fibromyalgia GERD (gastroesophageal reflux disease) HTN (hypertension), benign IBS (irritable bowel syndrome) Incontinence Obesity (BMI 30-39.9) Osteoporosis TIA (transient ischemic attack) Surgical History H/O hemorrhoidectomy H/O: hysterectomy History of appendectomy History of cholecystectomy History of repair of hip fracture History of tonsillectomy Family History Other CAD (coronary artery disease) Cancer Hypertension Social History Smoking and tobacco status: current every day smoker cigarettes Packs smoked per day: 1.5 Years cigarettes smoked: 60 Second hand smoke exposure: Yes Smoking risk assessment/counseling performed?: Yes Alcohol intake: current Alcohol intake frequency: holidays/special occasions only Alcohol type: beer Desire information about alcohol rehabilitation?: No Counseling given: No Desire information about substance/drug rehabilitation?: No Counseling given: No Lives independently: Yes Household members: none Marital status: Current occupational status: retired History of recent travel: No Current gender identity: Female Vitals/I&O/Wt Last Vital Signs Temp 98.2 F 06/02/21 16:50 Pulse 85 06/02/21 17:24 Resp 24 H 06/02/21 16:50 BP 195/109 06/02/21 16:50 Pulse Ox 98 06/02/21 17:24 Weight last 48 hrs Weight 63.503 kg Physical Exam Narrative: elderly female Awake and alert Does not look dehydrated or fluid overloaded Was on BiPAP settings 12/6 FiO2 45% Saturating 98% Hypertensive Bilateral assisted breath sounds with rhonchi and crackles Abdomen distended normal tender, no signs of peritonitis Lower extremity no edema She is awake and alert I do not appreciate any focal deficits Family not at the bedside She was able to answer my questions appropriately She did not appear anxious at all She wanted to get up and use bedside commode Data : 06/02/21 17:05 06/02/21 17:05 A&P Assessment and plan (1) Hospital-acquired pneumonia: Status: Acute (2) Hypoxia: Status: Acute (3) TIA (transient ischemic attack): Status: Acute (4) GERD (gastroesophageal reflux disease): Status: Acute (5) CKD (chronic kidney disease) stage 2, GFR 60-89 ml/min: Status: Acute (6) Hypertensive urgency: Status: Acute Plan Hypoxia related to hospital-acquired pneumonia Currently on BiPAP FiO2 45% She does not show any active worsening of her breathing She can be safely weaned down from BiPAP to nonrebreather or nasal cannula Respiratory to assess and treat Continue DuoNeb, add steroids I will add duo antipseudomonal and MRSA coverage, check MRSA PCR No active signs of sepsis She is full code Check procalcitonin, urine antigen, sputum culture Stat CTA chest, Covid PCR Recent TIA continue antiplatelet therapy Hypertensive urgency: Added lisinopril to her bystolic, increasing dose of amlodipine to 10 mg, Full code Cardiac diet DVT prophylaxis Lovenox Urinary frequency, UA is pending Awaiting callback from her son, left a voicemail Attestations Medical Necessity Statement*: Anticipating more than 2 midnights Time Spent in Patient Care: 35mins Coding Level of Care Code Acute Superintendent Meters for [facility] Diagnoses Hospital-acquired pneumonia J18.9; Y95 Hypoxia R09.02 TIA (transient ischemic attack) G45.9 GERD (gastroesophageal reflux disease) K21.9 CKD (chronic kidney disease) stage 2, GFR 60-89 ml/min N18.2 Hypertensive urgency I16.0
[2021-06-02 17:55] LABS: NT Pro B Type Natriuretic Pept 1113 pg/mL (0-125)
[2021-06-02 18:52] LABS: Add Urine Microscopic? YES; Bilirubin Urine Neg (Negative); Blood Urine Neg (Negative); Glucose Urine UA Norm (Normal); Ketones Urine Negative (Negative); Leukocyte Esterase Urine Negative (Negative); Nitrate Urine Negative (Negative); Protein Urine 3+ (Negative); Urine Appearance SL Hazy (CLEAR); Urine Color Yellow (Yellow); Urobilinogen Urine 1 mg/dL (Negative); pH Urine 5 (5-7)
[2021-06-02 19:01] LABS: Procalcitonin 0.07 ng/mL (0-0.5)
[2021-06-02 19:04] LABS: Add Urine Culture? Yes; Bacteria Urine 4+ /hpf; Squamous Epithelial Cell Urine 0-4 /hpf (0-5); WBC Urine 0-4 /hpf (0-5)
[2021-06-02 19:24] LABS: D Dimer 1.64 ug/mIFEU (0-0.59)
[2021-06-02] MEDS: levofloxacin-dextrose 5 % 750 MG/150 ML PREMIX 100 MG IV (19:31)
--- NOTE | 2021-06-02 20:52 | CTR_ITS ---
PROCEDURE INFORMATION: Exam: CTA Chest With Contrast Exam date and time: 06/02/2021 8:52 PM Age: 75 years old Clinical indication: Shortness of breath; Patient HX: Hypoxia covid + TECHNIQUE: Imaging protocol: Computed tomographic angiography of the chest with contrast. 3D rendering (Not supervised by radiologist): MIP and/or 3D reconstructed images were created by the technologist. Radiation optimization: All CT scans at this facility use at least one of these dose optimization techniques: automated exposure control; mA and/or kV adjustment per patient size (includes targeted exams where dose is matched to clinical indication); or iterative reconstruction. Contrast material: OMNI 350; Contrast volume: 50 ml; Contrast route: INTRAVENOUS (IV); COMPARISON: CR XR chest 1V portable [id number] 06/02/2021 4:57 PM RADIATION DOSE METRICS: Total DLP (mGy-cm): 883.77 FINDINGS: Pulmonary arteries: Normal. No pulmonary emboli. Aorta: Diffuse atherosclerosis of the thoracic aorta. Negative for thoracic aorta aneurysm. No dissection. There may be a small penetrating ulcer on the underside of the distal aortic arch. No evidence of intramural hematoma. Lungs: Severe emphysematous lung changes. Fairly widespread ground-glass parenchymal changes of the lung parenchyma. Negative for endobronchial obstruction. Pleural spaces: Unremarkable. No pneumothorax. No pleural effusion. Heart: Unremarkable. No cardiomegaly. No pericardial effusion. Lymph nodes: Unremarkable. No enlarged lymph nodes. Liver: Small simple right lobe liver cysts. Kidneys and ureters: Bilateral renal cortical cystic changes are noted but incompletely assessed. Several lesions are hyperdense in appearance. Stomach and bowel: Thick-walled appearance of included proximal stomach, although the stomach is nondistended and this is of uncertain significance. Bones/joints: Unremarkable. No acute fracture. Soft tissues: Unremarkable. CT/CT angio chest PE protcl [id number] IMPRESSION: 1. Negative for pulmonary embolism. 2. Widespread nonspecific ground-glass airspace disease throughout the lungs. Features of advanced emphysema. COMMENTS: Consistent with the [employer]'s Incidental Findings Committee white paper (J Am Masha Radiol 2018): Any incidental renal lesion less than 1 cm or classified as too small to characterize, or any incidental cystic renal lesion characterized as simple-appearing, is likely benign. No follow-up imaging is recommended for these lesions per consensus recommendations based on imaging criteria.
[2021-06-02 21:06] LABS: Adenovirus Not Detected (NOT DETECT); Chlamydia Pneumoniae Not Detected (NOT DETECT); Coronavirus 229E,HKU1,NL63,OC4 Not Detected (NOT DETECT); Human Metapneumovirus Not Detected (NOT DETECT); Human Rhinovirus/Enterovirus Not Detected (NOT DETECT); Influenza A Not Detected (NOT DETECT); Influenza A H1 Not Detected (NOT DETECT); Influenza A H1-2009 Not Detected (NOT DETECT); Influenza A H3 Not Detected (NOT DETECT); Influenza B Not Detected (NOT DETECT); Mycoplasma Pneumoniae Not Detected (NOT DETECT); Parainfluenza Virus Type 1 Not Detected (NOT DETECT); Parainfluenza Virus Type 2 Not Detected (NOT DETECT); Parainfluenza Virus Type 3 Not Detected (NOT DETECT); Parainfluenza Virus Type 4 Not Detected (NOT DETECT); Respiratory Syncytial Virus A Not Detected (NOT DETECT); Respiratory Syncytial Virus B Not Detected (NOT DETECT); SARS-COV-2 Detected (NOT DETECT)
[2021-06-02 21:28] LABS: Glucose Point of Care 125 mg/dL (70-110)
[2021-06-02] MEDS: cefepime 1,000 MG in sodium chloride 0.9% (plus) 50 ML 100 MG IV (21:28)
[2021-06-02] MEDS: enoxaparin 40 mg/0.4 mL Syringe SUBCUT (21:28)
--- NOTE | 2021-06-02 21:45 | PC.PHAR ---
Pharmacokinetic dosing service Date: 06/02/21 Time: 2144 Objective: Patient: Bryce Stone Floor: ICU-4 Age: 75 yo Serum creatinine: 0.7 mg/dL Height: 65.0 Inches Weight (kg): 63.503 Diagnosis: Relevant medical/social history: Cultures and sensitivities: Other labs: Assessment: IBW (kg): 61.50 Dosing wt(kg): 63.503 Estimated Creatinine clearance (ml/min): 81.8 CRCL method: Cockcroft and Gault using ibw(default). Drug selected: Vancomycin Loading dose (mg): 0 Vd (liters): 57.2 (factor used: 0.9 L/kg) Jose (hr-1): 0.072 Half life (hrs): 9.63 Recommended dose: 1000 mg Interval: 12 hrs Infusion time (hrs): 1.5 Predicted peak (mcg/mL): 28.6 Predicted trough (mcg/mL): 13.43 Total body weight is being used for vancomycin dosing. Renal function is stable [ ] /unstable [ ] Recommendations: Give Vancomycin 1000 mg q 12 hrs with an expected Cpeak of 28.6 mcg/ml and an expected Ctrough of 13.43 mcg/ml Renal dosing of other antibiotics (review renal dosing of other medications and list guidelines here): Thank you for the consult, will continue to follow. Signature: Bing Martin [facility]
[2021-06-02] MEDS: bumetanide 0.25 mg/mL SDV 10 mL 1 MG IVP (22:11)
--- NOTE | 2021-06-02 23:43 | PC.NURSE ---
On Unit Patient transferred to unit via stretcher. Clothing with patient and placed bedside. No other belongings noted. All vitals stable.
[2021-06-03] VITALS (42 sets, daily range): BP systolic 123–219; BP diastolic 62–108; PULSE 74–94; RESP 16–41; TEMP 36.8–37.3; O2SAT 86–97; BMI 27.5
[2021-06-03] MEDS: iohexol 350 mg/mL 100 mL Btl IV (00:49)
--- NOTE | 2021-06-03 01:05 | PC.NURSE ---
CT Patient taken for CTA at this time. Two RN utilized in transfer. Patient placed on 15 L nonrebreather for duration of trip. All vitals remained stable, patient tolerated well.
[2021-06-03] MEDS: piperacillin-tazobactam 3.375 GM in sodium chloride 0.9% (plus) 50 ML IV ×2 (01:10→10:15)
[2021-06-03 03:57] LABS: Basophils % 0.1 %; Hematocrit 36.2 % (37.0-47.0); Hemoglobin 12.6 g/dL (11.5-15.3); Lymphocytes # 0.6 10^3/uL (0.8-4.8); Lymphocytes % 7.1 %; Mean Corpuscular HGB Conc 34.8 g/dL (30.0-36.0); Mean Corpuscular Hemoglobin 30.7 pg (28.0-34.0); Mean Corpuscular Volume 88.1 fl (81-99); Mean Platelet Volume 9.6 fL (7.4-10.4); Monocytes # 0.2 10^3/uL (0.2-0.9); Monocytes % 2.6 %; Neutrophils # 7.42 10^3/uL (1.8-7.7); Neutrophils % 89.2 %; Nucleated Red Blood Cells % 0 %; Platelet Count 269 10^3/cmm (130-400); Red Blood Count 4.11 10^6/uL (4.1-5.3); Red Cell Distribution Width 12.7 % (12.1-15.1); White Blood Count 8.3 10^3/uL (4.0-10.0)
[2021-06-03 04:21] LABS: Anion Gap 17.4 (5-19); Blood Urea Nitrogen 17 mg/dL (8-23); C Reactive Protein 172.2 mg/L (0.0-4.9); Calcium 9.3 mg/dL (8.5-10.5); Carbon Dioxide 25 mmol/L (22-29); Chloride 99 mmol/L (98-107); Glucose 140 mg/dL (65-115); Magnesium 1.5 mg/dL (1.7-2.3); Osmolality Calculated 290 mOsm/kg (285-295); Potassium 3.4 mmol/L (3.5-5.1); Sodium 138 mmol/L (136-145)
[2021-06-03 04:50] LABS: ABG PCO2 37.8 mmHg (35-45); ABG PH Result 7.47 (7.35-7.45); Arterial Blood Gas Hematocrit 39.1 % (37-47); Base Excess ABG 3.5 mmol/L (-2.0-2.0); Blood Gas Allen Test Pos; Blood Gas Operator Identificat JB; Blood Gas Sample Site Brachial, right; Blood Gas Sample Type Arterial; HCO3 ABG 27.3 mmol/L (22-26); Oxygen Device BIPAP; PO2 ABG 60.6 mmHg (80.0-100.0)
[2021-06-03] MEDS: vancomycin 1,000 MG in sodium chloride 0.9% 250 ML 250 MG IV ×2 (05:33→18:17)
[2021-06-03 07:46] LABS: Glucose Point of Care 138 mg/dL (70-110)
[2021-06-03] MEDS: ipratropium-albuterol 3 mL Neb INHALATION ×3 (08:50→20:11)
[2021-06-03] MEDS: remdesivir 200 MG in sodium chloride 0.9% (100 ml) 60 ML 100 MG IV (09:37)
[2021-06-03] MEDS: cefepime 1,000 MG in sodium chloride 0.9% (plus) 50 ML 100 MG IV ×2 (09:38→21:07)
[2021-06-03] MEDS: hydroCHLOROthiazide 25 mg Tablet 12.5 MG PO ×2 (09:45→10:12)
[2021-06-03] MEDS: ascorbic acid 500 mg Tablet PO (09:48)
[2021-06-03] MEDS: amlodipine 10 mg Tablet PO (09:48)
[2021-06-03] MEDS: sennosides-docusate Tablet 1 TAB PO (09:48)
[2021-06-03] MEDS: cholecalciferol (vitamin D3) 1,000 unit Tablet 1000 UNIT PO (09:48)
[2021-06-03] MEDS: lisinopril 10 mg Tablet PO (09:48)
[2021-06-03] MEDS: clopidogrel 75 mg Tablet PO (09:48)
[2021-06-03] MEDS: atorvastatin 40 mg Tablet 80 MG PO (09:48)
[2021-06-03] MEDS: enoxaparin 30 mg/0.3 mL Syringe SUBCUT ×2 (09:49→19:51)
--- NOTE | 2021-06-03 10:00 | PC.NURSE ---
MAR delay related to extensive care of other critical patient.
[2021-06-03] MEDS: dexamethasone 10 mg/mL INJ IVP (10:11)
--- NOTE | 2021-06-03 10:35 | PC.CHAP ---
Pastoral Care Encounter/Spiritual Assessment Type of Contact [] Declined foot press operator visit [] Patient/Family/Request visit [] Outpatient visit [] Follow-up visit [] Physician referral [] Code/Alert [x] Routine visit [] Staff referral [] Actively dying [x] Patient sleeping [] Family support [] [] Out of room [] Palliative care [] [] Receiving care in room [] Pre-surgical visit [] Trauma [] Long length of stay [x] ICU visit [x] Other: oxg Relational/Emotional Strength [] Patient feels connected with others/family/visitors/staff [] Distress [] Loneliness/isolation [] Abandonment Spirituality of Patient [] Person of Katerina [] Attends Lutheran of their Katerina [] Believes in Prayer [] Reads Bible or Yazdanism materials [] There are Spiritual issues to be addressed Rocket Motor Tester Interventions [x] Prayer [] Active listening [] Non-anxious presence [] Spiritual/emotional support [] Crisis/trauma care [] Spiritual counseling [] Bereavement support [] Provided bereavement packet [] Provided Bible/devotional materials [] Provided toy/stuffed animal, coloring book to patient or family member [] Provided Communion [] Anointing/[place] [] Salvation [x] Completed spiritual assessment [] Other: Impact on Illness or Injury [] Angry [] Fearful [] Anxious [] Often cries [] Exhaustion [] Unable to work [] Unable to attend sikhism [] Unable to walk/stand [] Unable to read [] Unable to drive [] Unable to eat/drink [] Unable to sleep [] Unable to be with family [] Patient intubated [] Other: Summary Time spent with patient
--- NOTE | 2021-06-03 10:37 | P.PN_ITS ---
Subjective Subjective: No overnight events Afebrile COVID-19 positive start remdesivir and Decadron No signs of PE Asked RT to remove BiPAP and put her on high flow nasal cannula currently on BiPAP settings 03/18, FiO2 50% Vitals/I&O/Wt Last Vital Signs Temp 99.1 F 06/03/21 04:00 Pulse 84 06/03/21 10:03 Resp 21 H 06/03/21 10:03 BP 166/107 06/03/21 06:30 Pulse Ox 88 L 06/03/21 10:03 06/02/21 06/03/21 06/03/21 22:59 06:59 14:59 Intake Total 1350 / 1350 390 / 1740 300 / 300 Output Total 1875 / 1885 Balance 1340 / 1340 -1485 / -145 300 / 300 Weight last 48 hrs Weight 74.979 kg Weight 63.503 kg Physical Exam Narrative: Patient clinically looks dehydrated Awake and alert Mentation improved Nonfocal neuro exam Laying supine Assisted bilateral breath sounds Abdomen soft No signs of edema EOMI, PERRLA Clinical signs of dehydration Appropriate mood and affect Urinary Catheter Management: Klein: Cath Placed During This Visit: yes Reason for Continuing Indwelling Catheter: Accurate Measurement of Urinary Outp ut in Critically Ill Patients Urinary Catheter Date of Insertion: 06/02/21 Urinary Catheter Time of Insertion: 18:25 Data : 06/03/21 03:46 06/03/21 03:46 Micro: Microbiology 06/02/21 18:27 Bacterial Antigens - Final Urine,Voided 06/02/21 18:27 Legionella Urinary Antigen - Final Urine Catheterized 06/02/21 17:25 Blood Culture - Preliminary Blood SPECIMEN COLLECTED 06/02/21 17:25 Blood Culture - Preliminary Blood SPECIMEN COLLECTED A&P Assessment and plan (1) Hypertensive urgency: Status: Acute (2) Hypoxia: Status: Acute (3) Hospital-acquired pneumonia: Status: Acute (4) COVID-19: Status: Acute (5) Depression with anxiety: Status: Acute (6) GERD (gastroesophageal reflux disease): Status: Acute (7) HTN (hypertension), benign: Status: Acute (8) COPD (chronic obstructive pulmonary disease): Status: Acute Plan COVID-19 related pneumonia Concern for hospital-acquired superimposed bacterial infection I will discontinue double antipseudomonal coverage, MRSA PCR is pending Plan to de-escalate antibiotics in next 48 hours if she stays afebrile Wean off BiPAP to heated high flow RT notified No signs of PE Recent signs of TIA, continue antiplatelet therapy, will keep on DVT prophylaxis 30 mg of Lovenox every 12 hours Procalcitonin unremarkable Urine antigens pending Hypertensive urgency: Optimize antihypertensive regimen, added lisinopril and hydrochlorothiazide, Awaiting urine cultures for bacteriuria however no pyuria noted Full code Cardiac diet Attestations Medical Necessity Statement*: Can be transferred out of ICU if ICU bed is needed Time Spent in Patient Care: 20min Coding Level of Care Code Acute Network Pricing Consultant for [facility] Fwd Diagnoses Hypertensive urgency I16.0 Hypoxia R09.02 Hospital-acquired pneumonia J18.9; Y95 COVID-19 U07.1 Depression with anxiety F41.8 GERD (gastroesophageal reflux disease) K21.9 HTN (hypertension), benign I10 COPD (chronic obstructive pulmonary disease) J44.9
[2021-06-03 12:36] LABS: Glucose Point of Care 198 mg/dL (70-110)
[2021-06-03] MEDS: labetalol 5 mg/mL SDV 20mL IVP (12:52)
[2021-06-03] MEDS: insulin lispro 100 unit/1 mL SUBCUT (12:52)
--- NOTE | 2021-06-03 14:39 | PC.RESP ---
RT Shift Note Frequent safety and respiratory rounds continue. Orders completed as indicated. Patient monitored pre and post treatments throughout shift. Patient [Did.] tolerate treatments appropriately. Condition [.DidNotChange]. Patient and/or motor vehicle representative educated on respiratory treatment and medications. Patient and/or motor vehicle representative [unable to comprehend]. Will continue to monitor patient progress.
--- NOTE | 2021-06-03 14:42 | PC.RESP ---
RT Shift Note Frequent safety and respiratory rounds continue. Orders completed as indicated. Patient monitored pre and post treatments throughout shift. Patient [Did.] tolerate treatments appropriately. Condition .DidNotChange]. Patient and/or dealer compliance representative educated on respiratory treatment and medications. Patient and/or dealer compliance representative [reinforcement needed]. Will continue to monitor patient progress.
[2021-06-03 16:10] LABS: Bacillus cereus group Not Detected (NOT DETECT); Bacillus subtillis group Not Detected (NOT DETECT); Corynebacterium Not Detected (NOT DETECT); Cutibacterium acnes (P.acnes) Not Detected (NOT DETECT); Enterococcus Not Detected (NOT DETECT); Enterococcus faecalis Not Detected (NOT DETECT); Enterococcus faecium Not Detected (NOT DETECT); Lactobacillus species Not Detected (NOT DETECT); Listeria Not Detected (NOT DETECT); Listeria monocytogenes Not Detected (NOT DETECT); Micrococcus Not Detected (NOT DETECT); Pan Candida Not Detected (NOT DETECT); Pan Gram-Negative Not Detected (NOT DETECT); Staphylococcus epidermidis Not Detected (NOT DETECT); Staphylococcus lugdunensis Not Detected (NOT DETECT); Staphylococcus species Not Detected (NOT DETECT); Streptococcus agalactiae Not Detected (NOT DETECT); Streptococcus anginosus group Not Detected (NOT DETECT); Streptococcus pneumoniae Not Detected (NOT DETECT); Streptococcus pyogenes Not Detected (NOT DETECT); Streptococcus species Detected (NOT DETECT)
[2021-06-03 18:30] LABS: Glucose Point of Care 120 mg/dL (70-110)
--- NOTE | 2021-06-03 19:10 | PC.NURSE ---
Shift Note; Pt alert to self and situation. She becomes uncooperative if staff moves too fast around her, other gutierrez pleasant and cooperative. She has switched from BiPap to HHF today. Her Heated high flow is 45liter and 100%. Her hair is so soft and fine the HHF straps slides off frequently. She has picked at her meals and drank very little liquids today. Urine output of 450ml noted this shift HEr daughter and son came in, looked through the window and spoke to her on the phone. DPOA paper work brought in today. Frequent safety and comfort rounds continue. Orders and/or nursing care completed as indicated. Patient monitored for response to intervention and treatment(s). Education provided includes Remdesivir, zosyn and vancomycin. Patient and/or manufacturers representative verbalized understanding of plan of care and medications. Will continue to monitor.
[2021-06-03 21:20] LABS: Glucose Point of Care 146 mg/dL (70-110)
[2021-06-04] VITALS (38 sets, daily range): BP systolic 103–176; BP diastolic 52–98; PULSE 23–104; RESP 18–32; TEMP 36.7–36.9; O2SAT 77–98; BMI 27.3
[2021-06-04] MEDS: ipratropium-albuterol 3 mL Neb INHALATION ×4 (03:27→20:35)
[2021-06-04] MEDS: amlodipine 5 mg Tablet 10 MG PO (03:35)
[2021-06-04 04:42] LABS: Basophils % 0.1 %; Hematocrit 36.9 % (37.0-47.0); Hemoglobin 12.9 g/dL (11.5-15.3); Lymphocytes # 0.8 10^3/uL (0.8-4.8); Lymphocytes % 3.9 %; Mean Corpuscular Hemoglobin 30.2 pg (28.0-34.0); Mean Corpuscular Volume 86.4 fl (81-99); Monocytes # 0.6 10^3/uL (0.2-0.9); Neutrophils # 18.08 10^3/uL (1.8-7.7); Neutrophils % 92.3 %; Nucleated Red Blood Cells % 0 %; Platelet Count 361 10^3/cmm (130-400); Red Blood Count 4.27 10^6/uL (4.1-5.3); Red Cell Distribution Width 12.5 % (12.1-15.1); White Blood Count 19.6 10^3/uL (4.0-10.0)
[2021-06-04] MEDS: remdesivir 100 MG in sodium chloride 0.9% (100 ml) 100 ML IV (04:48)
--- NOTE | 2021-06-04 04:57 | PC.NURSE ---
Shift Note Frequent safety and comfort rounds continue. Orders and/or nursing care completed as indicated. Patient monitored for response to intervention and treatment(s). Education provided includes BIPAP. Patient needs further reinforcement teaching. Patient remains on BIPAP 60%, no wounds/skin issues noted at this time. Klein catheter drained 350 mls of urine overnight and Remdesivir is infusing, please see MAR for infusion rate. Patient remains oriented to self and place but is confused about time. Will continue to monitor.
[2021-06-04 04:59] LABS: Anion Gap 15.1 (5-19); Blood Urea Nitrogen 25 mg/dL (8-23); Calcium 9.6 mg/dL (8.5-10.5); Carbon Dioxide 26 mmol/L (22-29); Chloride 100 mmol/L (98-107); Glucose 126 mg/dL (65-115); Osmolality Calculated 292 mOsm/kg (285-295); Potassium 3.1 mmol/L (3.5-5.1); Sodium 138 mmol/L (136-145)
[2021-06-04 05:29] LABS: ABG PCO2 38.1 mmHg (35-45); ABG PH Result 7.47 (7.35-7.45); Arterial Blood Gas Hematocrit 38.1 % (37-47); Base Excess ABG 3.6 mmol/L (-2.0-2.0); Blood Gas Allen Test Pos; Blood Gas Sample Type Arterial; HCO3 ABG 27.4 mmol/L (22-26)
[2021-06-04 05:30] LABS: Blood Gas Operator Identificat JB; Blood Gas Sample Site Brachial, right; Oxygen Device BIPAP
[2021-06-04] MEDS: vancomycin 1,000 MG in sodium chloride 0.9% 250 ML 250 MG IV ×2 (05:54→19:21)
[2021-06-04] MEDS: dexamethasone 10 mg/mL INJ 6 MG IVP (05:59)
[2021-06-04 07:36] LABS: Glucose Point of Care 147 mg/dL (70-110)
--- NOTE | 2021-06-04 08:00 | PC.NURSE ---
Pt up to chair at bedside, 2 assist.
[2021-06-04] MEDS: enoxaparin 30 mg/0.3 mL Syringe SUBCUT ×2 (08:33→19:21)
[2021-06-04] MEDS: insulin lispro 100 unit/1 mL SUBCUT ×2 (08:33→12:09)
[2021-06-04] MEDS: acetaminophen 500 mg Tablet PO (08:36)
[2021-06-04] MEDS: cholecalciferol (vitamin D3) 1,000 unit Tablet 1000 UNIT PO (08:36)
[2021-06-04] MEDS: lisinopril 10 mg Tablet PO ×2 (08:36→11:33)
[2021-06-04] MEDS: hydroCHLOROthiazide 25 mg Tablet 12.5 MG PO (08:36)
[2021-06-04] MEDS: amlodipine 10 mg Tablet PO (08:36)
[2021-06-04] MEDS: sennosides-docusate Tablet 1 TAB PO (08:36)
[2021-06-04] MEDS: atorvastatin 40 mg Tablet 80 MG PO (08:37)
[2021-06-04] MEDS: clopidogrel 75 mg Tablet PO (08:37)
[2021-06-04] MEDS: ascorbic acid 500 mg Tablet PO (08:37)
[2021-06-04 09:16] LABS: Bacillus cereus group Not Detected (NOT DETECT); Bacillus subtillis group Not Detected (NOT DETECT); Corynebacterium Not Detected (NOT DETECT); Cutibacterium acnes (P.acnes) Not Detected (NOT DETECT); Enterococcus Not Detected (NOT DETECT); Enterococcus faecalis Not Detected (NOT DETECT); Enterococcus faecium Not Detected (NOT DETECT); Lactobacillus species Not Detected (NOT DETECT); Listeria Not Detected (NOT DETECT); Listeria monocytogenes Not Detected (NOT DETECT); Micrococcus Not Detected (NOT DETECT); Pan Candida Not Detected (NOT DETECT); Pan Gram-Negative Not Detected (NOT DETECT); Staphylococcus epidermidis Detected (NOT DETECT); Staphylococcus lugdunensis Not Detected (NOT DETECT); Staphylococcus species Detected (NOT DETECT); Streptococcus agalactiae Not Detected (NOT DETECT); Streptococcus anginosus group Not Detected (NOT DETECT); Streptococcus pneumoniae Not Detected (NOT DETECT); Streptococcus pyogenes Not Detected (NOT DETECT); Streptococcus species Detected (NOT DETECT); mecA Detected (NOT DETECT); mecC Not Detected (NOT DETECT)
[2021-06-04] MEDS: cefepime 1,000 MG in sodium chloride 0.9% (plus) 50 ML 100 MG IV ×2 (09:35→21:58)
--- NOTE | 2021-06-04 10:20 | PC.CHAP ---
Pastoral Care Encounter/Spiritual Assessment Type of Contact [] Declined supervisor drying and winding visit [] Patient/Family/Request visit [] Outpatient visit [] Follow-up visit [] Physician referral [] Code/Alert [x] Routine visit [] Staff referral [] Actively dying [] Patient sleeping [] Family support [] [] Out of room [] Palliative care [] [] Receiving care in room [] Pre-surgical visit [] Trauma [] Long length of stay [x] ICU visit [] Other: Relational/Emotional Strength [] Patient feels connected with others/family/visitors/staff [] Distress [] Loneliness/isolation [] Abandonment Spirituality of Patient [] Person of Katerina [] Attends Jewish of their Katerina [] Believes in Prayer [] Reads Bible or Yarsanism materials [] There are Spiritual issues to be addressed Staff Respiratory Therapist Interventions [x] Prayer [] Active listening [] Non-anxious presence [] Spiritual/emotional support [] Crisis/trauma care [] Spiritual counseling [] Bereavement support [] Provided bereavement packet [] Provided Bible/devotional materials [] Provided toy/stuffed animal, coloring book to patient or family member [] Provided Communion [] Anointing/[place] [] Salvation [x] Completed spiritual assessment [] Other: Impact on Illness or Injury [] Angry [] Fearful [] Anxious [] Often cries [] Exhaustion [] Unable to work [] Unable to attend confucianism [] Unable to walk/stand [] Unable to read [] Unable to drive [] Unable to eat/drink [] Unable to sleep [] Unable to be with family [] Patient intubated [] Other: Summary Time spent with patient
--- NOTE | 2021-06-04 10:56 | P.PN_ITS ---
Subjective Subjective: Patient this morning was concerned about her dogs and she is anxious to return home however she still requiring BiPAP overnight FiO2 60% She has not been very cooperative, flattening with the nursing staff to get rid of BiPAP and heated high flow nasal cannula Arranging video call with the daughter If that does not help relieve her symptoms, we will use Precedex Vitals/I&O/Wt Last Vital Signs Temp 98.4 F 06/04/21 04:00 Pulse 88 06/04/21 08:23 Resp 30 H 06/04/21 08:23 BP 169/86 06/04/21 06:00 Pulse Ox 87 L 06/04/21 08:23 06/03/21 06/04/21 06/04/21 22:59 06:59 14:59 Intake Total 450 / 1280 300 / 1580 550 / 550 Output Total 450 / 450 350 / 800 Balance 0 / 830 -50 / 780 550 / 550 Weight last 48 hrs Weight 74.446 kg Weight 74.979 kg Weight 63.503 kg Physical Exam Narrative: Patient looks euvolemic On BiPAP when I examined her Has been very aggressive with the nursing staff when we were trying to put on heated high flow Able to understand my questions however she seems very concerned about her dogs Nonfocal neuro exam FiO2 60% Looks euvolemic Bilateral assisted breath sounds Abdomen soft Looks slightly dehydrated Urinary Catheter Management: Klein: Cath Placed During This Visit: yes Reason for Continuing Indwelling Catheter: Accurate Measurement of Urinary Output in Critically Ill Patients Urinary Catheter Date of Insertion: 06/02/21 Urinary Catheter Time of Insertion: 18:25 Data : 06/04/21 04:23 06/04/21 04:23 Micro: Microbiology 06/02/21 18:27 Urine Culture - Preliminary Urine,Clean Catch Enterococcus species 06/02/21 17:25 Blood Culture - Preliminary Blood Streptococcus species 06/02/21 17:25 Blood Culture - Preliminary Blood Streptococcus species 06/02/21 18:53 MRSA Culture - Final Nose 06/02/21 18:27 Bacterial Antigens - Final Urine,Voided A&P Assessment and plan (1) COVID-19: Status: Acute (2) Hypertensive urgency: Status: Acute (3) Hypoxia: Status: Acute (4) Hospital-acquired pneumonia: Status: Acute (5) UTI (urinary tract infection): Status: Acute (6) Chronic tension headaches: Status: Acute (7) CKD (chronic kidney disease) stage 2, GFR 60-89 ml/min: Status: Acute (8) IBS (irritable bowel syndrome): Status: Acute (9) Obesity (BMI 30-39.9): Status: Acute Plan COVID-19 related hypoxia Agitation related to COVID-19 and UTI Urine culture growing Enterococcus, blood culture positive for Streptococcus, I would continue her cefepime and vancomycin for now she has been afebrile, noticed leukocytosis Family has been updated Daughter stated that she has a living will which states DNR/DNI however patient is stating that she is full code, I would honor wishes of Ms. Schmidt and keep her full code for now Precedex for agitation Switch between BiPAP and heated high flow Hypokalemia: Repleted Check mag level Full code CT unremarkable for PE Currently on cardiac diet Hypertensive urgency: Blood pressure has improved however systolic has not been below 140s, increased dose of lisinopril we do not have bystolic, add metoprolol Attestations Medical Necessity Statement*: Continue ICU monitoring Time Spent in Patient Care: 25min Coding Level of Care Code Acute [employer] Salesperson for [employer] Fwd Diagnoses COVID-19 U07.1 Hypertensive urgency I16.0 Hypoxia R09.02 Hospital-acquired pneumonia J18.9; Y95 UTI (urinary tract infection) N39.0 Chronic tension headaches G44.229 CKD (chronic kidney disease) stage 2, GFR 60-89 ml/min N18.2 IBS (irritable bowel syndrome) K58.9 Obesity (BMI 30-39.9) E66.9
--- NOTE | 2021-06-04 11:09 | PC.NURSE ---
Pt has repeatedly pulled off the heated high flow cannula. This nurse attempted to reapplied, it had been torn apart. Put it back to together temporarily until RT could be notified, Pt started hitting this nurse. Explained to pt the consequences of not wearing O2, she refused to let it be put back on. RT notified of torn cannula. Dr Del Rio notified of pt's resistance to care and hitting staff. To call family per Notified Pt's daughter that she keeps pulling O2 off and is hitting staff. Family, in town, coming in to talk with pt. Orders for Lesly received.
[2021-06-04] MEDS: lidocaine 1% 5 ML in potassium chloride premix 100 ML 25 ML IV (11:23)
[2021-06-04] MEDS: ziprasidone 20 mg/mL SDV 10 MG IM (11:35)
--- NOTE | 2021-06-04 12:00 | PC.NURSE ---
Pt drowsy. Assisted her with 2 assist back to bed.
[2021-06-04 13:48] LABS: Glucose Point of Care 217 mg/dL (70-110)
--- NOTE | 2021-06-04 15:09 | PC.NURSE ---
NIBP modular failure, noon to now. BioMEd here now, it is repaired. B/P resumed
--- NOTE | 2021-06-04 17:45 | PC.NURSE ---
Pt up to chair for evening meal. Pt less steady at tis transfer
--- NOTE | 2021-06-04 18:21 | PC.NURSE ---
Vancomycin administration waiting on vanc trough, Lab coming to draw.
--- NOTE | 2021-06-04 18:38 | PC.NURSE ---
Shift Note Pt up to chair at bedside twice this shift. She was aggressive to staff around lunch, Geodon admin. She had been pulling of her O2 and hitting staff who tried to reapply it. HEr family came in to talk with her via window and telephone. She has since calmed down. Her O2 has decreased to 35 liters and 70% today , she remains on heated high flow. She is 1+ to 2 assist for transfers. She has ate better today than yesterday but still picking. She has had 450 ml urine output. Frequent safety and comfort rounds continue. Orders and/or nursing care completed as indicated. Patient monitored for response to intervention and treatment(s). Education provided includes Geodon, Potassium ad Lisinopril. Patient and/or national sales representative verbalizes understanding of continued worley of care and medications.. Will continue to monitor.
[2021-06-04 18:58] LABS: Vancomycin Trough 18.1 ug/mL (10-15)
[2021-06-04 19:35] LABS: Glucose Point of Care 100 mg/dL (70-110)
[2021-06-04] MEDS: metoprolol tartrate 25 mg Tablet PO (21:58)
[2021-06-04 22:19] LABS: Glucose Point of Care 121 mg/dL (70-110)
[2021-06-04] MEDS: morphine 4 mg/mL SDV 1 mL 2 MG IVP (22:43)
[2021-06-05] VITALS (32 sets, daily range): BP systolic 100–186; BP diastolic 61–136; PULSE 79–119; RESP 18–40; TEMP 36.7–37.7; O2SAT 84–99; BMI 26.9
[2021-06-05] MEDS: ipratropium-albuterol 3 mL Neb INHALATION ×4 (02:06→20:57)
[2021-06-05 04:02] LABS: Basophils % 0.1 %; Hematocrit 35.6 % (37.0-47.0); Hemoglobin 12.6 g/dL (11.5-15.3); Lymphocytes # 0.9 10^3/uL (0.8-4.8); Lymphocytes % 4.1 %; Mean Corpuscular HGB Conc 35.4 g/dL (30.0-36.0); Mean Corpuscular Volume 87.7 fl (81-99); Monocytes # 0.5 10^3/uL (0.2-0.9); Monocytes % 2.3 %; Neutrophils # 19.79 10^3/uL (1.8-7.7); Neutrophils % 92.3 %; Nucleated Red Blood Cells % 0 %; Platelet Count 356 10^3/cmm (130-400); Red Blood Count 4.06 10^6/uL (4.1-5.3); White Blood Count 21.4 10^3/uL (4.0-10.0)
[2021-06-05 04:20] LABS: Anion Gap 14.2 (5-19); Blood Urea Nitrogen 32 mg/dL (8-23); Calcium 9.9 mg/dL (8.5-10.5); Carbon Dioxide 24 mmol/L (22-29); Chloride 102 mmol/L (98-107); Glucose 100 mg/dL (65-115); Osmolality Calculated 291 mOsm/kg (285-295); Potassium 3.2 mmol/L (3.5-5.1); Sodium 137 mmol/L (136-145)
[2021-06-05 04:23] LABS: Magnesium 1.9 mg/dL (1.7-2.3)
[2021-06-05 04:37] LABS: ABG PCO2 40.8 mmHg (35-45); ABG PH Result 7.43 (7.35-7.45); Base Excess ABG 2.8 mmol/L (-2.0-2.0); Blood Gas Sample Site Brachial, right; Blood Gas Sample Type Arterial; HCO3 ABG 27.3 mmol/L (22-26); Oxygen Device BIPAP
[2021-06-05] MEDS: remdesivir 100 MG in sodium chloride 0.9% (100 ml) 100 ML IV (05:17)
[2021-06-05] MEDS: vancomycin 1,000 MG in sodium chloride 0.9% 250 ML 250 MG IV (05:17)
--- NOTE | 2021-06-05 05:59 | PC.NURSE ---
Shift Note Patient had an uneventful shift, she remains on BIPAP at 85% FiO2 and has no wounds/skin issues. Remains confused at times and removes BIPAP mask, frequently reoriented patient to surroundings and need for BIPAP. Klein catheter drained 400 mls of urine overnight. Remdesivir and Vancomycin are infusing, please see MAR for infusion rates.
[2021-06-05] MEDS: enoxaparin 30 mg/0.3 mL Syringe SUBCUT ×2 (06:34→20:00)
[2021-06-05] MEDS: dexamethasone 10 mg/mL INJ 6 MG IVP (06:35)
[2021-06-05] MEDS: morphine 4 mg/mL SDV 1 mL 2 MG IVP (06:35)
[2021-06-05 07:48] LABS: Glucose Point of Care 104 mg/dL (70-110)
[2021-06-05] MEDS: ascorbic acid 500 mg Tablet PO (09:37)
[2021-06-05] MEDS: hydroCHLOROthiazide 25 mg Tablet 12.5 MG PO (09:37)
[2021-06-05] MEDS: cholecalciferol (vitamin D3) 1,000 unit Tablet 1000 UNIT PO (09:37)
[2021-06-05] MEDS: clopidogrel 75 mg Tablet PO (09:37)
[2021-06-05] MEDS: atorvastatin 40 mg Tablet 80 MG PO (09:38)
[2021-06-05] MEDS: lisinopril 10 mg Tablet 40 MG PO (09:38)
[2021-06-05] MEDS: amlodipine 10 mg Tablet PO (09:38)
[2021-06-05] MEDS: metoprolol tartrate 25 mg Tablet PO ×2 (09:38→20:00)
[2021-06-05] MEDS: sennosides-docusate Tablet 1 TAB PO (09:38)
--- NOTE | 2021-06-05 10:09 | PC.CHAP ---
Pastoral Care Encounter/Spiritual Assessment Type of Contact [] Declined program supervisor visit [] Patient/Family/Request visit [] Outpatient visit [] Follow-up visit [] Physician referral [] Code/Alert [x] Routine visit [] Staff referral [] Actively dying [] Patient sleeping [] Family support [] [] Out of room [] Palliative care [] [x] Receiving care in room [] Pre-surgical visit [] Trauma [] Long length of stay [x] ICU visit [] Other: Relational/Emotional Strength [] Patient feels connected with others/family/visitors/staff [] Distress [] Loneliness/isolation [] Abandonment Spirituality of Patient [] Person of Katerina [] Attends Shinto of their Katerina [] Believes in Prayer [] Reads Bible or Catholic materials [] There are Spiritual issues to be addressed Programmer Or Analyst Interventions [x] Prayer [] Active listening [] Non-anxious presence [] Spiritual/emotional support [] Crisis/trauma care [] Spiritual counseling [] Bereavement support [] Provided bereavement packet [] Provided Bible/devotional materials [] Provided toy/stuffed animal, coloring book to patient or family member [] Provided Communion [] Anointing/[place] [] Salvation [x] Completed spiritual assessment [] Other: Impact on Illness or Injury [] Angry [] Fearful [] Anxious [] Often cries [] Exhaustion [] Unable to work [] Unable to attend latter-day [] Unable to walk/stand [] Unable to read [] Unable to drive [] Unable to eat/drink [] Unable to sleep [] Unable to be with family [] Patient intubated [] Other: Summary Time spent with patient
[2021-06-05] MEDS: cefepime 1,000 MG in sodium chloride 0.9% (plus) 50 ML 100 MG IV ×2 (10:11→21:20)
[2021-06-05] MEDS: dexmedeTOMIDine 0.9 % NaCL 400 MCG/100 ML PREMIX IV (10:11)
--- NOTE | 2021-06-05 11:00 | PC.NURSE ---
Per DPOA , pt's daughter, Zulema Vasquez: only herself and Farrukh Weathers (pt's son) to receive info on phone. If any other family calls refer them to Zulema or Farrukh.
[2021-06-05 12:00] LABS: Glucose Point of Care 162 mg/dL (70-110)
--- NOTE | 2021-06-05 12:05 | PC.SOCIAL ---
IMM update IMM updated with patient's daughter and son as patient isn't alert and orientated at this time. Copy Pg 2 provided. Verbalized an understanding. Initialled, dated, timed, and placed in chart.
[2021-06-05] MEDS: insulin lispro 100 unit/1 mL SUBCUT ×2 (12:42→18:39)
--- NOTE | 2021-06-05 15:26 | PM.PN ---
Subjective Subjective: Jump in leukocytosis steroids have been discontinued, she did receive Decadron and methylprednisolone yesterday Blood culture showing contamination staph epidermidis, aerobic culture showing Streptococcus viridans UTI culture came back positive for Enterococcus faecalis We will discontinue vancomycin, add Levaquin for Enterococcus along cefepime for Streptococcus Spoke with the daughter, family meeting was done this morning Goals of care discussed She is full code, most likely will need LTAC, she is high risk for intubation as she gets agitated and tries to rip off her BiPAP and heated high flow nasal cannula, eventually we had to use wrist restraints and Precedex drip today, family was updated, Vitals/I&O/Wt Last Vital Signs Temp 100 F H 06/05/21 08:00 Pulse 83 06/05/21 14:06 Resp 18 06/05/21 13:52 BP 154/91 06/05/21 13:00 Pulse Ox 93 06/05/21 13:52 06/05/21 06/05/21 06/05/21 06:59 14:59 22:59 Intake Total 400 / 1705 155.048 / 155.048 Output Total 400 / 850 Balance 0 / 855 155.048 / 155.048 Weight last 48 hrs Weight 73.482 kg Weight 74.446 kg Physical Exam Narrative: Patient is requiring higher FiO2 Currently on Precedex Nonfocal neuro exam however lethargic and fatigued Short attention span Very anxious Bilateral breath sound with rhonchi Abdomen soft Patient was trying to eat breakfast in the morning when I saw her Dry cough Hemoglobin Extremities are not edematous EOMI, PERRLA Urinary Catheter Management: Klein: Cath Placed During This Visit: yes Reason for Continuing Indwelling Catheter: Accurate Measurement of Urinary Output in Critically Ill Patients Urinary Catheter Date of Insertion: 06/02/21 Urinary Catheter Time of Insertion: 18:25 Data : 06/05/21 03:15 06/05/21 03:15 Micro: Microbiology 06/02/21 17:25 Blood Culture - Final Blood Staphylococcus epidermidis 06/02/21 17:25 Blood Culture - Final Blood Streptococcus viridans 06/02/21 18:27 Urine Culture - Final Urine,Clean Catch Enterococcus faecalis 06/05/21 08:23 Blood Culture - Preliminary Blood SPECIMEN COLLECTED 06/05/21 08:23 Blood Culture - Preliminary Blood SPECIMEN COLLECTED A&P Assessment and plan (1) COVID-19: Status: Acute (2) Hypoxia: Status: Acute (3) Hypertensive urgency: Status: Acute (4) UTI (urinary tract infection): Status: Acute (5) Bacteremia: Status: Acute (6) Depression with anxiety: Status: Acute (7) COPD (chronic obstructive pulmonary disease): Status: Acute Plan COVID-19 [id number] related hypoxia Currently on high FiO2 70 to 80% Transition between heated high flow to BiPAP Noncompliant Had to use wrist restraints and Precedex Family updated She is high risk for intubation Currently she is full code Most likely she will need LTAC, case monitor updated No signs of PE Bacteremia with Streptococcus viridans, Continue cefepime UTI with Enterococcus faecalis, would use p.o. Levaquin Afebrile, jump in leukocytosis likely secondary to use of double dose of steroids Low-grade temp Vancomycin can be discontinued Hypertensive urgency: Currently on Precedex drip closely monitor blood pressure I have optimized the dose of lisinopril Family meeting today for about 20 minutes Hypokalemia: Repleted Full code Cardiac diet DVT prophylaxis on board History of TIA: Continue Plavix Attestations Medical Necessity Statement*: Continue ICU management continue ICU management Time Spent in Patient Care: 25mins Coding Level of Care Code Acute Regional Account Director for [facility] Fwd Diagnoses COVID-19 U07.1 Hypoxia R09.02 Hypertensive urgency I16.0 UTI (urinary tract infection) N39.0 Bacteremia R78.81 Depression with anxiety F41.8 COPD (chronic obstructive pulmonary disease) J44.9
[2021-06-05 18:28] LABS: Glucose Point of Care 143 mg/dL (70-110)
--- NOTE | 2021-06-05 19:16 | PC.NURSE ---
Shift Note Pt confused.. She was very pleasant this am, got up to chair with 2 assist. She kept removing HHF cannula, at one point she had had enough of it being replaced in her nostrils and she shook her head too much to do so Notified. ( As she did yesterday.) Precedex gtt started.. Pt assisted back to bed, BIPap started as her O2 sats [id number]%. She kept trying to remove BiPap and fighting staff about O2, restraints were needed for her to safely receive O2. Family notified. D/C plan meeting with , Case management and family today. After she calmed HHF started again as BiPa making her nose sore. She did take the rest of her am oral meidcations at this time. Attempted to assist her with lunch after she was much calmer, she kept trying to pull her cannula out again and tried to throw water at staff. Urine output adequate. Bathing provided . Frequent safety and comfort rounds continue. Orders and/or nursing care completed as indicated. Patient monitored for response to intervention and treatment(s). Education provided includes Precedex, restraints and plan of care. Patient's representatives agreed and verbalized understanding of ongoing plan of care, medications and pt's condition. . Will continue to monitor.
[2021-06-05 21:30] LABS: Glucose Point of Care 117 mg/dL (70-110)
[2021-06-06] VITALS (36 sets, daily range): BP systolic 119–167; BP diastolic 69–132; PULSE 78–111; RESP 18–42; TEMP 37.3–37.8; O2SAT 83–96
[2021-06-06] MEDS: ipratropium-albuterol 3 mL Neb INHALATION ×4 (02:19→20:53)
[2021-06-06] MEDS: dexmedeTOMIDine 0.9 % NaCL 400 MCG/100 ML PREMIX 7.35 MCG IV (04:10)
[2021-06-06 05:04] LABS: Basophils % 0.2 %; Eosinophils % 0.1 %; Hematocrit 35.9 % (37.0-47.0); Hemoglobin 11.9 g/dL (11.5-15.3); Lymphocytes # 0.6 10^3/uL (0.8-4.8); Lymphocytes % 4.7 %; Mean Corpuscular HGB Conc 33.1 g/dL (30.0-36.0); Mean Corpuscular Hemoglobin 29.9 pg (28.0-34.0); Mean Corpuscular Volume 90.2 fl (81-99); Mean Platelet Volume 10.3 fL (7.4-10.4); Monocytes # 0.3 10^3/uL (0.2-0.9); Monocytes % 2.2 %; Neutrophils # 11.44 10^3/uL (1.8-7.7); Neutrophils % 91.6 %; Nucleated Red Blood Cells % 0 %; Platelet Count 228 10^3/cmm (130-400); Red Blood Count 3.98 10^6/uL (4.1-5.3); Red Cell Distribution Width 12.9 % (12.1-15.1); White Blood Count 12.5 10^3/uL (4.0-10.0)
[2021-06-06 05:12] LABS: ABG PCO2 31.7 mmHg (35-45); ABG PH Result 7.52 (7.35-7.45); Base Excess ABG 3.4 mmol/L (-2.0-2.0); HCO3 ABG 25.8 mmol/L (22-26); PO2 ABG 40.7 mmHg (80.0-100.0)
[2021-06-06 05:13] LABS: Arterial Blood Gas Hematocrit 38.2 % (37-47); Blood Gas Sample Type ARTERIAL; Oxygen Device HHFNC
[2021-06-06] MEDS: remdesivir 100 MG in sodium chloride 0.9% (100 ml) 100 ML IV (05:23)
[2021-06-06] MEDS: levoFLOXacin 750 mg Tablet PO (05:23)
[2021-06-06 05:31] LABS: Blood Urea Nitrogen 38 mg/dL (8-23); Calcium 9.5 mg/dL (8.5-10.5); Carbon Dioxide 22 mmol/L (22-29); Chloride 105 mmol/L (98-107); Glucose 112 mg/dL (65-115); Osmolality Calculated 304 mOsm/kg (285-295); Sodium 142 mmol/L (136-145)
[2021-06-06 05:35] LABS: Procalcitonin 0.16 ng/mL (0-0.5)
[2021-06-06] MEDS: enoxaparin 30 mg/0.3 mL Syringe SUBCUT ×2 (07:05→22:05)
[2021-06-06 07:20] LABS: Glucose Point of Care 115 mg/dL (70-110)
--- NOTE | 2021-06-06 07:46 | USCV_ITS ---
Bryce Schmidt Age: 75 Gender: F : 1945 Exam Date: 06/06/2021 06:20 Ordering Phys: Roel Del Rio MD Technologist: [place] [facility] [place]: BACTEREM[place] BP: 158 / 87 HR: 97 Rhythm: Sinus Technical Quality: Adequate MEASUREMENTS (Male / Female) Normal Values 2D ECHO LV Diastolic Diameter PLAX 3.2 cm 4.2 - 5.9 / 3.9 - 5.3 cm LV Systolic Diameter PLAX 2.1 cm IVS Diastolic Thickness 1.2 cm 0.6 - 1.0 / 0.6 - 0.9 cm IVS Systolic Thickness 1.1 cm LVPW Diastolic Thickness 1.1 cm 0.6 - 1.0 / 0.6 - 0.9 cm LVPW Systolic Thickness 1.5 cm LVOT Diameter 2.0 cm LV Ejection Fraction 2D Teich 63.2 % LV Ejection Fraction MOD 2C 50.3 % LV Ejection Fraction 2C AL 49.9 % LA Diameter 2.9 cm M-MODE Aortic Annulus Diameter 2.8 cm LA Ao Ratio MM 1.0 MV E Point Septal Separation 0.7 cm DOPPLER AV Peak Velocity 159.0 cm/s LVOT Peak Velocity 152.0 cm/s AV Area Cont Eq vti 2.8 cm squared AV Area Cont Eq pk 3.1 cm squared MV Area PHT 2.8 cm squared Mitral E to A Ratio 0.9 MV E' Velocity 44.5 cm/s Mitral E to MV E' Ratio 14.3 Mitral E to LV E' Lateral Ratio 13.6 Mitral E to LV E' Septal Ratio 15.3 TR Peak Velocity 263.0 cm/s TR Peak Gradient 27.7 mmHg TV Peak E Velocity 106.0 cm/s Right Atrial Pressure 3.0 mmHg Pulmonary Artery Systolic Pressu 30.7 mmHg PV Peak Velocity 104.0 cm/s FINDINGS Left Ventricle Normal left ventricular size and systolic function, EF 55 %. No regional wall motion abnormalities. Mild left ventricular hypertrophy. Grade I/IV diastolic dysfunction (abnormal relaxation filling pattern), normal to mildly elevated filling pressures. Right Ventricle The right ventricle is normal in size and function. Right Atrium The right atrium is normal in size. Left Atrium The left atrium is normal in size. Mitral Valve Thickened mitral valve. Trace mitral valve regurgitation. Aortic Valve Thickened aortic valve. Tricuspid Valve Trace tricuspid valve regurgitation. Pulmonic Valve Pulmonic valve not well visualized. Pericardium Normal pericardium without effusion. Aorta Normal ascending aorta dimension. CONCLUSIONS Normal left ventricular size and systolic function, EF 55 %. No regional wall motion abnormalities. Mild left ventricular hypertrophy. Grade I/IV diastolic dysfunction (abnormal relaxation filling pattern), normal to mildly elevated filling pressures. Minimally thickened aortic and mitral valves. Trace of mitral and tricuspid regurgitation. There is no pericardial effusion. There are no intracardiac masses. No previous study is available for comparison. Dr Allyson Richmond MD FACC (Electronically Signed) Final Date: 06 June 2021 11:42 S
[2021-06-06 09:18] LABS: ABG PCO2 26.7 mmHg (35-45); Alveolar-Arterial Oxygen Gradi 50.2 mmHg (5-10); Arterial Blood Gas Hematocrit 39.1 % (37-47); Blood Gas Allen Test Pos; Blood Gas Operator Identificat CAK; Blood Gas Sample Site Radial, left; Blood Gas Sample Type Arterial; Carboxyhemoglobin 1.3 %THgb (0.4-20.1); HCO3 ABG 24.1 mmol/L (22-26); HGB O2 Sat 85.5 % (95-100); Ionized Calcium Level - ABG 1.3 mmol/L (1.1-1.4); Methemoglobin 0.7 % (0.4-1.5); Oxygen Device HAG; Oxygen Saturation ABG 87.3; PO2 ABG 50.5 mmHg (80.0-100.0); Potassium Level - ABG 2.9 mmol/L (3.5-5.0); Total Hemoglobin 12.8 g/dL (12-16)
[2021-06-06 09:58] LABS: ABG PH Result 7.57 (7.35-7.45)
--- NOTE | 2021-06-06 10:10 | PC.NURSE ---
Patient unable to take PO at this time. Dr. Del Rio aware. Precedex titrated down.
[2021-06-06] MEDS: cefepime 1,000 MG in sodium chloride 0.9% (plus) 50 ML 100 MG IV ×2 (10:43→22:06)
[2021-06-06] MEDS: nicardipine 20 MG/200 ML PREMIX 50 MG IV (12:45)
[2021-06-06 13:04] LABS: Glucose Point of Care 135 mg/dL (70-110)
--- NOTE | 2021-06-06 14:28 | P.PN_ITS ---
Subjective Subjective: This morning patient is on higher dose of Precedex At the time of my evaluation she was very drowsy Requested RT to draw another ABG after increasing her FiO2 PO2 shelby up to 50.5 on 65%, plan to increase FiO2 to 80% She is saturating 92 to 93% For her hypertensive urgency I would start Cardene drip as she is not able to take p.o. pills Vitals/I&O/Wt Last Vital Signs Temp 99.4 F 06/06/21 11:00 Pulse 107 H 06/06/21 13:50 Resp 20 H 06/06/21 13:49 BP 154/96 06/06/21 13:00 Pulse Ox 94 06/06/21 13:49 06/05/21 06/06/21 06/06/21 22:59 06:59 14:59 Intake Total 94.952 / 350.000 258.096 / 258.096 Output Total 500 / 500 300 / 800 Balance -500 / -244.952 -205.048 / -450.000 258.096 / 258.096 Weight last 48 hrs Weight 72.121 kg Weight 73.482 kg Physical Exam Narrative: Patient is very drowsy with Precedex However saturating 90 to 93% Clinically euvolemic Diminished airflow bilaterally I do not appreciate rhonchi or crackles Neuro exam limited Abdomen is soft Klein catheter draining yellow-colored urine Urinary Catheter Management: Klein: Cath Placed During This Visit: yes Reason for Continuing Indwelling Catheter: Accurate Measurement of Urinary Output in Critically Ill Patients Urinary Catheter Date of Insertion: 06/02/21 Urinary Catheter Time of Insertion: 18:25 Data : 06/06/21 04:42 06/06/21 04:42 Micro: Microbiology 06/05/21 08:23 Blood Culture - Preliminary Blood NEGATIVE TO DATE 06/05/21 08:23 Blood Culture - Preliminary Blood NEGATIVE TO DATE 06/02/21 17:25 Blood Culture - Final Blood Staphylococcus epidermidis 06/02/21 17:25 Blood Culture - Final Blood Streptococcus viridans 06/02/21 18:27 Urine Culture - Final Urine,Clean Catch Enterococcus faecalis A&P Assessment and plan (1) Bacteremia: Status: Acute (2) COVID-19: Status: Acute (3) Hypertensive urgency: Status: Acute (4) Hypoxia: Status: Acute (5) UTI (urinary tract infection): Status: Acute (6) CKD (chronic kidney disease) stage 2, GFR 60-89 ml/min: Status: Acute Plan COVID-19 related hypoxia Currently on Precedex, requiring higher FiO2, heated high flow Had detailed meeting with her daughter yesterday No signs of PE Continue Decadron and finished remdesivir Concern for bacterial pneumonia however procalcitonin is unremarkable I have kept her on empirical coverage with IV antibiotics Blood culture positive with Streptococcus viridans, echo was requested which shows EF 55% grade 1 diastolic dysfunction, no pericardial effusion or masses visible on the echo My suspicion is low for endocarditis Repeat cultures negative to date Continue Levaquin and cefepime Hypertensive urgency: Start Cardene drip We will address her diet if not able to eat via p.o. route Full code DVT prophylaxis on board Attestations Medical Necessity Statement*: Continue ICU management Time Spent in Patient Care: 20min Coding Level of Care Code Acute Electrolog Operator for g Fwd Diagnoses Bacteremia R78.81 COVID-19 U07.1 Hypertensive urgency I16.0 Hypoxia R09.02 UTI (urinary tract infection) N39.0 CKD (chronic kidney disease) stage 2, GFR 60-89 ml/min N18.2
[2021-06-06 18:14] LABS: Glucose Point of Care 126 mg/dL (70-110)
[2021-06-06] MEDS: lidocaine 1% 5 ML in potassium chloride premix 100 ML 25 ML IV ×2 (18:26→22:08)
[2021-06-06] MEDS: nicardipine 20 MG/200 ML PREMIX 25 MG IV (20:54)
[2021-06-06] MEDS: dexmedeTOMIDine 0.9 % NaCL 400 MCG/100 ML PREMIX 5.51 MCG IV (22:21)
[2021-06-07] VITALS (23 sets, daily range): BP systolic 110–167; BP diastolic 72–118; PULSE 85–123; RESP 20–41; TEMP 36.9–37.2; O2SAT 87–97
[2021-06-07] MEDS: ipratropium-albuterol 3 mL Neb INHALATION ×4 (03:16→19:58)
[2021-06-07 04:05] LABS: ABG PCO2 35.3 mmHg (35-45); ABG PH Result 7.45 (7.35-7.45); Arterial Blood Gas Hematocrit 36.3 % (37-47); Base Excess ABG 0.8 mmol/L (-2.0-2.0); Blood Gas Sample Site Brachial, left; Blood Gas Sample Type Arterial; HCO3 ABG 24.5 mmol/L (22-26); Oxygen Device BIPAP; PO2 ABG 74.6 mmHg (80.0-100.0)
[2021-06-07 04:48] LABS: Basophils % 0.2 %; Eosinophils % 0.4 %; Hematocrit 37.2 % (37.0-47.0); Hemoglobin 11.6 g/dL (11.5-15.3); Lymphocytes # 0.6 10^3/uL (0.8-4.8); Mean Corpuscular HGB Conc 31.2 g/dL (30.0-36.0); Mean Corpuscular Hemoglobin 30.4 pg (28.0-34.0); Mean Corpuscular Volume 97.6 fl (81-99); Mean Platelet Volume 10.4 fL (7.4-10.4); Monocytes # 0.3 10^3/uL (0.2-0.9); Monocytes % 2.4 %; Neutrophils # 10.18 10^3/uL (1.8-7.7); Neutrophils % 91.1 %; Nucleated Red Blood Cells % 0 %; Platelet Count 140 10^3/cmm (130-400); Red Blood Count 3.81 10^6/uL (4.1-5.3); Red Cell Distribution Width 13.2 % (12.1-15.1); White Blood Count 11.2 10^3/uL (4.0-10.0)
[2021-06-07 05:08] LABS: Blood Urea Nitrogen 39 mg/dL (8-23); Calcium 9.3 mg/dL (8.5-10.5); Carbon Dioxide 20 mmol/L (22-29); Chloride 109 mmol/L (98-107); Glucose 133 mg/dL (65-115); Osmolality Calculated 307 mOsm/kg (285-295); Sodium 143 mmol/L (136-145)
[2021-06-07] MEDS: remdesivir 100 MG in sodium chloride 0.9% (100 ml) 100 ML IV (05:10)
[2021-06-07] MEDS: nicardipine 20 MG/200 ML PREMIX 25 MG IV ×2 (05:10→06:21)
[2021-06-07 05:48] LABS: Anion Gap 18.1 (5-19); Potassium 4.1 mmol/L (3.5-5.1)
[2021-06-07 08:08] LABS: Glucose Point of Care 138 mg/dL (70-110)
[2021-06-07] MEDS: lisinopril 10 mg Tablet 40 MG PO (08:31)
[2021-06-07] MEDS: enoxaparin 30 mg/0.3 mL Syringe SUBCUT ×2 (08:31→20:53)
[2021-06-07] MEDS: amlodipine 10 mg Tablet PO (08:31)
[2021-06-07] MEDS: metoprolol tartrate 25 mg Tablet PO ×2 (08:31→20:52)
[2021-06-07] MEDS: clopidogrel 75 mg Tablet PO (08:32)
[2021-06-07] MEDS: hydroCHLOROthiazide 25 mg Tablet 12.5 MG PO (08:32)
--- NOTE | 2021-06-07 10:56 | PM.PN ---
Subjective Subjective: Afebrile, leukocytosis improving PO2 improved on BiPAP 70% This morning patient was oriented to herself Nonfocal neuro exam No active signs of stroke Asked nurse to give her a break from BiPAP and let her eat on heated high flow 70 to 80% FiO2 Vitals/I&O/Wt Last Vital Signs Temp 98.4 F 06/07/21 08:00 Pulse 95 06/07/21 08:26 Resp 22 H 06/07/21 08:01 BP 116/78 06/07/21 08:00 Pulse Ox 89 L 06/07/21 08:01 06/06/21 06/07/21 06/07/21 22:59 06:59 14:59 Intake Total 437.038 / 695.134 268.388 / 963.522 240 / 240 Output Total 550 / 550 400 / 950 Balance -112.962 / 145.134 -131.612 / 13.522 240 / 240 Weight last 48 hrs Weight 72.575 kg Weight 72.121 kg Physical Exam Narrative: Patient was very cooperative this morning However oriented to herself No active signs of stroke Moving all of her extremities Clinically looks dehydrated Abdomen soft Bilateral breath sound with rhonchi Klein catheter draining yellow urine On BiPAP FiO2 80% Urinary Catheter Management: Klein: Cath Placed During This Visit: yes Reason for Continuing Indwelling Catheter: Accurate Measurement of Urinary Output in Critically Ill Patients Urinary Catheter Date of Insertion: 06/02/21 Urinary Catheter Time of Insertion: 18:25 Data : 06/07/21 03:45 06/07/21 03:45 Micro: Microbiology 06/05/21 08:23 Blood Culture - Preliminary Blood NEGATIVE TO DATE 06/05/21 08:23 Blood Culture - Preliminary Blood NEGATIVE TO DATE A&P Assessment and plan (1) Bacteremia: Status: Acute (2) COVID-19: Status: Acute (3) Hypertensive urgency: Status: Acute (4) Hypoxia: Status: Acute (5) UTI (urinary tract infection): Status: Acute (6) CKD (chronic kidney disease) stage 2, GFR 60-89 ml/min: Status: Acute (7) COPD (chronic obstructive pulmonary disease): Status: Acute (8) TIA (transient ischemic attack): Status: Acute Plan COVID-19 related hypoxia Currently doing well on FiO2 70% We are giving her a break between her meals from BiPAP to heated high flow She is oriented to herself Mentation has not improved however she is not agitated today Currently on Precedex I asked ICU nurse to watch her off Precedex drip for few hours and then decide whether we need to continue it or not She is getting dehydrated not eating very well No signs of PE Hypertensive emergency: Cardene drip to be weaned off today Repeat blood cultures negative UTI with Enterococcus faecalis, blood culture with Streptococcus viridans 06/02, MRSA PCR negative Afebrile no leukocytosis Echo unremarkable endocarditis less likely I am continuing cefepime and Levaquin for now Attestations Medical Necessity Statement*: Continue ICU management Time Spent in Patient Care: 20min Coding Level of Care Code Acute Director Of Cardiology Service Line for g Fwd Diagnoses Bacteremia R78.81 COVID-19 U07.1 Hypertensive urgency I16.0 Hypoxia R09.02 UTI (urinary tract infection) N39.0 CKD (chronic kidney disease) stage 2, GFR 60-89 ml/min N18.2 COPD (chronic obstructive pulmonary disease) J44.9 TIA (transient ischemic attack) G45.9
[2021-06-07] MEDS: cefepime 1,000 MG in sodium chloride 0.9% (plus) 50 ML 100 MG IV ×2 (11:14→20:53)
[2021-06-07] MEDS: dexmedeTOMIDine 0.9 % NaCL 400 MCG/100 ML PREMIX 11.02 MCG IV (11:23)
[2021-06-07] MEDS: insulin lispro 100 unit/1 mL SUBCUT (11:23)
[2021-06-07 11:24] LABS: Glucose Point of Care 149 mg/dL (70-110)
--- NOTE | 2021-06-07 12:19 | PC.SOCIAL ---
IMM Update Pg. 2 of IMM updated. Initialed, dated, and timed copy in chart. Copy provided at bedside.
[2021-06-07 17:34] LABS: Glucose Point of Care 133 mg/dL (70-110)
--- NOTE | 2021-06-07 18:34 | PC.NURSE ---
Shift note Patient has been confused yelling and attempting to take oxygen off. Bipap and heated high flow has been alternated this shift. Unable to eat food or swallow pills at this time. Frequent safety and comfort rounds continue. Orders and/or nursing care completed as indicated. Patient monitored for response to intervention and treatment(s). Education provided includes intubation. Daughter understood. Will continue to monitor.
[2021-06-07 22:10] LABS: Glucose Point of Care 131 mg/dL (70-110)
[2021-06-08] VITALS (11 sets, daily range): BP systolic 123–164; BP diastolic 76–102; PULSE 86–107; RESP 32–33; TEMP 37.4; O2SAT 89–94
[2021-06-08] MEDS: dexmedeTOMIDine 0.9 % NaCL 400 MCG/100 ML PREMIX 9.19 MCG IV (01:36)
[2021-06-08 03:52] LABS: ABG PH Result 7.49 (7.35-7.45); Arterial Blood Gas Hematocrit 37.9 % (37-47); Base Excess ABG 3.1 mmol/L (-2.0-2.0); Blood Gas Allen Test Pos; Blood Gas Sample Site Radial, right; Blood Gas Sample Type Arterial; HCO3 ABG 26.4 mmol/L (22-26); Oxygen Device NRB; PO2 ABG 56.8 mmHg (80.0-100.0)
--- NOTE | 2021-06-08 04:08 | PC.NURSE ---
CAlled Dr. Stover and notified of ABG results. Stated that to continue care at this time prepare for intubation this morning.
--- NOTE | 2021-06-08 04:10 | PC.NURSE ---
Placed patient on bipap per RT with restraints off patient.
--- NOTE | 2021-06-08 04:14 | PC.NURSE ---
CAlled Daughter Zulema Vasquez to update on patient status where is very labored breathing and begining to tire out. Is to talk to brother and make a decision about intubation vs comfort care.
--- NOTE | 2021-06-08 05:20 | PC.NURSE ---
Zulema RENDON called and informed me that she wanted to make the patient DNR witnessed by Eunice ALEXIS. CAlled and notified Dr. Stover to put in DNR orders.
[2021-06-08 06:02] LABS: Alanine Aminotransferase 18 U/L (0-33); Globulin 3.4 g/dL (1.3-4.6)
[2021-06-08 06:43] LABS: Albumin Level 2.8 g/dL (3.5-5.2); Alkaline Phosphatase 203 IU/L (35-105); Anion Gap 17.2 (5-19); Aspartate Amino Transferase 44 U/L (0-32); Blood Urea Nitrogen 38 mg/dL (8-23); Calcium 9.3 mg/dL (8.5-10.5); Carbon Dioxide 23 mmol/L (22-29); Chloride 113 mmol/L (98-107); Glucose 137 mg/dL (65-115); Osmolality Calculated 321 mOsm/kg (285-295); Potassium 3.2 mmol/L (3.5-5.1); Sodium 150 mmol/L (136-145); Total Bilirubin 0.7 mg/dL (0.15-1.2); Total Protein 6.1 g/dL (6.6-8.7)
[2021-06-08] MEDS: dexmedeTOMIDine 0.9 % NaCL 400 MCG/100 ML PREMIX 22.05 MCG IV (07:37)
[2021-06-08] MEDS: enoxaparin 30 mg/0.3 mL Syringe SUBCUT (07:50)
[2021-06-08] MEDS: dexamethasone 10 mg/mL INJ 6 MG IVP (07:51)
[2021-06-08] MEDS: ipratropium-albuterol 3 mL Neb INHALATION (07:55)
[2021-06-08] MEDS: morphine 10 mg/0.5 mL oral liq UD 5 MG PO ×2 (09:31→10:51)
[2021-06-08] MEDS: morphine 4 mg/mL SDV 1 mL 2 MG IVP (09:41)
--- NOTE | 2021-06-08 12:00 | PC.NURSE ---
Pt belongings Pt had a gold ring on her left hand. It was removed along with her dentures and life alert necklace. All were given to her daughter Zulema.
--- NOTE | 2021-06-08 12:00 | PC.NURSE ---
Pt to comfort care Pt changed to comfort care by family at approx 1000. The chaplains were notified and were able to have pt read her last rights. Her daughter Zulema and son Farrukh were present. Approx 1100 with the help of RT and nursing staff. Bipap was discontinued and pt given roxanol. Pt given PRN meds per orders. At 1154 pt went asystole. Family has been notified MTS contacted and pt is not a candidate for organ donation. Marcial Ayers notified.
--- NOTE | 2021-06-08 13:01 | PM.DDS ---
Discharge Providers DDS Date of Admission: 06/02/21 20:51 Date Summary Completed: 06/08/21 Attending Provider at Admission: Roel Del Rio MD Time of : 11:54 Attending Provider at Discharge: Roel Del Rio MD Primary Care Provider: Jose Rossi MD DS Diagnoses Hospital Diagnoses (1) Bacteremia: (2) COVID-19: (3) Hypertensive urgency: (4) Hypoxia: (5) UTI (urinary tract infection): (6) CKD (chronic kidney disease) stage 2, GFR 60-89 ml/min: (7) COPD (chronic obstructive pulmonary disease): (8) TIA (transient ischemic attack): Reason for Visit Reason for Visit POSSIBLE UTI Summary Date and Time of Date of : 06/08/21 Time of : 11:54 Summary Summary: Patient was admitted for management and evaluation of hypoxia related to COVID-19. Her symptoms worsened and she was transitioned from heated high flow to BiPAP. Patient was very confused and drowsy, she was ripping BiPAP mask off which would make her hypoxic right away. Family was involved and updated from day 1. Decision was made to start using Precedex along BiPAP to see if oxygen would improve however within next 48 hours patient rapidly declined, she was not able to eat at all, she was getting dehydrated, hypernatremic, during this hospitalization she was diagnosed with UTI and bacteremia with Streptococcus viridans, echo did not show any signs of endocarditis, for her hypertensive urgency she was started on Cardene drip which was gradually weaned off. Licensed Loan Officer spoke to the daughter on 06/07 and changed her CODE STATUS from full code to DNR/DNI, patient was getting drowsy and more hypoxic on 100% FiO2 on BiPAP, on 06/08 daughter who is her DPOA decided against intubation requested comfort measures because of lack of improvement. Patient at 1154. Nursery School Teacher was called to say prayers before we started comfort measures. All of the questions of family members were answered to their satisfaction. Additional Data Confirmation of as documented by pronouncing clinician: no pulse and pupils fixed and dilated Family: at bedside Additional persons at bedside: nursing staff Attending/PCP notified?: I am attending Was code activated?: No Autopsy requested?: No Advance directives?: No Hospice patient?: No Discharge Plan Discharge Patient Disposition: Home Condition: Stable Prescriptions: No Action vitamin E 200 unit capsule 400 unit PO DAILY 0RF ascorbate calcium (vitamin C) 500 mg tablet 500 mg PO DAILY 0RF (DME) DME: Walker Unit See Rx Instructions .Route Qty: 1 0RF Rx Instructions: Walker with seat and wheels atorvastatin 80 mg tablet 80 mg PO DAILY Qty: 90 3RF clopidogrel [Plavix] 75 mg tablet 75 mg PO DAILY Qty: 90 2RF fenofibrate micronized 200 mg capsule 200 mg PO DAILY Qty: 90 3RF venlafaxine 75 mg capsule,extended release 24hr 75 mg PO DAILY Qty: 90 3RF Anoro Ellipta 62.5-25 mcg/actuation blister with device 1 inh inhalation DAILY 30 Days Qty: 60 5RF Rx Instructions: 340 B meds Bystolic 20 mg tablet 20 mg PO DAILY Qty: 90 3RF Rx Instructions: 340 B meds cholecalciferol (vitamin D3) [Vitamin D3] 25 mcg (1,000 unit) Capsule 25 mcg PO DAILY 0RF albuterol sulfate 90 mcg/actuation HFA aerosol inhaler 2 puff INHALATION Q6H PRN (Reason: Shortness Of Breath) 0RF multivitamin Tablet 1 tab PO DAILY 0RF fluticasone propionate 50 mcg/actuation [place],Suspension 1 spray INTRANASAL BID 0RF Rx Instructions: administer into each nostril potassium gluconate 595 mg (99 mg) Tablet 595 mg PO DAILY 0RF esomeprazole magnesium [Nexium] 40 mg capsule,delayed release(DR/EC) 40 mg PO DAILY 0RF amlodipine 10 mg Tablet 5 mg PO DAILY Qty: 30 0RF denosumab 60 mg/mL syringe 60 mg SUBCUT Q180D 0RF Rx Instructions: One injection every 6 months for 3 injections, bring to office for each injection 340 B Referrals: Jose Rossi MD [Primary Care Provider] - Patient Instructions: Opioid Safety DS Attestations Time Spent in /Discharge Care*: less than 30 min Quality - AMI: AMI present?: No Quality - Stroke: CVA present?: No Quality - VTE: VTE present?: No Coding Level of Care Code Acute Solutions Developer for g Fwd Diagnoses Bacteremia R78.81 COVID-19 U07.1 Hypertensive urgency I16.0 Hypoxia R09.02 UTI (urinary tract infection) N39.0 CKD (chronic kidney disease) stage 2, GFR 60-89 ml/min N18.2 COPD (chronic obstructive pulmonary disease) J44.9 TIA (transient ischemic attack) G45.9
== END 2021-06-08 14:44 | disposition expired | DRG 177 ==
LOC: ER 17:22 → ICU 19:40
PROVIDERS: Admitting Provider Internal Medicine; Emergency Provider Family Medicine; PCP Family Medicine Adult Medicine; Visit Provider Internal Medicine
DX: U07.1 COVID-19 (principal); J12.82 Pneumonia due to coronavirus disease 2019; N39.0 Urinary tract infection, site not specified; R78.81 Bacteremia; E87.0 Hyperosmolality and hypernatremia; R09.02 Hypoxemia; I16.0 Hypertensive urgency; B95.5 Unspecified streptococcus as the cause of diseases classified elsewhere; N18.2 Chronic kidney disease, stage 2 (mild); J44.9 Chronic obstructive pulmonary disease, unspecified; E86.0 Dehydration; Z66 Do not resuscitate; Z79.02 Long term (current) use of antithrombotics/antiplatelets; F17.210 Nicotine dependence, cigarettes, uncomplicated; B95.2 Enterococcus as the cause of diseases classified elsewhere; E87.6 Hypokalemia; R45.1 Restlessness and agitation; I12.9 Hypertensive chronic kidney disease with stage 1 through stage 4 chronic kidney disease, or unspecified chronic kidney disease
CPT/HCPCS: 36415; 36416; 36600; 51702; 71045; 71275; 80048; 80051; 80053; 80202; 81001; 82009; 82330; 82550; 82803; 82805; 82962; 83605; 83735; 83880; 84145; 85025; 85378; 86140; 86403; 87040; 87077; 87086; 87150; 87186; 87205; 87449; 87635; 87641; 93005; 93306; 94640; 94660; 94664; 96365; 96366; 96367; 96372; 96375; 99285; A4570; J0692; J1100; J1650; J1815; J1956; J2270; J2405; J2543; J2920; J3370; J3480; J3486; J3490; J7050; Q9967